=== PATIENT | female | born 1965 | race Caucasian/White ===

== ENCOUNTER 2017-02-04 13:21 | Inpatient (IN) ==
--- NOTE | 2017-02-03 21:27 | Discharge Summary ---
<Isidra Torres - Last Filed: 02/03/17 21:25> Date of Encounter: 02/03/17 - Discharge Diagnosis (1) Painful total knee replacement Priority: Primary Status: Acute Qualifiers: Encounter type: initial encounter Qualified Code(s): T84.84XA - Pain due to internal orthopedic prosthetic devices, implants and grafts, initial encounter; Z96.659 - Presence of unspecified artificial knee joint (2) Chronic pain Priority: Secondary Status: Chronic Comments: Takes [place] 7.5/325mg TID. HOLD. Qualifiers: Chronic pain type: other chronic pain Qualified Code(s): G89.29 - Other chronic pain (3) Arrhythmia Priority: Secondary Status: Chronic Qualifiers: Arrhythmia type: unspecified cardiac arrhythmia Qualified Code(s): I49.9 - Cardiac arrhythmia, unspecified (4) CAD (coronary artery disease) Priority: Secondary Status: Chronic Qualifiers: Coronary Disease-Associated Artery/Lesion type: unspecified vessel or lesion type [place] vs. transplanted heart: unspecified whether [place] or transplanted heart Associated angina: angina presence unspecified Qualified Code(s): I25.10 - Atherosclerotic heart disease of [place] coronary artery without angina pectoris (5) Pacemaker Priority: Secondary Status: Chronic (6) Factor 5 Leiden mutation, heterozygous Priority: Secondary Status: Chronic (7) COPD (chronic obstructive pulmonary disease) Priority: Secondary Status: Chronic Qualifiers: COPD type: unspecified COPD (8) Seizure Priority: Secondary Status: Chronic (9) Morbid obesity Priority: Secondary Status: Chronic Qualifiers: Obesity type: unspecified obesity type (10) History of MRSA infection Priority: Secondary Status: Chronic - Discharge Medications Home Medications: Albuterol Sulfate [Albuterol Inhaler] 2 puff IH Q4HR PRN 09/26/15 [History] Diazepam [Valium] 5 mg PO DAILY PRN 09/26/15 [History] Loratadine [Claritin] 10 mg PO DAILY 09/26/15 [History] Meloxicam [Mobic] 7.5 mg PO HS 09/26/15 [History] Nitroglycerin 0.4 mg SL Q5MIN PRN 09/26/15 [History] Potassium Gluconate 75 mg PO DAILY 09/26/15 [History] Topiramate [Topamax] 200 mg PO BID 09/26/15 [History] Gabapentin [Neurontin] 600 mg PO HS 04/13/16 [History] Multivitamin [Multi-Day Vitamins] 1 tab PO DAILY 04/13/16 [History] Propafenone HCl [Propafenone HCl ER] 225 mg PO Q12H 04/13/16 [History] Clobetasol Propionate 0.05% [Temovate] 1 appl TP BID 05/25/16 [History] Ferrous Sulfate 325 mg PO TID 10/24/16 [History] Lactobacillus [Culturelle] 1 each PO DAILY 10/24/16 [History] OxyCODONE Immed Rel [Roxicodone 5 MG] 5 - 10 mg PO Q6HR PRN #40 tablet 02/03/17 [Rx] Rivaroxaban [Xarelto] 20 mg PO HS #14 tablet 02/03/17 [Rx] Rivaroxaban [Xarelto] 20 mg PO HS 02/04/17 [History] Prozac 10 mg PO DAILY 02/05/17 [History] Allergies/Adverse Reactions: Allergies [place] Allergy (Severe, Verified 10/24/16 14:33) Anaphylaxis Per patient she "can't breath, highly allergic" cephalexin Allergy (Verified 10/24/16 14:33) Rash Cephalosporins Allergy (Verified 10/24/16 14:33) Hives codeine Allergy (Verified 10/24/16 14:33) Rash Opioids - Morphine Analogues Allergy (Verified 10/24/16 14:33) Hives patient reports opiods optiform Adverse Reaction (Uncoded 10/24/16 14:33) Blister Primary care physician: Chelo Juarez MD - Patient Status Disposition: Home, Self-Care Condition: Good - Discharge Instructions Follow Up With: Rogerio Toth MD [Partnered Physician] - 03/05/17 10:55 am Isidra Torres PAC [Physician Student Activities Director] - 02/14/17 9:45 am Chelo Juarez MD [Primary Care Provider] - - Hospital Course Hospital course: Ms. Haley is a 51 year old female - Time Spent with Patient Total time spent providing and/or coordinating discharge services: <Rogerio Toth - Last Filed: 02/06/17 06:44> Date of Encounter: 02/06/17 Time of Encounter: 06:43 - Discharge Diagnosis (1) Painful total knee replacement Priority: Primary Status: Acute Qualifiers: Encounter type: subsequent encounter Qualified Code(s): T84.84XD - Pain due to internal orthopedic prosthetic devices, implants and grafts, subsequent encounter; Z96.659 - Presence of unspecified artificial knee joint (2) Arrhythmia Priority: Secondary Status: Chronic Qualifiers: Arrhythmia type: unspecified cardiac arrhythmia Qualified Code(s): I49.9 - Cardiac arrhythmia, unspecified (3) CAD (coronary artery disease) Priority: Secondary Status: Chronic Qualifiers: Coronary Disease-Associated Artery/Lesion type: unspecified vessel or lesion type [place] vs. transplanted heart: unspecified whether [place] or transplanted heart Associated angina: angina presence unspecified Qualified Code(s): I25.10 - Atherosclerotic heart disease of [place] coronary artery without angina pectoris (4) Pacemaker Priority: Secondary Status: Chronic (5) Factor 5 Leiden mutation, heterozygous Priority: Secondary Status: Chronic (6) COPD (chronic obstructive pulmonary disease) Priority: Secondary Status: Chronic Qualifiers: COPD type: unspecified COPD Qualified Code(s): J44.9 - Chronic obstructive pulmonary disease, unspecified (7) Seizure Status: Chronic (8) Chronic pain Priority: Secondary Status: Chronic Qualifiers: Chronic pain type: other chronic pain Qualified Code(s): G89.29 - Other chronic pain Primary care physician: Chelo Juarez MD - Patient Status Functional capacity at discharge: uses cane/walker Overall status at discharge: patient is progressing back to baseline - Hospital Course Hospital course: Ms. Haley is a 51 year old female The patient had an uneventful postoperative course. They received antibiotics and physical therapy and were discharged in stable condition. There will follow -up in the office in 2 weeks. xeralt a DVT prophylaxis - Time Spent with Patient Total time spent providing and/or coordinating discharge services:
[2017-02-04] MEDS ORDERED: Vancomycin 1,250 MG in D5% in Water 250 ML IVPB ONE (13:55)
[2017-02-04] MEDS ORDERED: Ringers Solution, Lactated 1,000 ML IVC SCH ×2 (14:00→20:11)
--- NOTE | 2017-02-04 14:36 | History & Physical Report ---
Date of Encounter: 02/04/17 Time of Encounter: 14:35 24 Hour HP Update - Instructions Instructions: If the History and Physical is less than 30 days old and was completed prior to A.M. admission and or procedure and has NOT been updated on calendar day of procedure please complete this update prior to performing procedure. - Update Patient reports changes in Medical Condition: No Changes in examination, assessment, or condition: No Changes in Medication: No Preop tests/diagnostics Reviewed: Yes Surgery Remains Indicated: Yes Consent for Planned Operative Procedure(s) Verified: Yes - Pre-Operative Checklist Preoperative Checklist Indicated: No Prophylactic Antibiotic Ordered: Yes Is VTE Prophylaxis Indicated?: Yes
[2017-02-04] MEDS ORDERED: Gabapentin 300 MG CAPSULE PO ONE (15:11)
[2017-02-04] MEDS ORDERED: Famotidine 20 MG/2 ML VIAL IVP ONE (15:11)
--- NOTE | 2017-02-04 15:26 | Anesthesia Evaluation PreOp ---
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 NURSE History: Seizures (last one 2 years ago) Other Medical History: Denies Any Significant HX Anesthesia History: No Prior Anesthetic Complications Alcohol Use: none Drug use: none Medications and Allergies Albuterol Sulfate [Albuterol Inhaler] 2 puff IH Q4HR PRN 09/26/15 [History] Diazepam [Valium] 5 mg PO DAILY PRN 09/26/15 [History] Loratadine [Claritin] 10 mg PO DAILY 09/26/15 [History] Meloxicam [Mobic] 7.5 mg PO HS 09/26/15 [History] Nitroglycerin 0.4 mg SL Q5MIN PRN 09/26/15 [History] Potassium Gluconate 75 mg PO DAILY 09/26/15 [History] Topiramate [Topamax] 200 mg PO BID 09/26/15 [History] Gabapentin [Neurontin] 900 mg PO HS 04/13/16 [History] Multivitamin [Multi-Day Vitamins] 1 tab PO DAILY 04/13/16 [History] Propafenone HCl [Propafenone HCl ER] 225 mg PO Q12H 04/13/16 [History] Clobetasol Propionate 0.05% [Temovate] 1 appl TP BID 05/25/16 [History] Ferrous Sulfate 325 mg PO TID 10/24/16 [History] Lactobacillus [Culturelle] 1 each PO DAILY 10/24/16 [History] OxyCODONE Immed Rel [Roxicodone 5 MG] 5 - 10 mg PO Q6HR PRN #40 tablet 02/03/17 [Rx] Rivaroxaban [Xarelto] 20 mg PO HS #14 tablet 02/03/17 [Rx] Rivaroxaban [Xarelto] 20 mg PO HS 02/04/17 [History] Allergies walnut Allergy (Severe, Verified 10/24/16 14:33) Anaphylaxis Per patient she "can't breath, highly allergic" cephalexin Allergy (Verified 10/24/16 14:33) Rash Cephalosporins Allergy (Verified 10/24/16 14:33) Hives codeine Allergy (Verified 10/24/16 14:33) Rash Opioids - Morphine Analogues Allergy (Verified 10/24/16 14:33) Hives patient reports opiods optiform Adverse Reaction (Uncoded 10/24/16 14:33) Blister - Meds/Allergy Pre-op Review Medications Reviewed: Yes Allergies Reviewed: Yes Beta Blockers on Current Med List: No Anesthesia Results - Labs Laboratory Tests 01/25/17 01/25/17 13:36 13:36 Hgb 12.0 Hct 38.4 Plt Count 165 Sodium 139 Potassium 4.6 H BUN 29 H Creatinine 1.16 H - Imaging EKG: report reviewed (SR AV Block) Anesthesia Exam O2 Sat Height 1.6 m Height 1.6 m Weight 89.811 kg Weight 89.811 kg O2 Sat by Pulse Oximetry 93 Vital Signs Temp Pulse Resp BP Pulse Ox 98.2 F 83 18 87/68 93 02/04/17 14:07 02/04/17 14:07 02/04/17 14:07 02/04/17 14:07 02/04/17 14:07 Height: 5'3 Weight: 198 lbs NPO (# of Hours): MN Pain Scale: 1 - HEENT Pupil (Motor): Pupils equal, EOMI Mallampati: II Teeth: Normal Oral Opening: Greater than 3 - SUPERVISING NURSE LOC: Oriented SUPERVISING NURSE Motor: Normal RUE, Normal LUE, Normal RLE, Normal LLE, Normal Face SUPERVISING NURSE Sensory: Normal: RUE, LUE, RLE, LLE, Face - Cardiac Rhythm: Regular Murmur: None JVD: No Carotid Bruit: No - Pulmonary Breath Sounds: bilateral Clear Anesthesia Assess/Plan ASA Score: 3 (HTN CAD) Modified [place] Scale for Level of Consciousness: Cooperative, oriented, and tranquil Anesthetic Plan: General, Regional Monitoring Plan: Standard Monitors Recovery Plan: PACU (Discussed GA and RA, agrees to proceed)
[2017-02-04] MEDS ORDERED: Tetracaine/PF 20 MG/2 ML AMPUL SPINA ONE (16:26)
[2017-02-04] MEDS ORDERED: ROPIVACAINE HCL/PF 0.5% 30 ML VIAL ONE (16:26)
[2017-02-04] MEDS ORDERED: Bupivacaine/Clonidine Syringe 1 EACH SYRINGE ONE (16:27)
[2017-02-04] MEDS ORDERED: *HR* Midazolam HCl 2 MG/2 ML VIAL ONE (16:34)
[2017-02-04] MEDS ORDERED: *HR* FentaNYL (PF) 100 MCG/2 ML VIAL ONE ×2 (16:34→17:10)
[2017-02-04] MEDS ORDERED: *HR* Propofol 200 MG/20 ML VIAL IVP ONE (16:52)
[2017-02-04] MEDS ORDERED: Lidocaine -MPF 2% 2 ML VIAL ONE (16:54)
--- NOTE | 2017-02-04 17:00 | Anesthesia Procedures ---
Date of Encounter: 02/04/17 Time of Encounter: 16:45 Procedures: Anesthesia - Nerve Block Procedure Date: 02/04/17 Time: 16:45 Checklist: Correct Patient Identifier Correct side: Right Blood Thinner: No Monitor Applied: EKG, BP, Pulse Oximetry Supplemental Oxygen via Nasal Cannula (L/min): 2 Sedation: Versed (mg): 2 Sedation: Fentanyl (mcg): 100 Indication: Post Op Analgesia Pre-op Neuro Deficits: No Block Type: Femoral, Other (iPACK) Catheter placed: No Sterile Technique: Yes Ultrasound used: Yes Anatomy identified: Yes Visual spread of Local: Yes Neuro Stimulation: Yes Nerve Stimulator Range: 0.2 - 0.4 mA Blood on Needle Aspiration: No Smooth Injection of Local: No Pain with Injection of Local: No Prep: Chlorhexadine Needle: 22 x 50 mm Stimuplex, 21 x 100 mm Stimuplex Local: 0.25% Bupivicaine w/Clonidine 20 mcg/cc, Ropivacaine (30cc) Number of Attempts: 1 Complications: None/effective block Vitals: VSS
[2017-02-04] MEDS ORDERED: *HR* Succinylcholine 200 MG/10 ML VIAL IVP ONE (17:14)
[2017-02-04] MEDS ORDERED: EPHEDrine 50 MG/ML VIAL ONE (17:54)
[2017-02-04] MEDS ORDERED: *HR* Enoxaparin 30 MG/0.3 ML SYRINGE SQ SCH (18:00)
--- NOTE | 2017-02-04 18:32 | Orthopedic Operative Note ---
Date of procedure: 02/04/17 Pre-op diagnosis: Painful aseptic loosening right total knee Post-op diagnosis: same Procedure: Procedure: Right revision total knee patellectomy Estimated blood loss: 500 mL Hardware: [place] hinge knee system: 24 mm Rajani extra small femur with 210 mm distal augments 10 x 1 55 stem tibia small 10 x 80 stem Exam Under anesthesia: Loss full extension 20 degrees Procedural Notes: Loose femoral component. Operative procedure: The patient was brought to the operating room and placed on the operating room table. After general anesthesia was administered the operative knee was examined. Findings were noted in the exam under anesthesia. The operative extremity was prepped and draped in sterile surgical fashion. The patient received IV antibiotics prior to skin incision. A standard midline incision was made centered over the patella through the old incision. The incision was made through the skin and subcutaneous tissue. A medial parapatellar tendon approach was performed. Care was taken to preserve tissue along the medial aspect of the patella. And to protect the patella tendon. The deep MCL was released off the medial tibia. The patella was excised up periosteally. Fluid was encountered this was normal joint fluid, Cultures were obtained and gram . The knee was brought into flexion the poly-was removed. The femur was loose and removed by hand. This has been the patient's third revision at least significant bone loss from previous surgeries. Attention was then turned to the tibial component. The tibia was well fixed required removal with osteotome. Patient has significant bone loss from previous surgeries. No additional bone loss was encountered. Originally the plan was do a proximal tibial replacement but the patient intact extensor mechanism did not want to disrupt this site to back to the hinge component. The tibia was reamed under fluoroscopic assistance to a 10 x 80 stem. It was sized to an extra small. This sat slightly off center. The femur was reamed to a 10 x 1 55 and extra small. Trial reduction revealed full extension with a +24 Rajani. All trial components removed. The knee septic 2 minutes with a Betadine saline solution. The tibia cemented first followed by the femur. The poly-was seated and the hinge component was constructed. Knee was brought into full extension while cement hardened. After the cement hardened the knee was irrigated out again. The extensor mechanism was closed with a running #2 PDS suture. The deep tissue was irrigated and closed deep with #1 PDS suture superficially with 0 PDS suture. The skin was closed with skin mikaela. The patient was placed in a sterile dressing and postoperative brace. They were extubated and transferred to recovery room in stable condition. Anesthesia: GETA Surgeon: Rogerio Toth Condition: stable Disposition: PACU
[2017-02-04] MEDS ORDERED: Ondansetron 4 MG/2 ML VIAL ONE (18:47)
[2017-02-04] MEDS ORDERED: Dexamethasone 4 MG/ML VIAL ONE (18:47)
[2017-02-04] MEDS: *HR* HYDROmorphone (PF) 1 MG/ML SYRINGE IVP PRN ×2 (18:55→19:00)
[2017-02-04] MEDS ORDERED: *HR* HYDROmorphone (PF) 1 MG/ML SYRINGE ONE (18:56)
--- NOTE | 2017-02-04 19:16 | Anesthesia Evaluation Post Op ---
Date of Encounter: 02/04/17 Time of Encounter: 19:15 - Vital Signs Vital Signs: Vital Signs/O2 Sat/Glucose, Most Current Temp Pulse Resp BP Pulse Ox 02/04/17 19:12 87 14 91/48 96 02/04/17 19:02 88 14 84/46 98 02/04/17 18:52 97.9 F 85 14 90/41 98 02/04/17 16:59 72 15 93/57 98 02/04/17 16:35 76 16 100/57 98 - Lungs Lungs: Clear Ascult./Percussion - Airway Airway: Non-obstructed - Cardiovascular Regular Rate - Mental Status Mental Status: Alert & Oriented, Answers Appropriately - Pain Pain Scale: 0 - Nausea Vomiting Nausea Vomiting: Not Present - Hydration Hydration: Ice chips - Discharge PostOp Status: Transfer Patient to floor
[2017-02-04 19:17] LABS: Hematocrit 32.7 % (35.3-44.9); Hemoglobin 10.4 g/dL (11.5-15.4)
[2017-02-04] MEDS ORDERED: Ringers Solution, Lactated 1,000 ML ONE (19:29)
[2017-02-04] MEDS ORDERED: Sennosides 8.6 MG TABLET PO PRN (20:11)
[2017-02-04] MEDS ORDERED: Naloxone 0.4 MG/ML INJ IVP PRN (20:11)
[2017-02-04] MEDS ORDERED: Ondansetron 4 MG/2 ML VIAL IVP PRN (20:11)
[2017-02-04] MEDS ORDERED: *HR* OxyCODONE Immed Rel 5 MG TABLET PO PRN (20:11)
[2017-02-04] MEDS ORDERED: MOM Conc 10 ML UD.LIQ PO PRN (20:11)
[2017-02-04] MEDS ORDERED: Nitroglycerin 0.4 MG TAB.SUBL SL PRN (20:11)
[2017-02-04] MEDS ORDERED: *HR* HYDROmorphone (PF) 1 MG/ML SYRINGE IVP PRN (20:11)
[2017-02-04] MEDS ORDERED: Temazepam 15 MG CAPSULE PO PRN (20:11)
[2017-02-04] MEDS ORDERED: diazePAM 5 MG TABLET PO PRN (20:11)
[2017-02-04] MEDS ORDERED: Acetaminophen 325 MG TABLET PO PRN (20:11)
[2017-02-04] MEDS ORDERED: Gabapentin 300 MG CAPSULE PO SCH (21:00)
[2017-02-04] MEDS: *HR* OxyCODONE Immed Rel 5 MG TABLET PO PRN (21:23)
[2017-02-04] MEDS: Topiramate 100 MG TABLET PO SCH (21:24)
[2017-02-04] MEDS: *HR* Rivaroxaban 10 MG TABLET PO SCH (21:26)
[2017-02-04] MEDS: Clindamycin 900 MG/50 ML 900 MG/50 ML IV.SOLN IVPB SCH (21:26)
[2017-02-04] MEDS: Clobetasol Propionate 0.05% TP SCH (21:27)
[2017-02-05] MEDS: *HR* OxyCODONE Immed Rel 5 MG TABLET PO PRN ×5 (03:09→23:24)
[2017-02-05] MEDS: Clindamycin 900 MG/50 ML 900 MG/50 ML IV.SOLN IVPB SCH (04:49)
--- NOTE | 2017-02-05 06:18 | Orthopedics Progress Note ---
Date of Encounter: 02/05/17 Time of Encounter: 06:18 - Assessment and Plan (1) Painful total knee replacement Current Visit: No Status: Acute Qualifiers: Encounter type: subsequent encounter Qualified Code(s): T84.84XD - Pain due to internal orthopedic prosthetic devices, implants and grafts, subsequent encounter; Z96.659 - Presence of unspecified artificial knee joint (2) Arrhythmia Current Visit: No Status: Chronic Qualifiers: Arrhythmia type: unspecified cardiac arrhythmia Qualified Code(s): I49.9 - Cardiac arrhythmia, unspecified (3) CAD (coronary artery disease) Current Visit: No Status: Chronic Qualifiers: Coronary Disease-Associated Artery/Lesion type: unspecified vessel or lesion type [place] vs. transplanted heart: unspecified whether [place] or transplanted heart Associated angina: angina presence unspecified Qualified Code(s): I25.10 - Atherosclerotic heart disease of [place] coronary artery without angina pectoris (4) Pacemaker Current Visit: No Status: Chronic (5) Factor 5 Leiden mutation, heterozygous Current Visit: No Status: Chronic (6) COPD (chronic obstructive pulmonary disease) Current Visit: No Status: Chronic Qualifiers: COPD type: unspecified COPD Qualified Code(s): J44.9 - Chronic obstructive pulmonary disease, unspecified (7) Seizure Current Visit: No Status: Chronic (8) Chronic pain Current Visit: Yes Status: Chronic Qualifiers: Chronic pain type: other chronic pain Qualified Code(s): G89.29 - Other chronic pain Subjective Interval history: Patient was seen this morning doing well without complaints. Afebrile vital signs stable. Operative extremity: Neurovascularly intact Dressing clean dry and intact [place] nontender Assessment and plan: Continue with postoperative care Hematocrit 32 Objective Vital signs: Vital Signs Temp Pulse Resp BP Pulse Ox 02/05/17 04:31 98.1 F 77 14 83/47 95 02/04/17 23:40 98.0 F 85 16 91/59 96 02/04/17 23:31 98 F 86 14 92/55 95 02/04/17 22:10 98.8 F 93 16 97/58 96 02/04/17 21:00 98.1 F 93 17 106/66 96 02/04/17 20:30 98.5 F 82 16 94/59 97 02/04/17 20:00 97.6 F 82 15 92/55 97 02/04/17 19:32 89 14 92/51 96 02/04/17 19:22 97.8 F 89 14 93/52 96 02/04/17 19:12 87 14 91/48 96 02/04/17 19:02 88 14 84/46 98 02/04/17 18:52 97.9 F 85 14 90/41 98 02/04/17 16:59 72 15 93/57 98 02/04/17 16:35 76 16 100/57 98 02/04/17 14:07 98.2 F 83 18 87/68 93 Intake and Output 02/04/17 02/04/17 02/05/17 15:59 23:59 07:59 Intake Total 1050 / 1050 50 / 50 Output Total 800 / 800 450 / 450 Balance 250 / 250 -400 / -400 Intake: IV Fluids 1050 / 1050 50 / 50 Lactated Ringers 1,000 ML 1000 / 1000 @ 75 mls/hr IVC .[id number] [facility] Rx#:[id number] Cleocin 900 MG/50 ML 900 50 / 50 50 / 50 mg In 50 ml @ 50 mls/hr IVPB Q8H [facility] Rx#: [id number] Output: Urine 300 / 300 450 / 450 Estimated Blood Loss 500 / 500 Other: # Voids 1 1 Weight 89.811 kg - Labs CBC & BMP: 02/04/17 19:06 Labs: Abnormal lab results Hgb 10.4 g/dL (11.5-15.4) L 02/04/17 19:06 Hct 32.7 % (35.3-44.9) L 02/04/17 19:06 - VTE Documentation of Mechanical Device: Venous foot pump, device Consult Discharge Plan - Plan Referrals: Chelo Juarez MD [Primary Care Provider] -
[2017-02-05] MEDS ORDERED: Gabapentin 300 MG CAPSULE PO SCH (06:19)
[2017-02-05 06:21] LABS: Hematocrit 32.3 % (35.3-44.9); Hemoglobin 10.3 g/dL (11.5-15.4)
[2017-02-05 06:30] LABS: BUN/Creatinine Ratio 29 (6-26); Blood Urea Nitrogen 30 mg/dL (7-20); Calcium 8.7 mg/dL (8.6-10.8); Carbon Dioxide 19 mEq/L (19-29); Chloride 110 mEq/L (98-109); Glucose 97 mg/dL (70-99); Osmolality,Calculated 288 (280-300); Potassium 4.3 mEq/L (3.5-4.5); Sodium 136 mEq/L (136-145); eGFR For African Americans > 60 (> 60); eGFR For Non-African Americans 56 (> 60)
[2017-02-05] MEDS: Lactobacillus 1 EACH CAP.SPRINK PO SCH (09:18)
[2017-02-05] MEDS: Multivit/Ca/Min/Fe/FA 1 TAB TABLET PO SCH (09:19)
[2017-02-05] MEDS: Topiramate 100 MG TABLET PO SCH ×2 (09:19→20:53)
[2017-02-05] MEDS: POTASSIUM GLUCONATE PO SCH (09:19)
[2017-02-05] MEDS: Loratadine 10 MG TABLET PO SCH (09:19)
[2017-02-05] MEDS: Clobetasol Propionate 0.05% TP SCH ×2 (09:19→20:54)
[2017-02-05] MEDS: *HR* Rivaroxaban 10 MG TABLET PO SCH (20:52)
[2017-02-05] MEDS ORDERED: FLUoxetine HCl 10 MG CAPSULE PO SCH (21:00)
[2017-02-06] MEDS: *HR* OxyCODONE Immed Rel 5 MG TABLET PO PRN ×2 (03:33→08:33)
[2017-02-06 04:54] LABS: Hemoglobin 9.7 g/dL (11.5-15.4)
[2017-02-06 05:19] LABS: BUN/Creatinine Ratio 29 (6-26); Blood Urea Nitrogen 29 mg/dL (7-20); Calcium 8.5 mg/dL (8.6-10.8); Carbon Dioxide 19 mEq/L (19-29); Chloride 110 mEq/L (98-109); Glucose 87 mg/dL (70-99); Osmolality,Calculated 287 (280-300); Potassium 4.1 mEq/L (3.5-4.5); Sodium 136 mEq/L (136-145); eGFR For African Americans > 60 (> 60); eGFR For Non-African Americans 59 (> 60)
--- NOTE | 2017-02-06 06:45 | Orthopedics Progress Note ---
Date of Encounter: 02/06/17 Time of Encounter: 06:44 - Assessment and Plan (1) Painful total knee replacement Current Visit: No Status: Acute Qualifiers: Encounter type: subsequent encounter Qualified Code(s): T84.84XD - Pain due to internal orthopedic prosthetic devices, implants and grafts, subsequent encounter; Z96.659 - Presence of unspecified artificial knee joint (2) Arrhythmia Current Visit: No Status: Chronic Qualifiers: Arrhythmia type: unspecified cardiac arrhythmia Qualified Code(s): I49.9 - Cardiac arrhythmia, unspecified (3) CAD (coronary artery disease) Current Visit: No Status: Chronic Qualifiers: Coronary Disease-Associated Artery/Lesion type: unspecified vessel or lesion type [place] vs. transplanted heart: unspecified whether [place] or transplanted heart Associated angina: angina presence unspecified Qualified Code(s): I25.10 - Atherosclerotic heart disease of [place] coronary artery without angina pectoris (4) Pacemaker Current Visit: No Status: Chronic (5) Factor 5 Leiden mutation, heterozygous Current Visit: No Status: Chronic (6) COPD (chronic obstructive pulmonary disease) Current Visit: No Status: Chronic Qualifiers: COPD type: unspecified COPD Qualified Code(s): J44.9 - Chronic obstructive pulmonary disease, unspecified (7) Seizure Current Visit: No Status: Chronic (8) Chronic pain Current Visit: Yes Status: Chronic Qualifiers: Chronic pain type: other chronic pain Qualified Code(s): G89.29 - Other chronic pain Subjective Interval history: Patient was seen this morning doing well without complaints. Afebrile vital signs stable. Operative extremity: Neurovascularly intact Dressing clean dry and intact Calves nontender Assessment and plan: Continue with postoperative care Hematocrit 30 discharged Objective Vital signs: Vital Signs Temp Pulse Resp BP Pulse Ox 02/06/17 04:00 97.8 F 87 17 100/62 95 02/06/17 00:00 99.6 F 82 18 86/50 94 02/05/17 20:00 99.2 F 86 17 80/46 95 02/05/17 19:23 80/44 02/05/17 14:55 98.3 F 92 18 82/58 96 02/05/17 11:26 79 18 84/57 94 02/05/17 11:02 98.0 F 79 18 84/57 94 Intake and Output 02/05/17 02/05/17 02/06/17 15:59 23:59 07:59 Intake Total 120 / 120 400 / 400 650 / 650 Output Total 700 / 700 Balance 120 / 120 400 / 400 -50 / -50 Intake: Oral 120 / 120 400 / 400 650 / 650 Output: Urine 700 / 700 Other: Meal Breakfast Percent of Meal Consumed 100% # Voids 2 1 - Labs CBC & BMP: 02/06/17 04:12 02/06/17 04:12 Labs: Abnormal lab results Hgb 9.7 g/dL (11.5-15.4) L 02/06/17 04:12 Hct 30.0 % (35.3-44.9) L 02/06/17 04:12 Chloride 110 mEq/L (98-109) H 02/06/17 04:12 BUN 29 mg/dL (7-20) H 02/06/17 04:12 Est GFR (Non-Af Amer) 59 (> 60) L 02/06/17 04:12 BUN/Creatinine Ratio 29 (6-26) H 02/06/17 04:12 Calcium 8.5 mg/dL (8.6-10.8) L 02/06/17 04:12 - VTE Documentation of Mechanical Device: Venous foot pump, device Consult Discharge Plan - Plan Referrals: Rogerio Toth MD [Partnered Physician] - 03/05/17 10:55 am Isidra Torres, PAC [Physician Music Copyist] - 02/14/17 9:45 am Chelo Juarez MD [Primary Care Provider] -
[2017-02-06] MEDS: Loratadine 10 MG TABLET PO SCH (08:33)
[2017-02-06] MEDS: Topiramate 100 MG TABLET PO SCH (08:33)
[2017-02-06] MEDS: Lactobacillus 1 EACH CAP.SPRINK PO SCH (08:33)
[2017-02-06] MEDS: POTASSIUM GLUCONATE PO SCH (08:34)
[2017-02-06] MEDS: Multivit/Ca/Min/Fe/FA 1 TAB TABLET PO SCH (08:34)
[2017-02-06] MEDS: Clobetasol Propionate 0.05% TP SCH (08:34)
[2017-02-06 10:16] VITALS: BP 89/52
== END 2017-02-06 12:10 | disposition home or self-care (01) | DRG 467 ==
LOC: SAMDAY 13:21 → 3NENU 20:05
PROVIDERS: ADMIT Orthopaedic Surgery; ATTEND Orthopaedic Surgery

== ENCOUNTER 2018-06-12 11:16 | Inpatient (IN) ==
--- NOTE | 2018-06-12 09:51 | Anesthesia Evaluation PreOp ---
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 History: Seizures (last seizure 3 years ago, well controlled on medication) Other Medical History: Renal, GERD, Other (Facor 5 Leiden S/P IVC filter) Anesthesia History: No Prior Anesthetic Complications, Past Anesthesia Alcohol Use: none Drug use: none Medications and Allergies Albuterol Sulfate [Albuterol Inhaler] 1 - 2 puff IH Q4-6H PRN 04/07/18 [History] Potassium Chloride [Klor-Con 10] 75 mg PO DAILY 04/07/18 [History] Rivaroxaban [Xarelto] 20 mg PO HS 04/07/18 [History] Cyclobenzaprine HCl 5 - 10 mg PO TID PRN 05/01/18 [History] Nitroglycerin [Nitrostat] 0.4 mg SL Q5M PRN MDD X3 DOSES CALL 911 05/01/18 [ History] Ciprofloxacin Lactate [Ciprofloxacin] 400 mg IV BID 05/27/18 [History] Oxycodone HCl/Acetaminophen [Percocet 5-325 mg Tablet] 5 mg PO PRN PRN 06/12/18 [History] Topiramate [Topamax] 200 mg PO BID 06/12/18 [History] 3 Allergy/AdvReac Type Severity Reaction Status Date / Time walnut Allergy Severe Difficulty Verified 06/10/18 10:59 Breathing Opioids - Morphine Analogues Allergy Itching Verified 06/10/18 10:59 cephalexin AdvReac Nausea Verified 06/10/18 10:59 codeine AdvReac Itching Verified 06/10/18 10:59 optiform AdvReac Blister Uncoded 04/07/18 08:21 - Meds/Allergy Pre-op Review Medications Reviewed: Yes Allergies Reviewed: Yes Beta Blockers on Current Med List: Yes If Beta Blockers taken, Date/Time (Last Dose taken): 06/12/2018 at 0730 Anesthesia Results - Labs Laboratory Tests 06/10/18 06/10/1806/10/18 11:40 11:40 11:40 WBC 5.0 Hgb 11.8 Hct 36.5 Plt Count 157 PT 10.6 INR 0.9 APTT 29.2 Sodium 140 Potassium 4.1 BUN 32 H Creatinine 0.94 - Imaging EKG: report reviewed (07/08/2017 ELECTRONIC ATRIAL PACEMAKER MODERATE VOLTAGE CRITERIA FOR LVH, CONSIDER NORMAL VARIANT [MEETS CRITERIA IN ONE OF: R(aVL), S( V1), R(V5), R(V5/V6)+S(V1)] POSSIBLE ANTERIOR MYOCARDIAL INFARCTION [30 ms Q WAVE IN V3/V4, OR R < 0.2 mV IN V4], OF INDETERMINATE AGE POOR R WAVE PROGRESSION Left axis deviation) Additional studies: 08/19/2017 Echo Impressions: LVEF 60%. Normal LV systolic function with regional variation (see Diagram below). Mild left ventricular diastolic dysfunction. Normal right ventricular structure and function. Mild chordal MARISOL without LVOTO. Mild tricuspid regurgitation. No pulmonary hypertension. 08/09/2017 Stress Impression: Perfusion imaging was negative for ischemia or infarct. Pharmacologic ECG was non diagnostic for ischemia. Patient had no chest pain with stress. No arrhythmias noted with stress. Gated EF = 64%. The LV is not dilated. There is no evidence of TID. Findings: Stress Note * Resting ECG demonstrated normal sinus rhythm. * No baseline arrhythmias were noted. * Pharmacologic stress ECG is non diagnostic for ischemia due to failure to reach target heartrate. * No chest pain or arrhythmias during stress. Hemodynamic responses * The patient demonstrated a blunted response blood pressure response. Study Quality * Study quality is average. Gated EF % * Gated EF = 64%. Left Ventricle * The left ventricle is not dilated. NORMALS * Normal wall motion. * All other segmental perfusion normal in stress. * All other segmental perfusion normal in rest. Apical Perfusion Rest * The apex segment shows a mild reduction in perfusion. Apical Perfusion Stress * The apex segment shows a mild reduction in perfusion. TID * No evidence of transient ischemic dilatation. Anesthesia Exam O2 Sat Height 1.7 m Height 1.7 m Height 1.7 m Weight 97.522 kg Weight 97.522 kg Weight 97.522 kg O2 Sat by Pulse Oximetry 100 O2 Sat by Pulse Oximetry 100 Vital Signs Temp Pulse Resp BP Pulse Ox 97.9 F 86 18 108/68 100 08/16/18 11:38 06/12/18 11:38 06/12/18 11:38 06/12/18 11:38 06/12/18 11:38 Height: 5'7'' Weight: 215 lbs NPO (# of Hours): 8 Pain Scale: 8 (right knee) Pain Scale Used: Numeric (1 - 10) - HEENT Pupil (Motor): EOMI Mallampati: II Teeth: Normal, Missing, Prosthesis Denture Type: Upper: Partial Oral Opening: Greater than 3 - OYSTER UNLOADER LOC: Oriented OYSTER UNLOADER Motor: Normal RUE, Normal LUE, Normal LLE, Normal Face, Deficit RLE OYSTER UNLOADER Sensory: Normal: RUE, LUE, RLE, LLE, Face - Cardiac Rhythm: Regular Murmur: None - Pulmonary Breath Sounds: bilateral Clear Respiratory Effort: Symmetrical Anesthesia Assess/Plan ASA Score: 3 Modified [place] Scale for Level of Consciousness: Cooperative, oriented, and tranquil Anesthetic Plan: General, Regional Monitoring Plan: Standard Monitors Recovery Plan: PACU
--- NOTE | 2018-06-12 11:31 | History & Physical Report ---
Date of Encounter: 06/12/18 Time of Encounter: 11:31 24 Hour HP Update - Instructions Instructions: If the History and Physical is less than 30 days old and was completed prior to A.M. admission and or procedure and has NOT been updated on calendar day of procedure please complete this update prior to performing procedure. - Update Patient reports changes in Medical Condition: No Changes in examination, assessment, or condition: No Changes in Medication: No Preop tests/diagnostics Reviewed: Yes Surgery Remains Indicated: Yes Consent for Planned Operative Procedure(s) Verified: Yes - Pre-Operative Checklist Preoperative Checklist Indicated: No Prophylactic Antibiotic Ordered: Yes Is VTE Prophylaxis Indicated?: Yes
--- NOTE | 2018-06-12 11:34 | Discharge Summary ---
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 transplanted heart: [place] heart Associated angina: angina presence unspecified Qualified Code(s): I25.10 - Atherosclerotic heart disease of [place] coronary artery without angina pectoris (4) COPD (chronic obstructive pulmonary disease) Priority: Secondary Status: Chronic Qualifiers: COPD type: unspecified COPD Qualified Code(s): J44.9 - Chronic obstructive pulmonary disease, unspecified (5) Chronic pain Priority: Secondary Status: Chronic Qualifiers: Chronic pain type: other chronic pain Qualified Code(s): G89.29 - Other chronic pain (6) Factor 5 Leiden mutation, heterozygous Priority: Secondary Status: Chronic (7) History of MRSA infection Priority: Secondary Status: Chronic (8) Pacemaker Priority: Secondary Status: Chronic (9) Seizure Priority: Secondary Status: Chronic (10) 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 Haley is a 52 year old female Status post revision right total knee. Cultures negative. Patient with acute blood loss anemia requiring transfusion. Received antibiotics physical therapy discharge stable condition - Time Spent with Patient Total time spent providing and/or coordinating discharge services: - Discharge Medications Home Medications: Potassium Chloride [Klor-Con 10] 75 mg PO DAILY 04/07/18 [History] Rivaroxaban [Xarelto] 20 mg PO HS 04/07/18 [History] Nitroglycerin [Nitrostat] 0.4 mg SL Q5M PRN MDD X3 DOSES CALL 911 05/01/18 [ History] OxyCODONE Immed Rel [Roxicodone 5 MG] 5 mg PO Q4HR PRN 5 Days #20 tablet [Rx] Topiramate [Topamax] 200 mg PO BID 06/12/18 [History] Allergies/Adverse Reactions: 3 Allergy/AdvReac Type Severity Reaction Status Date / Time walnut Allergy Severe Difficulty Verified 06/10/18 10:59 Breathing Opioids - Morphine Analogues Allergy Itching Verified 06/10/18 10:59 cephalexin AdvReac Nausea Verified 06/10/18 10:59 codeine AdvReac Itching Verified 06/10/18 10:59 optiform AdvReac Blister Uncoded 04/07/18 08:21 Primary care physician: Chelo Juarez MD - Patient Status Disposition: Home Health Service Condition: Good Functional capacity at discharge: uses cane/walker Overall status at discharge: patient is progressing back to baseline - Discharge Instructions Follow Up With: Clifton Mahoney DO [Partnered Physician] - 06/23/18 9:00 am Rogerio Toth MD [Partnered Physician] - 07/09/18 5:40 pm Isidra Torres PAC [Physician Recovery Room Rn] - 06/19/18 1:00 pm (ALSO, 06/27/18 @ 8:30AM ) Matthias Villasenor MD [Partnered Physician] - 10/09/18 3:00 pm Chelo Juarez MD [Primary Care Provider] - Yovany Shaver MD [Partnered Physician] - 06/19/18 10:45 am Additional Instructions: Discharge Instructions: Total Knee Replacement Please call [facility] ([phone]), your Primary Care Physician, or report to the Emergency Room if you have any of the following symptoms: Nausea, vomiting, fever greater that 101.5, swelling, chest pain, shortness of breath, increased pain/redness/drainage/odor for your incision site, numbness/ tingling, or any other concerning symptoms. ACTIVITY:Weight-bearing as tolerated. You may progress off support (crutches or walker) as tolerated. Incentive Spirometer 10 times an hour. MEDICATIONS: Upon discharge resume your home medications. Take all the medications as prescribed. Take a stool softener if taking narcotic pain medications. Stool softeners are only effective if you drink enough fluids. Drink 6-8 glass of water or fluids a day, unless this is not allowed for another health problem. Despite using stool softeners, if you haven't had a bowel movement in 3 days, please switch to a gentle laxative. Gentle laxatives are sold over the counter. You should have a bowel movement within 24 hours, if not call the office. You will be discharged from the hospital with a prescription for pain medication. You are encouraged to decrease the use of narcotic pain medication as tolerated. Should you require a refill, please call the office. [facility] prescribes narcotic pain medication for only 4-6 weeks after surgery. If you require pain medication beyond this time period, you may be referred to your Primary Care Physician or to the Pain Clinic for further evaluation. Plan ahead for refills on pain medication as many narcotics either need to be picked up at the office or mailed. It is best to call 48-72 hours in advance of needing a prescription refill so you don't run out of medication. To help control the post-operative pain, you may take NSAIDs (Aleve,Advil, Motrin, Ibuprofen, Naprosyn) or Tylenol as prescribed on the bottle in addition to the pain medication. ANTICOAGULATION (blood thinners): Continue your Aspirin, Lovenox or Coumadin as prescribed to help prevent a blood clot in the leg or in the lungs. As long as your incision remains dry and you tolerate the NSAIDs (Aleve, Advil, Motrin, ibuprofen, naprosyn), it is OK to use the NSAIDS while you are taking your anticoagulation medication. Should your incision start to drain, stop the NSAID and contact our office. Common symptoms of blood clot in the legs include: localized pain, swelling, calf tenderness, redness or discoloration of the skin. Blood clot in the lung symptoms include: shortness of breath, rapid pulse, sweating, and chest pain that worsens with deep breathing, coughing up blood, lightheadedness, feelings of anxiety. If you experience any of these symptoms notify your physician immediately, go to the emergency room, or if having trouble breathing, call 911. WOUND CARE: Leave the dressing on for 7 to 10days. You may change the dressing if it becomes saturated greater than 50%. Do not get the dressing wet at anytime. Wash your hands with antibacterial soap, rinse and dry prior to any wound care. If you have mikaela the visiting nurse or rehab facility can remove the stapes 10-14 days after surgery and place steri-strips across the wound. Leave the steri-strips in place until they fall off on their won. You may let water from the shower run on top of the steri-strips. If you do not have a visiting nurse or rehab facility, you will need to return to the office at 10-14 days for the mikaela to be removed. If you have itching or redness around the dressing call the office. FOLLOW-UP: Please follow up with your surgeon in the orthopedic clinic in 4 weeks from the day of surgery. If you have mikaela that need to be removed, you will need to come back to the office in 10-14 days from the day of surgery.
[2018-06-12] MEDS ORDERED: Clindamycin 900 MG/50 ML 900 MG/50 ML IV.SOLN IVPB ONE (11:37)
[2018-06-12] MEDS ORDERED: Ringers Solution, Lactated 1,000 ML IVC SCH (11:45)
[2018-06-12] MEDS ORDERED: Bupivacaine/Clonidine Syringe 1 EACH SYRINGE ONE (12:59)
[2018-06-12] MEDS ORDERED: ROPIVACAINE HCL/PF 0.5% 30 ML VIAL ONE (12:59)
[2018-06-12] MEDS ORDERED: *HR* Promethazine 25 MG/ML VIAL IVP PRN (13:22)
[2018-06-12] MEDS ORDERED: Dexamethasone 4 MG/ML VIAL IVP ONE (13:22)
[2018-06-12] MEDS ORDERED: Ethanol\\Acetic Acid\\Na Ace\\Ben 1,000 ML IRRIG.SOLN IR ONE ×2 (13:22→14:06)
[2018-06-12] MEDS ORDERED: Ondansetron 4 MG/2 ML VIAL IVP ONE (13:22)
[2018-06-12] MEDS ORDERED: *HR* Labetalol 20 MG/4 ML SYRINGE IVP PRN (13:22)
--- NOTE | 2018-06-12 13:26 | Anesthesia Procedures ---
Date of Encounter: 06/12/18 Time of Encounter: 13:00 Procedures: Anesthesia - Nerve Block Procedure Date: 06/12/18 Time: 13:00 Allergies/Adv Reactions: mutiple see chart Pre-op Diagnosis: right knee revision Surgical Procedure: right knee arthrtitis Checklist: Correct Patient Identifier, Correct procedure, History checked Correct side: Right Blood Thinner: No Monitor Applied: EKG, BP, Pulse Oximetry Supplemental Oxygen via Nasal Cannula (L/min): 2 Sedation: Versed (mg): 2 Sedation: Fentanyl (mcg): 100 Indication: Post Op Analgesia Pre-op Neuro Deficits: No Block Type: Femoral (ipack ) Catheter placed: No Sterile Technique: Yes Ultrasound used: Yes Anatomy identified: Yes Visual spread of Local: Yes Neuro Stimulation: Yes Nerve Stimulator Range: 0.2 - 0.4 mA Blood on Needle Aspiration: No Smooth Injection of Local: Yes Pain with Injection of Local: No Prep: Chlorhexadine Needle: 21 x 100 mm Stimuplex Local: 0.25% Bupivicaine w/Clonidine 20 mcg/cc (ipack ), Ropivacaine (femoral 0.5% ropi with 8mg decadron ) Volume (cc): 50 Number of Attempts: 1 Complications: None/effective block Vitals: Vital Signs - Last 8 Hours Temp Pulse Resp BP Pulse Ox 06/12/18 13:16 10 16 109/69 97 06/12/18 13:01 68 16 122/73 99 06/12/18 12:04 97.9 F 86 18 108/68 100 06/12/18 11:38 97.9 F 86 18 108/68 100 Intake and Output 06/11/18 06/12/18 06/12/18 23:59 07:59 15:59 Other: Weight 97.522 kg Patient Weight 06/12/18 23:59 Weight 97.522 kg Comments: per dr. johnson request
[2018-06-12] MEDS ORDERED: Acetaminophen IV 1,000 MG/100 ML INFUS..BTL ONE (14:04)
--- NOTE | 2018-06-12 16:06 | Orthopedic Operative Note ---
Date of procedure: 06/12/18 Pre-op diagnosis: Infected hinge right total knee Post-op diagnosis: same Procedure: Procedure: Irrigation debridement revision femoral component to distal femoral replacement hinged total knee Estimated blood loss: 600 mL Hardware: Metal and Rajani, [place] GMRS distal femur standard right 65 mm length , 10 x 102 mm straight stem, 24 mm tibial insert with pushing components. 3 Arthrex cerclage fiber tape Findings: Patient with a 2 x 4 cm wound dehiscence no purulent drainage. Intra- Op cultures no bacteria and Gram stain. Patient's femoral component grossly loose. Tibial component well fixed. Dictation of surgery. Patient brought to the operating placed on the operating table after general anesthesia was administered the right lower extremity was prepped and draped in sterile surgical fashion patient received IV antibiotics prior skin incision. An elliptical incision was made around the open area is incision well below the bed. Resection was made through skin subcutaneous tissue, hemostasis was obtained Bovie cautery. Patient had previous patellectomy a medial parapatellar tendon approach was performed. Cultures were obtained fluid was consistent with normal joint appearing fluid. The hinge was disassembled. The knee was brought into flexion the femoral component was grossly loose rotating around the stem. Stem was well fixed. In order to remove the femoral component, the stem needs to be removed. The femur split distally approximately 6 cm a longitudinal fashion this was then split open with an osteotome and in time the femoral component and stem were removed. The bone was transected at the appropriate level and 3 Arthrex cerclage fiber tapes were passed subperiosteally around the femur to close the osteotomy. Attention was turned to the tibia and the tibia was examined and found to be well fixed. Attention was then turned back to the femur, under fluoroscopic assistance the distal femur was reamed to fit a 10 x 102 mm straight stem. The trial distal femoral component were assembled with the hinge the patient had full extension with the 24 mm Rajani. All trial components removed the knee sat for 2 minutes with an antibacterial solution. This is then irrigated out with 1 L pulse irrigation. The components were assembled on the back table the distal femur was cemented in place. It was fixated through the hinge components to the tibial component. Brought into full extension while cement hardened. The component was irrigated with an antibacterial solution. It was closed over a JESSICA drain the extensor mechanism with a running #2 PDS suture subcutaneous tissue closed deep #1 PDS suture superficially with 0 Monocryl suture skin was closed with skin mikaela. Patient placed sterile dressing postoperative brace extubated transferred to recovery in stable condition. Anesthesia: GETA Surgeon: Rogerio Toth Was there an event marketing assistant present: No Estimated blood loss (cc): 600 Condition: stable Disposition: PACU
[2018-06-12] MEDS: *HR* HYDROmorphone (PF) 1 MG/ML SYRINGE IVP PRN ×4 (16:07→16:54)
[2018-06-12 16:50] LABS: Hematocrit 40.5 % (35.3-44.9); Hemoglobin 13.1 g/dL (11.5-15.4)
--- NOTE | 2018-06-12 16:57 | Anesthesia Evaluation Post Op ---
Date of Encounter: 06/12/18 Time of Encounter: 16:56 - Vital Signs Vital Signs: Last Vital Signs Temp 98.8 F 06/12/18 16:30 Pulse 83 06/12/18 16:50 Resp 16 06/12/18 16:50 BP 104/51 06/12/18 16:50 Pulse Ox 100 06/12/18 16:50 - Lungs Lungs: Clear Ascult./Percussion - Airway Airway: Non-obstructed - Cardiovascular Regular Rate - Mental Status Mental Status: Alert & Oriented, Answers Appropriately - Pain Pain Scale: 5 Pain Scale used: Acevedo-Mary Kate (Faces) - Nausea Vomiting Nausea Vomiting: Not Present - Hydration Hydration: Tolerates oral liquids, Ice chips - Discharge PostOp Status: Transfer Patient to floor
[2018-06-12] MEDS ORDERED: Dexamethasone 4 MG/ML VIAL ONE (17:23)
[2018-06-12] MEDS ORDERED: *HR* Midazolam HCl 2 MG/2 ML VIAL ONE (17:23)
[2018-06-12] MEDS ORDERED: *HR* FentaNYL (PF) 100 MCG/2 ML VIAL ONE (17:23)
[2018-06-12] MEDS ORDERED: *HR* Propofol 200 MG/20 ML VIAL IVP ONE (17:23)
[2018-06-12] MEDS ORDERED: Ondansetron 4 MG/2 ML VIAL ONE (17:23)
[2018-06-12] MEDS ORDERED: Lidocaine -MPF 2% 2 ML VIAL ONE (17:23)
[2018-06-12] MEDS ORDERED: MOM Conc 10 ML UD.LIQ PO PRN (17:33)
[2018-06-12] MEDS ORDERED: Nitroglycerin 0.4 MG TAB.SUBL SL PRN (17:33)
[2018-06-12] MEDS ORDERED: Sennosides 8.6 MG TABLET PO PRN (17:33)
[2018-06-12] MEDS ORDERED: Ondansetron 4 MG/2 ML VIAL IVP PRN (17:33)
[2018-06-12] MEDS ORDERED: Temazepam 15 MG CAPSULE PO PRN (17:33)
[2018-06-12] MEDS ORDERED: Naloxone 0.4 MG/ML INJ IVP PRN (17:33)
[2018-06-12 19:43] LABS: BUN/Creatinine Ratio 34 (6-26); Blood Urea Nitrogen 27 mg/dL (6-20); eGFR For Non-African Americans > 60 (> 60)
[2018-06-12] MEDS: *HR* Rivaroxaban 10 MG TABLET PO SCH (21:08)
[2018-06-12] MEDS: *HR* OxyCODONE/APAP 5/325 TABLET PO PRN (21:08)
[2018-06-12] MEDS: Topiramate 100 MG TABLET PO SCH (21:11)
[2018-06-12] MEDS: Ringers Solution, Lactated 1,000 ML IVC SCH (21:17)
[2018-06-12] MEDS: *HR* OxyCODONE Immed Rel 5 MG TABLET PO PRN (21:17)
[2018-06-12] MEDS ORDERED: Vancomycin 1,000 MG VIAL IVPB SCH (23:00)
[2018-06-13 01:50] LABS: Hematocrit 28.7 % (35.3-44.9)
[2018-06-13 01:52] LABS: Hemoglobin 9.1 g/dL (11.5-15.4)
[2018-06-13 02:13] LABS: BUN/Creatinine Ratio 31 (6-26); Blood Urea Nitrogen 26 mg/dL (6-20); Calcium 8.2 mg/dL (8.6-10.3); Carbon Dioxide 21 mEq/L (23-29); Chloride 112 mEq/L (98-107); Glucose 220 mg/dL (70-105); Osmolality,Calculated 296 (280-300); Potassium 4.8 mEq/L (3.5-5.1); Sodium 137 mEq/L (136-145); eGFR For Non-African Americans > 60 (> 60)
[2018-06-13] MEDS: *HR* OxyCODONE Immed Rel 5 MG TABLET PO PRN ×5 (02:22→23:51)
--- NOTE | 2018-06-13 06:44 | Orthopedics Progress Note ---
Date of Encounter: 06/13/18 Time of Encounter: 06:43 - Assessment and Plan (1) Infection of total knee replacement Current Visit: Yes Status: Chronic Qualifiers: Encounter type: subsequent encounter Qualified Code(s): T84.59XD - Infection and inflammatory reaction due to other internal joint prosthesis, subsequent encounter; Z96.659 - Presence of unspecified artificial knee joint (2) Obesity (BMI 30.0-34.9) Current Visit: Yes Status: Chronic (3) CAD (coronary artery disease) Current Visit: No Status: Chronic Qualifiers: Coronary Disease-Associated Artery/Lesion type: [place] artery [place] vs. transplanted heart: [place] heart Associated angina: angina presence unspecified Qualified Code(s): I25.10 - Atherosclerotic heart disease of [place] coronary artery without angina pectoris (4) COPD (chronic obstructive pulmonary disease) Current Visit: No Status: Chronic Qualifiers: COPD type: unspecified COPD Qualified Code(s): J44.9 - Chronic obstructive pulmonary disease, unspecified (5) Chronic pain Current Visit: No Status: Chronic Qualifiers: Chronic pain type: other chronic pain Qualified Code(s): G89.29 - Other chronic pain (6) Factor 5 Leiden mutation, heterozygous Current Visit: No Status: Chronic (7) History of MRSA infection Current Visit: No Status: Chronic (8) Pacemaker Current Visit: No Status: Chronic (9) Seizure Current Visit: No Status: Chronic (10) 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 Afebrile vital signs stable. Operative extremity: Neurovascularly intact Dressing clean dry and intact Calves nontender Assessment and plan: Continue with postoperative care Hemoglobin 9.1 Gram stain negative JESSICA drain 120 mL no knee motion continue with drain weightbearing as tolerated Objective Vital signs: Vital Signs Temp Pulse Resp BP Pulse Ox 06/13/18 06:28 80 88/52 06/13/18 05:54 97.9 F 73 16 70/40 97 06/12/18 23:45 98.6 F 78 16 110/66 95 06/12/18 20:10 98.8 F 82 16 98/68 96 06/12/18 19:00 98.3 F 77 16 96/68 96 06/12/18 18:05 98.1 F 86 12 95/63 99 06/12/18 17:20 97.8 F 85 12 100/67 99 06/12/18 17:09 80 16 106/50 100 06/12/18 17:00 98.6 F 80 16 108/53 100 06/12/18 16:50 83 16 104/51 100 06/12/18 16:40 84 16 95/55 100 06/12/18 16:30 98.8 F 82 18 98/55 100 06/12/18 16:20 80 18 91/59 100 06/12/18 16:10 81 18 107/61 96 06/12/18 16:00 97.6 F 91 16 110/68 100 06/12/18 13:31 82 16 111/69 99 06/12/18 13:16 10 16 109/69 97 06/12/18 13:01 68 16 122/73 99 06/12/18 12:04 97.9 F 86 18 108/68 100 06/12/18 11:38 97.9 F 86 18 108/68 100 Intake and Output 06/12/18 06/12/18 06/13/18 15:59 23:59 07:59 Intake Total 50 / 50 900 / 900 Output Total 750 / 750 135 / 135 Balance 50 / 50 150 / 150 -135 / -135 Intake: IV Fluids 50 / 50 Cleocin Premix 900 MG/50 ML 900 50 / 50 mg In 50 ml @ 100 mls/hr IVPB PREOP ONE Rx#:[id number] Oral 900 / 900 Output: Estimated Blood Loss 600 / 600 Wound Drainage 150 / 150 135 / 135 Right Knee 50 / 50 135 / 135 Other: # Voids 1 Weight 97.522 kg - Labs CBC & BMP: 06/13/18 01:06 06/13/18 01:06 Labs: Abnormal lab results Hgb 9.1 g/dL (11.5-15.4) L D 06/13/18 01:06 Hct 28.7 % (35.3-44.9) L 06/13/18 01:06 Chloride 112 mEq/L (98-107) H 06/13/18 01:06 Carbon Dioxide 21 mEq/L (23-29) L 06/13/18 01:06 BUN 26 mg/dL (6-20) H 06/13/18 01:06 BUN/Creatinine Ratio 31 (6-26) H 06/13/18 01:06 Glucose 220 mg/dL (70-105) H 06/13/18 01:06 Calcium 8.2 mg/dL (8.6-10.3) L 06/13/18 01:06 - VTE Documentation of Mechanical Device: Venous foot pump, device Consult Discharge Plan - Plan Referrals: Chelo Juarez MD [Primary Care Provider] -
[2018-06-13] MEDS ORDERED: Furosemide 20 MG/2 ML VIAL IVP ONE (06:58)
[2018-06-13] MEDS: Ringers Solution, Lactated 1,000 ML IVC SCH ×2 (07:00→16:01)
[2018-06-13] MEDS: Topiramate 100 MG TABLET PO SCH ×2 (08:00→20:20)
[2018-06-13] MEDS ORDERED: 0.9 % Sodium Chloride 250 ML ONE (10:24)
[2018-06-13] MEDS: *HR* OxyCODONE/APAP 5/325 TABLET PO PRN (13:59)
--- NOTE | 2018-06-13 16:49 | Event Note ---
Date of Encounter: 06/13/18 Time of Encounter: 12:20 PCR - POD#1 s/p Irrigation debridement revision femoral component to distal femoral replacement hinged total knee 06/12/18 Patient seen at bedside, without complaints. A&O x 3 Afebrile, vital signs stable. Labs reviewed. 06/13 - H/H - 9.1/.7 Transfused 1 unit Preliminary cx results show no growth - pending decision for abx plan Drain currently has roughly 100ml bloody drainage. Per nursing note 50ml removed yesterday. Drain is to be removed on 06/15/18 by nurse.- please dress wound with 4x4 and tegaderm once removed Pain control: taking 2 tab oxycodone q 4 hrs currently with still some breakthrough pain. Discussed plan to taper down to 1 tab before discharge. Will trial lidoderm patch to help with breakthrough pain. Participating in PT. No knee ROM x 6wks, Stay in immobilzer, WBAT All questions and concerns addressed. Educated on use of incentive spirometer. Encouraged ambulation and proper hydration. Patient educated on post-operative restrictions and post-operative care. Assessment and plan: Continue with postoperative care Discharge plan: Home with HH likely 06/16/18
--- NOTE | 2018-06-13 17:00 | Physician Discharge Referral ---
<Kathie Meek - Last Filed: 06/13/18 16:58> Home Health/Hosp Referral Info Transfer to: Home Health Attending Provider: Dr. 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 (5) Acute blood loss anemia Priority: Secondary Status: Acute (6) Obesity (BMI 30.0-34.9) Priority: Secondary Status: Chronic (7) SALOME (acute kidney injury) Priority: Secondary Status: Acute (8) Anticoagulated Priority: Secondary Status: Acute (9) Arthritis of right hip Priority: Secondary Status: Acute (10) Blister of lower extremity with infection Priority: Secondary Status: Acute (11) DVT prophylaxis Priority: Secondary Status: Acute (12) Hyperkalemia Priority: Secondary Status: Acute (13) Hyponatremia Priority: Secondary Status: Acute (14) Hypotension, chronic Priority: Secondary Status: Acute (15) Painful total knee replacement Priority: Secondary Status: Acute (16) Status post total hip replacement, right Priority: Secondary Status: Acute (17) UTI (urinary tract infection) Priority: Secondary Status: Acute (18) Arrhythmia Priority: Secondary Status: Chronic (19) CAD (coronary artery disease) Priority: Secondary Status: Chronic (20) COPD (chronic obstructive pulmonary disease) Priority: Secondary Status: Chronic (21) Chronic pain Priority: Secondary Status: Chronic (22) Factor 5 Leiden mutation, heterozygous Priority: Secondary Status: Chronic (23) History of MRSA infection Priority: Secondary Status: Chronic (24) Hypokalemia Priority: Secondary Status: Chronic (25) Osteoarthritis Priority: Secondary Status: Chronic (26) Pacemaker Priority: Secondary Status: Chronic (27) Seizure Priority: Secondary Status: Chronic - Respiratory Orders Smoking Cessation: Smoking cessation has been advised. For more information, call the [place] Tobacco Quit Line at 8-668-LGQC-NOW. - Diet/Nutrition Diet/Nutrition Orders: Regular - Activity Activity Orders: Ambulate, Chair, Walker - Services Needed Following services are medically necessary services: Home Health Aide, Physical Therapy, Occupational Therapy Other Treatments: Opsite dressing, leave intact until first post-operative visit. If dressing becomes >50% saturated, contact office, remove dressing and place appropriate dressing in its place. Do not allow for dressing to get wet. Zipline/[place] in place, plan to remove at post-operative day #14-16. Total Joint Precautions x 6 weeks Apply cold therapy wrap 3-6x/day for 20 minutes at a time. Encourage ambulation throughout the day Use Incentive spirometer 10x/hour. Elevate affected extremity above heart as tolerated. Brace: Wear knee immobilizer at all times except for hygiene purposes. NO KNEE MOTION x 6 weeks. WBAT. - Transfer Medications Home Medications: Potassium Chloride [Klor-Con 10] 75 mg PO DAILY 04/07/18 [History] Rivaroxaban [Xarelto] 20 mg PO HS 04/07/18 [History] Nitroglycerin [Nitrostat] 0.4 mg SL Q5M PRN MDD X3 DOSES CALL 911 05/01/18 [ History] OxyCODONE Immed Rel [Roxicodone 5 MG] 5 mg PO Q4HR PRN 5 Days #20 tablet [Rx] Topiramate [Topamax] 200 mg PO BID 06/12/18 [History] Allergies/Adverse Reactions: 3 Allergy/AdvReac Type Severity Reaction Status Date / Time walnut Allergy Severe Difficulty Verified 06/10/18 10:59 Breathing Opioids - Morphine Analogues Allergy Itching Verified 06/10/18 10:59 cephalexin AdvReac Nausea Verified 06/10/18 10:59 codeine AdvReac Itching Verified 06/10/18 10:59 optiform AdvReac Blister Uncoded 04/07/18 08:21 Certification: Further, I certify that my clinical findings support that this patient is homebound (i.e. absences from home require considerable and taxing effort and are for medical reasons or faith services or infrequently or short duration when for other reasons) because: Homebound Reason: Post-surgery restriction and or conditions limit ability to leave home Attestation: My signature below is to certify that this patient is under my care and that I, or nurse practitioner, or a physician assistant research scientist working with me, has a face-to- face encounter with this patient. 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 For more information, call the [place] Tobacco Quit Line at 4-272-GFHDNOW. Certification: Further, I certify that my clinical findings support that this patient is homebound (i.e. absences from home require considerable and taxing effort and are for medical reasons or faith services or infrequently or short duration when for other reasons) because: Attestation: My signature below is to certify that this patient is under my care and that I, or nurse practitioner, or a physician's assistant research scientist working with me, has a face-to -face encounter with this patient.
[2018-06-13] MEDS: *HR* Rivaroxaban 10 MG TABLET PO SCH (20:21)
[2018-06-13] MEDS: traMADol 50 MG TABLET PO PRN (22:12)
[2018-06-13] MEDS: Acetaminophen IV 1,000 MG/100 ML INFUS..BTL IVPB PRN (22:56)
[2018-06-14 01:24] LABS: Hematocrit 29.3 % (35.3-44.9); Hemoglobin 9.3 g/dL (11.5-15.4)
[2018-06-14 01:43] LABS: BUN/Creatinine Ratio 27 (6-26); Blood Urea Nitrogen 24 mg/dL (6-20); Calcium 8.1 mg/dL (8.6-10.3); Carbon Dioxide 21 mEq/L (23-29); Chloride 112 mEq/L (98-107); Glucose 114 mg/dL (70-105); Osmolality,Calculated 289 (280-300); Potassium 3.7 mEq/L (3.5-5.1); Sodium 137 mEq/L (136-145); eGFR For Non-African Americans > 60 (> 60)
[2018-06-14] MEDS: *HR* OxyCODONE Immed Rel 5 MG TABLET PO PRN ×5 (03:41→21:40)
[2018-06-14] MEDS: traMADol 50 MG TABLET PO PRN ×3 (04:29→20:29)
[2018-06-14] MEDS: Acetaminophen IV 1,000 MG/100 ML INFUS..BTL IVPB PRN (05:55)
--- NOTE | 2018-06-14 07:52 | Orthopedics Progress Note ---
Date of Encounter: 06/14/18 Time of Encounter: 07:52 - Assessment and Plan (1) Infection of total knee replacement Current Visit: Yes Status: Chronic Qualifiers: Encounter type: subsequent encounter Qualified Code(s): T84.59XD - Infection and inflammatory reaction due to other internal joint prosthesis, subsequent encounter; Z96.659 - Presence of unspecified artificial knee joint (2) Obesity (BMI 30.0-34.9) Current Visit: Yes Status: Chronic (3) CAD (coronary artery disease) Current Visit: No Status: Chronic Qualifiers: Coronary Disease-Associated Artery/Lesion type: tribal artery [place] vs. transplanted heart: tribal heart Associated angina: angina presence unspecified Qualified Code(s): I25.10 - Atherosclerotic heart disease of tribal coronary artery without angina pectoris (4) COPD (chronic obstructive pulmonary disease) Current Visit: No Status: Chronic Qualifiers: COPD type: unspecified COPD Qualified Code(s): J44.9 - Chronic obstructive pulmonary disease, unspecified (5) Chronic pain Current Visit: No Status: Chronic Qualifiers: Chronic pain type: other chronic pain Qualified Code(s): G89.29 - Other chronic pain (6) Factor 5 Leiden mutation, heterozygous Current Visit: No Status: Chronic (7) History of MRSA infection Current Visit: No Status: Chronic (8) Pacemaker Current Visit: No Status: Chronic (9) Seizure Current Visit: No Status: Chronic (10) 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 Afebrile vital signs stable. Operative extremity: Neurovascularly intact Dressing clean dry and intact Calves nontender Assessment and plan: Continue with postoperative care Hemoglobin 9.3 cultures no growth to date Objective Vital signs: Vital Signs Temp Pulse Resp BP Pulse Ox 06/14/18 07:11 98.5 F 81 18 107/73 98 06/14/18 03:38 97.9 F 71 16 106/62 96 06/13/18 23:49 98.6 F 89 17 92/58 94 06/13/18 18:47 98.4 F 101 15 79/49 98 06/13/18 18:28 79/41 06/13/18 13:56 98.5 F 114 14 89/57 95 06/13/18 11:04 98.6 F 86 14 80/54 96 06/13/18 10:49 98.3 F 83 14 88/58 93 06/13/18 08:02 99 Intake and Output 06/13/18 06/13/18 06/14/18 15:59 23:59 07:59 Intake Total 1310 / 1310 100 / 100 1000 / 1000 Output Total 60 / 60 260 / 260 600 / 600 Balance 1250 / 1250 -160 / -160 400 / 400 Intake: IV Fluids 1000 / 1000 100 / 100 1000 / 1000 Lactated Ringers 1,000 ML @ 75 1000 / 1000 1000 / 1000 mls/hr IVC .[id number] BRYON Rx#: [id number] Ofirmev 1,000 mg/100 ml 1,000 100 / 100 mg In 100 ml @ 400 mls/hr IVPB Q6HR PRN Rx#:[id number] Blood Product 310 / 310 Rbcs Leuko Poor As-1 Unit 310 / 310 [id number] Output: Urine 125 / 125 600 / 600 Urine/Stool Mix 100 / 100 Wound Drainage 60 / 60 35 / 35 Right Knee 60 / 60 35 / 35 Other: Stool Size Small Stool Consistency loose Stool Color Karan Colored Romero Weight 128.3 kg - Labs CBC & BMP: 06/14/18 00:56 06/14/18 00:56 Labs: Abnormal lab results Hgb 9.3 g/dL (11.5-15.4) L 06/14/18 00:56 Hct 29.3 % (35.3-44.9) L 06/14/18 00:56 Chloride 112 mEq/L (98-107) H 06/14/18 00:56 Carbon Dioxide 21 mEq/L (23-29) L 06/14/18 00:56 BUN 24 mg/dL (6-20) H 06/14/18 00:56 BUN/Creatinine Ratio 27 (6-26) H 06/14/18 00:56 Glucose 114 mg/dL (70-105) H 06/14/18 00:56 Calcium 8.1 mg/dL (8.6-10.3) L 06/14/18 00:56 Vancomycin Trough 20 mcg/mL (5-10) H 06/14/18 00:56 - VTE Documentation of Mechanical Device: Venous foot pump, device Consult Discharge Plan - Plan Referrals: Chelo Juarez MD [Primary Care Provider] -
[2018-06-14] MEDS: Topiramate 100 MG TABLET PO SCH ×2 (09:04→20:28)
[2018-06-14] MEDS ORDERED: Aminoglycoside Consult 1 EACH MC ONE (11:33)
[2018-06-14] MEDS: *HR* Rivaroxaban 10 MG TABLET PO SCH (20:28)
[2018-06-15] MEDS: *HR* OxyCODONE Immed Rel 5 MG TABLET PO PRN ×2 (01:38→06:00)
[2018-06-15 07:28] VITALS: BP 109/72
[2018-06-15 08:17] LABS: Hematocrit 32.3 % (35.3-44.9); Hemoglobin 10.5 g/dL (11.5-15.4)
[2018-06-15] MEDS: Topiramate 100 MG TABLET PO SCH (08:22)
[2018-06-15] MEDS: traMADol 50 MG TABLET PO PRN (08:22)
[2018-06-15 08:36] LABS: BUN/Creatinine Ratio 19 (6-26); Blood Urea Nitrogen 13 mg/dL (6-20); Calcium 8.7 mg/dL (8.6-10.3); Carbon Dioxide 18 mEq/L (23-29); Chloride 113 mEq/L (98-107); Glucose 103 mg/dL (70-105); Osmolality,Calculated 286 (280-300); Potassium 3.6 mEq/L (3.5-5.1); Sodium 138 mEq/L (136-145); eGFR For Non-African Americans > 60 (> 60)
--- NOTE | 2018-06-15 09:42 | Orthopedics Progress Note ---
Date of Encounter: 06/15/18 Time of Encounter: 09:41 Subjective Interval history: Patient was seen this morning doing well without complaints. Afebrile vital signs stable. Operative extremity: Neurovascularly intact Dressing clean dry and intact Calves nontender Assessment and plan: Continue with postoperative care; Patient strongly desires discharge today. Will look into whether home care set up. Objective Vital signs: Vital Signs Temp Pulse Resp BP Pulse Ox 06/15/18 08:41 97 06/15/18 07:25 97.6 F 85 19 109/72 97 06/15/18 04:35 98.7 F 82 16 99/65 96 06/15/18 00:13 99.0 F 81 17 116/75 96 06/14/18 20:20 99.2 F 89 16 91/64 96 06/14/18 16:00 99.0 F 88 18 101/60 94 06/14/18 11:10 98.5 F 82 16 127/82 94 Intake and Output 06/14/18 06/15/18 06/15/18 23:59 07:59 15:59 Intake Total 730 / 730 250 / 250 Output Total 25 / 800 / 800 Balance 705 / 705 -550 / -550 Intake: IV Fluids 250 / 250 250 / 250 Vancocin 1,250 MG In 0.9 % 250 / 250 250 / 250 Sodium Chloride 250 ML @ 166.67 mls/hr IVPB Q12H BRYON Rx#: [id number] Oral 480 / 480 Output: Urine 800 / 800 Wound Drainage 25 / 25 Right Knee 25 / 25 Other: Meal Dinner Percent of Meal Consumed 100% # Voids 1 - Labs CBC & BMP: 06/15/18 07:58 06/15/18 07:58 Labs: Abnormal lab results Hgb 10.5 g/dL (11.5-15.4) L 06/15/18 07:58 Hct 32.3 % (35.3-44.9) L 06/15/18 07:58 Chloride 113 mEq/L (98-107) H 06/15/18 07:58 Carbon Dioxide 18 mEq/L (23-29) L 06/15/18 07:58 Vancomycin Trough 20 mcg/mL (5-10) H 06/14/18 00:56 - VTE Documentation of Mechanical Device: Venous foot pump, device Consult Discharge Plan - Plan Referrals: Chelo Juarez MD [Primary Care Provider] -
== END 2018-06-15 11:34 | disposition home health service (06) | DRG 467 ==
LOC: SAMDAY 11:16 → 3NENU 17:32
PROVIDERS: ADMIT Orthopaedic Surgery; ATTEND Orthopaedic Surgery

== ENCOUNTER 2018-07-10 06:06 | Inpatient (IN) ==
--- NOTE | 2018-07-10 06:21 | History & Physical Report ---
Date of Encounter: 07/10/18 Time of Encounter: 06:20 24 Hour HP Update - Instructions Instructions: If the History and Physical is less than 30 days old and was completed prior to A.M. admission and or procedure and has NOT been updated on calendar day of procedure please complete this update prior to performing procedure. - Update Patient reports changes in Medical Condition: No Changes in examination, assessment, or condition: No Changes in Medication: No Preop tests/diagnostics Reviewed: Yes Surgery Remains Indicated: Yes Consent for Planned Operative Procedure(s) Verified: Yes - Pre-Operative Checklist Preoperative Checklist Indicated: No Prophylactic Antibiotic Ordered: Yes Is VTE Prophylaxis Indicated?: Yes
[2018-07-10] MEDS ORDERED: *HR* Midazolam HCl 2 MG/2 ML VIAL ONE (06:35)
[2018-07-10] MEDS ORDERED: *HR* Propofol 200 MG/20 ML VIAL IVP ONE (06:35)
[2018-07-10] MEDS ORDERED: *HR* FentaNYL (PF) 100 MCG/2 ML VIAL ONE ×2 (06:35→09:29)
[2018-07-10] MEDS ORDERED: Clindamycin 900 MG/50 ML 900 MG/50 ML IV.SOLN IVPB ONE (06:39)
[2018-07-10] MEDS ORDERED: Lidocaine -MPF 4% 5 ML AMPUL ONE (06:41)
[2018-07-10] MEDS ORDERED: *HR* Rocuronium Bromide 50 MG/5 ML VIAL ONE (06:41)
[2018-07-10] MEDS ORDERED: Ondansetron 4 MG/2 ML VIAL ONE (06:41)
[2018-07-10] MEDS ORDERED: *HR* Succinylcholine 200 MG/10 ML VIAL IVP ONE (06:41)
[2018-07-10] MEDS ORDERED: Dexamethasone 4 MG/ML VIAL ONE (06:41)
[2018-07-10] MEDS ORDERED: Lidocaine -MPF 2% 2 ML VIAL ONE (06:41)
[2018-07-10] MEDS ORDERED: Albuterol 2.5 MG/3 ML NEBULIZER IH ONE (06:42)
[2018-07-10] MEDS ORDERED: Ringers Solution, Lactated 1,000 ML IVC SCH (06:45)
[2018-07-10] MEDS ORDERED: Neostigmine Methylsulfate 3 MG/3 ML SYRINGE ONE (06:57)
[2018-07-10] MEDS ORDERED: Acetaminophen IV 1,000 MG/100 ML INFUS..BTL IVPB ONE (07:34)
[2018-07-10] MEDS ORDERED: Scopolamine Patch 1.5 MG PATCH.TD72 TD ONE (07:35)
[2018-07-10] MEDS ORDERED: Famotidine 20 MG/2 ML VIAL IVP ONE (07:35)
[2018-07-10] MEDS ORDERED: Pregabalin 75 MG CAPSULE PO ONE (07:35)
[2018-07-10] MEDS ORDERED: ROPIVACAINE HCL/PF 0.5% 30 ML VIAL ONE ×2 (07:37→08:01)
--- NOTE | 2018-07-10 07:38 | Anesthesia Evaluation PreOp ---
Date of Encounter: 07/10/18 Time of Encounter: 07:36 - Past History Planned Operation: R-AKA, Removal R-knee prosthesis Cardiac History: AK (07/25/2015 "stress releated", NO PCI required), Arrhythmia ( s/p Cardiac ablations x 2), Cardiac Stent (stents x2 [2000]), Pacemaker/ICD ( implanted 04/2013) Pulmonary History: COPD (Hx Sarcoidosis), Other (partial R-lung lobectomy) LOOP CUTTER History: Seizures (last Sz 3 yrs ago), Other (Anxiety/depression) Other Medical History: Renal (kidney stones s/p stent placements), Bleeding ( Factor V Leiden w/Hx DVT s/p [place] filter & anticoagulated on Xarelto [off x 5 days]), Other (Hx MRSA re: Brown Recluse Spider Bite 2009) Anesthesia History: No Prior Anesthetic Complications, Past Anesthesia (R-TKR x 5, L-TKR, [Both with multiple revisions]. Gastric bypass, Michael Filter 2002 , Appy, Isabella, Hernia repair, SANDIE/BSO, T*A) Alcohol Use: none, occasionally Drug use: none Medications and Allergies Rivaroxaban [Xarelto] 20 mg PO HS 04/07/18 [History] Nitroglycerin [Nitrostat] 0.4 mg SL Q5M PRN MDD X3 DOSES CALL 911 05/01/18 [ History] Topiramate [Topamax] 200 mg PO BID 06/12/18 [History] Albuterol Sulfate [Proventil Hfa] 6.7 gm IH PRN PRN 07/10/18 [History] Cyclobenzaprine HCl 5 mg PO DAILY 07/10/18 [History] Duloxetine HCl [Cymbalta] 30 mg PO BID 07/10/18 [History] Gabapentin [Neurontin] 300 mg PO TID 07/10/18 [History] OxyCODONE/APAP 7.5/325 [Percocet 7.5/325 MG] 1 each PO Q8HR PRN 07/10/18 [ History] Topiramate [Topamax] 200 mg PO 07/10/18 [History] 3 Allergy/AdvReac Type Severity Reaction Status Date / Time walnut Allergy Severe Difficulty Verified 06/10/18 10:59 Breathing Opioids - Morphine Analogues Allergy Itching Verified 06/10/18 10:59 cephalexin AdvReac Nausea Verified 06/10/18 10:59 codeine AdvReac Itching Verified 06/10/18 10:59 optiform AdvReac Blister Uncoded 04/07/18 08:21 - Meds/Allergy Pre-op Review Medications Reviewed: Yes Allergies Reviewed: Yes Anesthesia Results - Imaging EKG: report reviewed Additional studies: ECHO 07/2017 EV/EV echocardiogram Impressions: LVEF 60%. Normal LV systolic function with regional variation (see Diagram below). Mild left ventricular diastolic dysfunction. Normal right ventricular structure and function. Mild chordal MARISOL without LVOTO. Mild tricuspid regurgitation. No pulmonary hypertension. 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 All other wall segments showed normal motion. Anesthesia Exam O2 Sat Height 1.7 m Height 1.7 m Weight 96.162 kg Weight 96.162 kg O2 Sat by Pulse Oximetry 99 O2 Sat by Pulse Oximetry 99 Vital Signs Temp Pulse Resp BP Pulse Ox 98.4 F 83 18 115/70 99 07/10/18 06:29 07/10/18 06:29 07/10/18 06:29 07/10/18 06:29 07/10/18 06:29 Height: 5'7" Weight: 212# BMI = 33 NPO (# of Hours): MNoc - HEENT Pupil (Motor): Pupils equal, EOMI Mallampati: II Teeth: Missing, Edentulous (upper) Denture Type: Upper: Complete Oral Opening: Greater than 3 - LOOP CUTTER LOC: Oriented LOOP CUTTER Motor: Normal RUE, Normal LUE, Normal RLE, Normal LLE, Normal Face LOOP CUTTER Sensory: Normal: RUE, LUE, RLE, LLE, Face - Cardiac Rhythm: Regular Murmur: None - Pulmonary Breath Sounds: bilateral Clear Respiratory Effort: Symmetrical Anesthesia Assess/Plan ASA Score: 3 (Factor V Leiden, Anxiety/depression, Sarcoidosis, CAD, Seizure disorder) Modified Shakira Scale for Level of Consciousness: Cooperative, oriented, and tranquil Anesthetic Plan: General, Regional Monitoring Plan: Standard Monitors Recovery Plan: PACU Anes Supervising Prov Stmt: PT seen/evaluated, R&B Discussed, questions answered and consent obtained. Angel Higginbotham MD
[2018-07-10] MEDS ORDERED: Tetracaine/PF 20 MG/2 ML AMPUL ONE (07:58)
--- NOTE | 2018-07-10 08:48 | Anesthesia Procedures ---
Date of Encounter: 07/10/18 Time of Encounter: 08:00 Procedures: Anesthesia - Nerve Block Procedure Date: 07/10/18 Time: 08:00 Allergies/Adv Reactions: [place] Morphine Analogues Cephalexin Codeine Optiform Pre-op Diagnosis: Right Total Knee IOnfection Surgical Procedure: Removal of Right Total Knee Arthroplasty and Right AKA Checklist: Correct Patient Identifier, Correct procedure, History checked Correct side: Right Blood Thinner: Yes (Off for 5 days) Monitor Applied: EKG, BP, Pulse Oximetry Supplemental Oxygen via Nasal Cannula (L/min): 2 Sedation: Versed (mg): 2 Sedation: Fentanyl (mcg): 100 Indication: Post Op Analgesia Pre-op Neuro Deficits: No Block Type: Femoral, Sciatic Catheter placed: No Sterile Technique: No Ultrasound used: Yes Anatomy identified: Yes Visual spread of Local: Yes Neuro Stimulation: Yes Nerve Stimulator Range: >0.4 - 0.6 mA Blood on Needle Aspiration: No Smooth Injection of Local: Yes Pain with Injection of Local: No Prep: Chlorhexadine Needle: 22 x 50 mm Stimuplex (Pajunk echogenic for Femoral Nerve), 21 x 100 mm Stimuplex (Pajunk for sciatic) Local: Tetracaine (1% 10 mg used in combo with ropivicaine for FNB), Ropivacaine (0.5% 20 ml with Decadron 8 mg for FNB; .5% 30 ml used for Sciatic NB) Volume (cc): 51ml LA Number of Attempts: 1 Complications: None/effective block Vitals: VSS throughout procedure Comments: Pt tolerated procedure well. comfortable throughout
[2018-07-10] MEDS ORDERED: *HR* HYDROmorphone (PF) 1 MG/ML SYRINGE IVP PRN (09:02)
[2018-07-10] MEDS ORDERED: *HR* Promethazine 25 MG/ML VIAL IVP PRN (09:02)
[2018-07-10] MEDS ORDERED: Albuterol 2.5 MG/3 ML NEBULIZER IH PRN (09:02)
[2018-07-10] MEDS ORDERED: *HR* OxyCODONE Immed Rel 5 MG TABLET PO PRN (09:02)
[2018-07-10] MEDS ORDERED: *HR* PHENYLEPHRINE 1,000 MCG/10 ML SYRINGE IVP ONE (09:43)
--- NOTE | 2018-07-10 09:54 | Orthopedic Operative Note ---
Date of procedure: 07/10/18 Pre-op diagnosis: Recurrent infection right total knee status post multiple revisions Post-op diagnosis: same Procedure: Procedure: Removal of femoral component right hinged total knee Estimated blood loss: Estimated blood loss for this portion of the procedure 10 mL Procedure: Patient already in the middle of her surgical procedure by Dr. Childress who was preparing the flaps for the above-knee amputation. Once he had finished with his initial portion of the case, I scrubbed in to remove the femoral prosthesis. A midline incision was made distal to his transverse incision through the old incision, the incision was made through the skin and subcutaneous tissue hemostasis was obtained with Bovie cautery. A medial parapatellar tendon approach was performed exposing the femoral component, there was no pus identified within the joint. Patient had a large open wound that was prepped out of the surgical field. This was distal to the component. The locking mechanism was removed and the hinge mechanism was removed. The femoral component was then removed without incident. Cerclage cables were cut and removed as well. At this point time I left the procedure, and Dr. Childress scrubbed back in. I went to the family gave them an update. Anesthesia: GETA Surgeon: Rogerio Toth Was there an orthotics prosthetics assistant present: No Estimated blood loss (cc): 15 Condition: stable Disposition: other (patient still in procedure with Dr. Childress)
--- NOTE | 2018-07-10 10:18 | Operative Note ---
Date of procedure: 07/10/18 Pre-op diagnosis: Infected right total knee, recurrent Post-op diagnosis: same Procedure: Right above-knee amputation Anesthesia: GETA Surgeon: Sandoval Childress Was there an financial planning assistant present: Yes Receiving Inspector: Paula Quiroga Estimated blood loss (cc): 150 Specimen: Right above-knee amputation Condition: stable Disposition: PACU Procedure in Detail: After informed consent the patients taking major operating suite placed supine position given adequate general endotracheal anesthesia. Timeout was taken with and Dr. Childress in the room. The right leg was prepped and draped in sterile fashion utilizing Betadine solution standard techniques. Class 4 infected right total knee prosthesis. The lateralizing manish was identified. I assumed responsibility for the patient and traced the anterior and posterior flaps. The skin was divided. The anterior musculature was divided with electrocautery. I dissected all the way down to the periosteum. I divided the medial and lateral muscular bundles. Hamstrings were divided. I isolated the sciatic nerve and this was high ligated with 2 ligations of 0 silk. The superficial femoral artery and vein were identified and clamped and high ligated. I was then able to perform a circumferential dissection of the femur just above the previously placed cable. Electrocautery was used for hemostasis total blood loss was about 150 mL. Responsibility for removing the prosthesis was then turned over to Dr. Toth. At the conclusion of Dr. Toth's Portion of the case which is documented in a separate operative note, I assumed full responsibility for the patient and made a circumferential dissection on the femur at the appropriate level. This is divided with a oscillating saw. Presence of cement made the division somewhat difficult but the femur was solid with no spurs were sharp edges. I irrigated the amputation site with copious amounts of antibiotic containing solution the wound was closed in multiple layers using 0 Vicryl on the muscular layers and 2- 0 Vicryl and subcutaneous layers. She tolerated the procedure well and was transferred to recovery in stable condition.
[2018-07-10] MEDS ORDERED: Ketorolac 30 MG/ML VIAL IVP ONE (11:05)
--- NOTE | 2018-07-10 15:04 | Anesthesia Evaluation Post Op ---
Date of Encounter: 07/10/18 Time of Encounter: 11:05 - Vital Signs Vital Signs: Vital Signs Temp Pulse Resp BP Pulse Ox 07/10/18 13:15 98.1 F 82 17 96/61 97 07/10/18 12:45 98.1 F 88 17 97/58 97 07/10/18 12:15 98.4 F 77 16 98/64 93 07/10/18 11:45 98.5 F 78 16 81/50 93 07/10/18 11:28 86 16 100/59 93 07/10/18 11:20 84 16 106/62 94 07/10/18 11:10 83 16 98/52 95 07/10/18 11:00 97.6 F 85 18 94/57 92 07/10/18 10:50 90 18 98/59 94 07/10/18 10:40 88 16 104/62 97 07/10/18 10:30 97.8 F 89 16 99/59 100 07/10/18 08:10 86 12 101/62 100 07/10/18 06:49 18 115/70 99 07/10/18 06:29 98.4 F 83 18 115/70 99 Patient Weight 07/10/18 23:59 Weight 96.162 kg - Lungs Lungs: Clear Ascult./Percussion - Airway Airway: Non-obstructed - Cardiovascular Regular Rate - Mental Status Mental Status: Asleep with brisk response to light stimulation - Pain Pain Scale: 0 Pain Scale used: Numeric (1 - 10) - Nausea Vomiting Nausea Vomiting: Not Present - Hydration Hydration: Tolerates oral liquids, Able to void - Discharge PostOp Status: Transfer Patient to floor Anes Supervising Prov Stmt: Pt seen/evaluated, VSS And pt has met criteria for discharge to floor. - MD Anahy
[2018-07-10] MEDS: Ringers Solution, Lactated 1,000 ML IVC SCH (15:06)
[2018-07-10] MEDS: Clindamycin 900 MG/50 ML 900 MG/50 ML IV.SOLN IVPB SCH (15:07)
[2018-07-10] MEDS: Gabapentin 300 MG CAPSULE PO SCH ×2 (15:07→21:57)
[2018-07-10] MEDS ORDERED: *HR* Heparin 5,000 UNIT/ML VIAL SQ SCH (18:00)
[2018-07-10] MEDS: *HR* OxyCODONE/APAP 5/325 TABLET PO PRN (21:57)
[2018-07-11] MEDS: Clindamycin 900 MG/50 ML 900 MG/50 ML IV.SOLN IVPB SCH (00:43)
[2018-07-11 04:25] LABS: Basophils % 0.3 %; Eosinophils % 0.6 %; Hematocrit 27.2 % (35.3-44.9); Hemoglobin 8.6 g/dL (11.5-15.4); Immature Granulocytes % 0.2 % (0-4); Lymphocytes # 1.7 K/mcL (0.6-4.6); Lymphocytes % 26.8 %; Mean Corpuscular HGB Conc 31.6 g/dL (31.6-35.5); Mean Corpuscular Hemoglobin 31.3 pg (28.0-33.3); Mean Corpuscular Volume 98.9 fL (83.0-100.0); Mean Platelet Volume 9.1 fL (9.4-12.4); Monocytes # 0.5 K/mcL (0.0-1.3); Monocytes % 8.4 %; Neutrophils # 3.9 K/mcL (1.6-8.9); Platelet Count 142 K/mcL (140-400); Red Blood Count 2.75 M/mcL (3.82-4.97); Red Cell Distribution Width 13.2 % (11.5-14.5); Segmented Neutrophils % 63.7 %
[2018-07-11 04:39] LABS: BUN/Creatinine Ratio 21 (6-26); Blood Urea Nitrogen 21 mg/dL (6-20); Calcium 8.1 mg/dL (8.6-10.3); Carbon Dioxide 21 mEq/L (23-29); Chloride 116 mEq/L (98-107); Glucose 100 mg/dL (70-105); Osmolality,Calculated 295 (280-300); Potassium 3.9 mEq/L (3.5-5.1); Sodium 141 mEq/L (136-145); eGFR For Non-African Americans 57 (> 60)
[2018-07-11] MEDS: OXYCODONE Oral CONC 10 MG/0.5 ML ORAL.SYG SL PRN ×4 (06:11→21:58)
[2018-07-11] MEDS: *HR* OxyCODONE/APAP 5/325 TABLET PO PRN ×3 (08:14→18:01)
[2018-07-11] MEDS: Gabapentin 300 MG CAPSULE PO SCH ×3 (08:14→21:58)
[2018-07-11] MEDS: Ringers Solution, Lactated 1,000 ML IVC SCH ×2 (08:15→21:58)
--- NOTE | 2018-07-11 08:54 | General Surgery Progress Note ---
<Mason Aldana R - Last Filed: 07/11/18 12:28> Date of Encounter: 07/11/18 Time of Encounter: 07:45 - Assessment and Plan (1) Above knee amputation of right lower extremity Current Visit: Yes Status: Acute POD #1 s/p AKA right RLE with Elio Childress and Navneet on 07/10/2018 Patient continues to refuse rehab plan: PT/OT and manager social media consults this am D/C villalta today Comfort care and pain management Daily wound care Incentive spirometry (2) DVT prophylaxis Current Visit: Yes Status: Acute History of DVT and PE Patient does have leti filter Will start BID 5000 units SQ heparin, may resume xarelto at discharge Subjective Patient reports: no new complaints, still having pain, pain is less, tolerating a regular diet, flatus, no bowel movement, afebrile Narrative: Patient reports post-operative pain is controlled. Tolerating regular diet without nausea or vomiting. Objective Vital Signs - Last 8 Hours Temp Pulse Resp BP Pulse Ox 07/11/18 08:01 98 F 80 16 111/70 95 07/11/18 03:10 97.3 F L 71 14 91/58 96 Intake and Output 07/10/18 07/11/18 07/11/18 23:59 07:59 15:59 Intake Total 750 / 750 1000 / 1000 240 / 240 Output Total 1350 / 1350 0 / 0 350 / 350 Balance -600 / -600 1000 / 1000 -110 / -110 Intake: IV Fluids 50 / 50 1000 / 1000 Lactated Ringers 1,000 ML @ 75 1000 / 1000 mls/hr IVC .[id number] BRYON Rx#: [id number] Cleocin Premix 900 MG/50 ML 900 50 / 50 mg In 50 ml @ 50 mls/hr IVPB Q8HR BRYON Rx#:[id number] Oral 700 / 700 0 / 0 240 / 240 Output: Catheter 1350 / 1350 0 / 0 350 / 350 Other: # Bowel Movements 0 0 Weight 97.9 kg - General physical appearance well developed, well nourished, no distress, obese - Eyes PERRL, normal ocular movement - ENT normal mucosa, atraumatic, normocephalic - Neck Neck exam: trachea midline, no venous distension - Respiratory normal expansion, normal respiratory effort, clear to auscultation - Cardiovascular Cardiovascular exam: Present: RRR - Abdomen Abdomen: Present: bowel sounds present, soft, non tender - Integumentary no rash - Neurologic CN 2-12 grossly intact - Musculoskeletal normal posture, other (clean and dry dressing to RLE stump. Incision intact and nonerythematous) - Psychiatric oriented to time, oriented to person, oriented to place, speech is normal - Labs 07/11/18 03:53 07/11/18 03:53 Diabetes panel 07/11/18 Range/Units 03:53 Sodium 141 (136-145) mEq/L Potassium 3.9 (3.5-5.1) mEq/L Chloride 116 H (98-107) mEq/L Carbon Dioxide 21 L (23-29) mEq/L BUN 21 H (6-20) mg/dL Creatinine 1.02 (0.60-1.20) mg/dL Glucose 100 (70-105) mg/dL Calcium 8.1 L (8.6-10.3) mg/dL Calcium panel 07/11/18 Range/Units 03:53 Calcium 8.1 L (8.6-10.3) mg/dL Pituitary panel 07/11/18 Range/Units 03:53 Sodium 141 (136-145) mEq/L Potassium 3.9 (3.5-5.1) mEq/L Chloride 116 H (98-107) mEq/L Carbon Dioxide 21 L (23-29) mEq/L BUN 21 H (6-20) mg/dL Creatinine 1.02 (0.60-1.20) mg/dL Glucose 100 (70-105) mg/dL Calcium 8.1 L (8.6-10.3) mg/dL Adrenal panel 07/11/18 Range/Units 03:53 Sodium 141 (136-145) mEq/L Potassium 3.9 (3.5-5.1) mEq/L Chloride 116 H (98-107) mEq/L Carbon Dioxide 21 L (23-29) mEq/L BUN 21 H (6-20) mg/dL Creatinine 1.02 (0.60-1.20) mg/dL Glucose 100 (70-105) mg/dL Calcium 8.1 L (8.6-10.3) mg/dL Consult Discharge Plan - Plan Instructions: Above the Knee Amputation (DC) Additional Instructions: General Surgical Discharge Instructions 1. No pushing, pulling, or lifting greater than 15 lbs for 2-4 weeks (depending upon procedure). 2. You may shower beginning today, but no tub baths, soaking, or swimming for 2 weeks. 3. You may resume driving when you are off narcotics and are safe to react in a car. 4. Take ibuprofen every 8 hours for discomfort. If this does not relieve discomfort, you may take the as needed Percocet. Take narcotics as directed. Do not take more narcotics then directed and do not share your narcotics with any other person. Do not drink alcohol while on narcotics. 5. Take stool softeners (Colace) or a water based laxative (Miralax) while taking narcotics. You may hold for loose stools. 6. Report any fevers greater than 100.5F, increase abdominal discomfort, drainage that looks like pus, increased redness or pain at the surgical site, or any vomiting. 7. Report any pain in the calves, shortness of breath, or rapid heartbeat. 8. Follow-up in the office as directed. 9. If you were prescribed antibiotics, do not stop them without talking to your provider. Referrals: Sandoval Childress MD [Partnered Physician] - 07/25/18 12:25 pm Chelo Juarez MD [Primary Care Provider] - Prescriptions: OxyCODONE/APAP 5/325 [Percocet 5/325 MG] 1 each PO Q6HR PRN 6 Days #21 tablet PRN Reason: Breakthrough Pain Docusate [Colace] 100 mg PO BID #30 capsule <Sandoval Childress - Last Filed: 07/14/18 08:39> Date of Encounter: 07/11/18 Objective Vital Signs - Last 8 Hours Temp Pulse Resp BP Pulse Ox 07/14/18 08:16 98.0 F 77 14 105/62 95 07/14/18 02:52 98.6 F 81 16 110/70 95 Intake and Output 07/13/18 07/14/18 07/14/18 23:59 07:59 15:59 Intake Total 240 / 240 0 / 0 Output Total 0 / 0 Balance 240 / 240 0 / 0 Intake: Oral 240 / 240 0 / 0 Output: Urine 0 / 0 Other: Meal Dinner Percent of Meal Consumed 100% Weight 97.5 kg Patient Weight 07/14/18 23:59 Weight 97.5 kg - Labs 07/12/18 04:04 07/12/18 04:04 - Attending Attestation I examined this patient and my medical decision-making was reviewed with the Resident Physician. I agree with the documented findings, disposition and treatment plan as described except to the extent set forth below. The patient is seen and evaluated on morning rounds with resident. She refuses inpatient rehabilitation. We will have her work with occupational therapy and physical therapy over the weekend. I will encourage her to reconsider inpatient rehabilitation after above-knee amputation. She has had a 75% reduction in her pain. I am very pleased with her overall clinical course Sandoval Childress MD FACS
[2018-07-11] MEDS ORDERED: Acetaminophen 325 MG TABLET PO PRN (11:21)
[2018-07-11] MEDS: *HR* Heparin 5,000 UNIT/ML VIAL SQ SCH ×2 (11:59→18:01)
[2018-07-11] MEDS: Pantoprazole 40 MG VIAL IVP SCH (11:59)
[2018-07-11] MEDS: Ketorolac 15 MG/ML VIAL IVP SCH ×2 (15:19→18:08)
[2018-07-12] MEDS: Ketorolac 15 MG/ML VIAL IVP SCH ×5 (00:19→23:36)
[2018-07-12] MEDS: OXYCODONE Oral CONC 10 MG/0.5 ML ORAL.SYG SL PRN ×2 (04:15→08:58)
[2018-07-12 04:45] LABS: Basophils % 0.4 %; Eosinophils # 0.2 K/mcL (0.0-0.6); Eosinophils % 3.6 %; Hematocrit 29.1 % (35.3-44.9); Hemoglobin 9.3 g/dL (11.5-15.4); Immature Granulocytes % 0.4 % (0-4); Lymphocytes # 1.3 K/mcL (0.6-4.6); Mean Corpuscular Hemoglobin 31.5 pg (28.0-33.3); Mean Corpuscular Volume 98.6 fL (83.0-100.0); Mean Platelet Volume 8.9 fL (9.4-12.4); Monocytes # 0.4 K/mcL (0.0-1.3); Monocytes % 6.6 %; Neutrophils # 3.7 K/mcL (1.6-8.9); Platelet Count 132 K/mcL (140-400); Red Blood Count 2.95 M/mcL (3.82-4.97)
[2018-07-12 05:03] LABS: BUN/Creatinine Ratio 22 (6-26); Blood Urea Nitrogen 19 mg/dL (6-20); Calcium 8.4 mg/dL (8.6-10.3); Carbon Dioxide 22 mEq/L (23-29); Chloride 111 mEq/L (98-107); Glucose 90 mg/dL (70-105); Osmolality,Calculated 288 (280-300); Potassium 4.3 mEq/L (3.5-5.1); Sodium 138 mEq/L (136-145); eGFR For Non-African Americans > 60 (> 60)
[2018-07-12] MEDS: *HR* Heparin 5,000 UNIT/ML VIAL SQ SCH ×2 (06:18→17:13)
[2018-07-12] MEDS: Gabapentin 300 MG CAPSULE PO SCH ×3 (08:57→20:46)
[2018-07-12] MEDS: Pantoprazole 40 MG VIAL IVP SCH (08:58)
[2018-07-12] MEDS: Ringers Solution, Lactated 1,000 ML IVC SCH (12:12)
[2018-07-12] MEDS: *HR* OxyCODONE/APAP 5/325 TABLET PO PRN ×2 (13:48→21:50)
[2018-07-13] MEDS: *HR* OxyCODONE/APAP 5/325 TABLET PO PRN ×2 (02:05→18:47)
[2018-07-13] MEDS: Ketorolac 15 MG/ML VIAL IVP SCH ×4 (05:41→23:41)
[2018-07-13] MEDS: *HR* Heparin 5,000 UNIT/ML VIAL SQ SCH ×2 (05:41→17:32)
[2018-07-13] MEDS: Pantoprazole 40 MG VIAL IVP SCH (08:44)
[2018-07-13] MEDS: Gabapentin 300 MG CAPSULE PO SCH ×3 (08:44→21:20)
--- NOTE | 2018-07-13 12:31 | General Surgery Progress Note ---
Date of Encounter: 07/12/18 Time of Encounter: 11:45 - Assessment and Plan (1) Status post amputation of lower extremity Current Visit: Yes Status: Acute Plan for PT/OT for ambulation/transfer training. (2) Painful total knee replacement Current Visit: No Status: Acute Qualifiers: Encounter type: subsequent encounter Qualified Code(s): T84.84XD - Pain due to internal orthopedic prosthetic devices, implants and grafts, subsequent encounter; Z96.651 - Presence of right artificial knee joint Subjective Patient reports: feels better, pain is less Objective Vital Signs - Last 8 Hours Temp Pulse Resp BP Pulse Ox 07/13/18 10:56 98.2 F 84 16 110/74 95 07/13/18 08:55 95 07/13/18 04:39 97.4 F L 81 17 105/65 95 Intake and Output 07/12/18 07/13/18 07/13/18 23:59 07:59 15:59 Intake Total 720 / 720 2049 Output Total 900 / 900 600 / 600 0 / 0 Balance -180 / -180 -600 / -600 2049 Intake: IV Fluids 2049 Oral 720 / 720 Output: Urine 900 / 900 0 / 0 Urine/Stool Mix 600 / 600 Other: Meal Dinner Breakfast Percent of Meal Consumed 100% 100% Weight 98 kg Patient Weight 07/13/18 23:59 Weight 98 kg - General physical appearance well developed, well nourished, no distress - ENT normal mucosa - Neck Neck exam: trachea midline - Respiratory normal expansion - Cardiovascular Cardiovascular exam: Present: RRR - Abdomen Abdomen: Present: bowel sounds present, soft - Incision Incision: Present: clean and dry - Neurologic CN 2-12 grossly intact - Labs 07/12/18 04:04 07/12/18 04:04 Consult Discharge Plan - Plan Referrals: Sandoval Childress MD [Partnered Physician] - 07/25/18 12:25 pm Chelo Juarez MD [Primary Care Provider] -
--- NOTE | 2018-07-13 12:52 | General Surgery Progress Note ---
Date of Encounter: 07/13/18 Time of Encounter: 12:51 - Assessment and Plan (1) Status post amputation of lower extremity Current Visit: Yes Status: Acute Plan for PT/OT for ambulation/transfer training. (2) Painful total knee replacement Current Visit: No Status: Acute Qualifiers: Encounter type: subsequent encounter Qualified Code(s): T84.84XD - Pain due to internal orthopedic prosthetic devices, implants and grafts, subsequent encounter; Z96.651 - Presence of right artificial knee joint Subjective Patient reports: no new complaints Objective Vital Signs - Last 8 Hours Temp Pulse Resp BP Pulse Ox 07/13/18 10:56 98.2 F 84 16 110/74 95 07/13/18 08:55 95 Intake and Output 07/12/18 07/13/18 07/13/18 23:59 07:59 15:59 Intake Total 720 / 720 2049 Output Total 900 / 900 600 / 600 350 / 350 Balance -180 / -180 -600 / -600 1700 / 1700 Intake: IV Fluids 2049 Oral 720 / 720 Output: Urine 900 / 900 350 / 350 Urine/Stool Mix 600 / 600 Other: Meal Dinner Breakfast Percent of Meal Consumed 100% 100% Weight 98 kg Patient Weight 07/13/18 23:59 Weight 98 kg - General physical appearance well developed, well nourished, no distress - ENT normal mucosa - Neck Neck exam: trachea midline - Respiratory normal expansion - Cardiovascular Cardiovascular exam: Present: RRR - Abdomen Abdomen: Present: soft - Incision Incision: Present: clean and dry - Neurologic CN 2-12 grossly intact - Labs 07/12/18 04:04 07/12/18 04:04 Consult Discharge Plan - Plan Referrals: Sandoval Childress MD [Partnered Physician] - 07/25/18 12:25 pm Chelo Juarez MD [Primary Care Provider] -
[2018-07-14] MEDS: *HR* OxyCODONE/APAP 5/325 TABLET PO PRN ×2 (02:52→09:02)
[2018-07-14] MEDS: *HR* Heparin 5,000 UNIT/ML VIAL SQ SCH (06:56)
[2018-07-14] MEDS: Ketorolac 15 MG/ML VIAL IVP SCH (06:56)
--- NOTE | 2018-07-14 07:57 | Discharge Summary ---
<Mason Aldana R - Last Filed: 07/14/18 11:15> Orders not resulted at time of discharge: Pending orders 07/10/18 08:11 US anesthesia pain block [US] Stat 07/10/18 10:37 Surgical Pathology [PTH] Routine Date of Encounter: 07/14/18 Time of Encounter: 07:20 - Discharge Diagnosis (1) Above knee amputation of right lower extremity Priority: Primary Status: Acute (2) DVT prophylaxis Priority: Secondary Status: Acute General Surgery Exam Initial Vital Signs Temp Pulse Resp BP Pulse Ox 98.4 F 83 18 115/70 99 07/10/18 06:29 07/10/18 06:29 07/10/18 06:29 07/10/18 06:29 07/10/18 06:29 - General physical appearance well developed, well nourished, no distress - Eyes PERRL, normal ocular movement - ENT normal mucosa, atraumatic, normocephalic - Neck trachea midline, no venous distension - Respiratory normal expansion, normal respiratory effort, clear to auscultation - Cardiovascular Cardiovascular exam: Present: RRR - Abdomen Abdomen general surgery: Present: bowel sounds present, soft, non tender - Integumentary Integumentary general surgery: Present: warm and dry, other (Right AKA stump incision is clean and dry, surgical mikaela in place and intact, no erythema or drainage) - Neurologic Present: CN 2-12 grossly intact - Musculoskeletal Present: normal posture, other (s/p right AKA) - Psychiatric Psychiatric general surgery: Present: A&Ox3, speech is normal, memory intact - Hospital Course Hospital course: Ms. Haley is a 52 year old female with a history of right total knee arthroplasty and revision surgery with infection. Patient has been struggling with wound and hardware infections. Informed consent was obtained for AKA with Patricia Toth and [place]. Patient was taken to OR on 07/10/2018 for AKA. Patient tolerated the procedure well. Hospital course has been uncomplicated. Has achieved adequate postoperative pain and hemodynamic control. Has been working with PT/OT, and continues to decline inpatient rehab, which has been recommended to the patient by the surgical and PT/OT teams. Tolerating regular diet without nausea or vomiting. Vital signs within normal limits and stable, afebrile. Patient is anticipated for discharge this afternoon. Social work consulted and patient will receive home health care and physical therapy. Will follow up with Dr. Childress in clinic on 07/25/2018 at 12:25 pm. Pathology of the surgical specimen is pending at this time. - Time Spent with Patient Total time spent providing and/or coordinating discharge services: - Discharge Medications Prescriptions: OxyCODONE/APAP 5/325 [Percocet 5/325 MG] 1 each PO Q6HR PRN 6 Days #21 tablet PRN Reason: Breakthrough Pain Docusate [Colace] 100 mg PO BID #30 capsule Home Medications: Rivaroxaban [Xarelto] 20 mg PO HS 04/07/18 [History] Nitroglycerin [Nitrostat] 0.4 mg SL Q5M PRN MDD X3 DOSES CALL 911 05/01/18 [ History] Topiramate [Topamax] 200 mg PO BID 06/12/18 [History] Cyclobenzaprine HCl 5 mg PO DAILY 07/10/18 [History] Duloxetine HCl [Cymbalta] 30 mg PO BID 07/10/18 [History] Gabapentin [Neurontin] 600 mg PO QAM 07/10/18 [History] Gabapentin [Neurontin] 600 mg PO QPM 07/10/18 [History] Gabapentin [Neurontin] 900 mg PO HS 07/10/18 [History] OxyCODONE/APAP 5/325 [Percocet 5/325 MG] 1 each PO BID PRN 07/10/18 [History] Potassium Chloride [Klor-Con 10] 10 meq PO DAILY 07/10/18 [History] Pramipexole [Mirapex] 0.25 mg PO QAM 07/10/18 [History] Pravastatin Sodium [Pravachol] 20 mg PO DAILY 07/10/18 [History] Docusate [Colace] 100 mg PO BID #30 capsule 07/14/18 [Rx] OxyCODONE/APAP 5/325 [Percocet 5/325 MG] 1 each PO Q6HR PRN 6 Days #21 tablet [Rx] Allergies/Adverse Reactions: 3 Allergy/AdvReac Type Severity Reaction Status Date / Time walnut Allergy Severe Difficulty Verified 07/10/18 17:51 Breathing cephalexin AdvReac Nausea Verified 07/10/18 17:51 codeine AdvReac Itching Verified 07/10/18 17:51 optiform AdvReac Blister Uncoded 07/10/18 17:51 Date of admission: 07/10/18 11:35 Primary care physician: Chelo Juarez MD Consults: 07/11/18 08:05 Consult to Occupational Therapy [CONS] Routine Comment: Evaluate, develop and implement POC Reason for Consult: OT, mobilization and discharge planning Does patient have active BEDREST order?: No Is patient medically & hemodynamically stable?: Yes Consult to Physical Therapy [CONS] Routine Comment: Evaluate, develop and implement POC Reason for Consult: PT Daily, mobilization and discharge planning, Please continue PT over the weekend Does patient have active BEDREST order?: No Is patient medically & hemodynamically stable?: Yes Consult to Motor Vehicles Inspector [CONS] Routine Reason for SW Consult: discharge planning Discharging clinician: Mason Aldana Anticipated date of discharge: 07/14/18 - Patient Status Disposition: Home Health Service Condition: Fair Functional capacity at discharge: wheelchair bound Overall status at discharge: patient is progressing back to baseline - Discharge Instructions Instructions: Above the Knee Amputation (DC) Follow Up With: Sandoval Childress MD [Partnered Physician] - 07/25/18 12:25 pm Chelo Juarez MD [Primary Care Provider] - Additional Instructions: General Surgical Discharge Instructions 1. No pushing, pulling, or lifting greater than 15 lbs for 2-4 weeks (depending upon procedure). 2. You may shower beginning today, but no tub baths, soaking, or swimming for 2 weeks. 3. You may resume driving when you are off narcotics and are safe to react in a car. 4. Take ibuprofen every 8 hours for discomfort. If this does not relieve discomfort, you may take the as needed Percocet. Take narcotics as directed. Do not take more narcotics then directed and do not share your narcotics with any other person. Do not drink alcohol while on narcotics. 5. Take stool softeners (Colace) or a water based laxative (Miralax) while taking narcotics. You may hold for loose stools. 6. Report any fevers greater than 100.5F, increase abdominal discomfort, drainage that looks like pus, increased redness or pain at the surgical site, or any vomiting. 7. Report any pain in the calves, shortness of breath, or rapid heartbeat. 8. Follow-up in the office as directed. - Diet and Activity Activity: other (Wheel chair for mobility until seen in follow up) Diet: advance to your usual diet <Sandoval Childress - Last Filed: 07/14/18 12:03> Orders not resulted at time of discharge: Pending orders 07/10/18 08:11 US anesthesia pain block [US] Stat 07/10/18 10:37 Surgical Pathology [PTH] Routine Date of Encounter: 07/14/18 General Surgery Exam Initial Vital Signs Temp Pulse Resp BP Pulse Ox 98.4 F 83 18 115/70 99 07/10/18 06:29 07/10/18 06:29 07/10/18 06:29 07/10/18 06:29 07/10/18 06:29 - Hospital Course Hospital course: Ms. Haley is a 52 year old female - Time Spent with Patient Total time spent providing and/or coordinating discharge services: Date of admission: 07/10/18 11:35 Primary care physician: Chelo Juarez MD Consults: 07/11/18 08:05 Consult to Occupational Therapy [CONS] Routine Comment: Evaluate, develop and implement POC Reason for Consult: OT, mobilization and discharge planning Does patient have active BEDREST order?: No Is patient medically & hemodynamically stable?: Yes Consult to Physical Therapy [CONS] Routine Comment: Evaluate, develop and implement POC Reason for Consult: PT Daily, mobilization and discharge planning, Please continue PT over the weekend Does patient have active BEDREST order?: No Is patient medically & hemodynamically stable?: Yes Consult to Motor Vehicles Inspector [CONS] Routine Reason for SW Consult: discharge planning - Attending Attestation I examined this patient and my medical decision-making was reviewed with the Resident Physician. I agree with the documented findings, disposition and treatment plan as described except to the extent set forth below. The patient is seen and evaluated on morning rounds with the resident and the clinical nurse practitioner. I have strongly recommended inpatient rehabilitation to assist with progressing toward ambulation, however, the patient refuses on multiple occasions. She will be discharged home with outpatient occupational therapy and physical therapy. Incision looks great. Sandoval Childress MD FACS
[2018-07-14] MEDS: Gabapentin 300 MG CAPSULE PO SCH (08:45)
[2018-07-14] MEDS: Pantoprazole 40 MG VIAL IVP SCH (08:47)
[2018-07-14] MEDS: OXYCODONE Oral CONC 10 MG/0.5 ML ORAL.SYG SL PRN (08:57)
[2018-07-14 10:27] VITALS: BP 107/76
--- NOTE | 2018-07-14 11:06 | Physician Discharge Referral ---
<Mason Aldana R - Last Filed: 07/14/18 11:12> Home Health/Hosp Referral Info Transfer to: Home Health Attending Provider: Dr. Childress Provider in Charge Post Discharge: Other (Dr. 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 For more information, call the [place] Tobacco Quit Line at 1-025-OYZS-NOW. - Diet/Nutrition Diet/Nutrition Orders: Regular - Activity Activity Orders: Chair, Walker (For transfers) Activity: List: Wheelchair - Services Needed Following services are medically necessary services: Home Health Aide, Physical Therapy, Occupational Therapy - Transfer Medications Prescriptions: OxyCODONE/APAP 5/325 [Percocet 5/325 MG] 1 each PO Q6HR PRN 6 Days #21 tablet PRN Reason: Breakthrough Pain Docusate [Colace] 100 mg PO BID #30 capsule Home Medications: Rivaroxaban [Xarelto] 20 mg PO HS 04/07/18 [History] Nitroglycerin [Nitrostat] 0.4 mg SL Q5M PRN MDD X3 DOSES CALL 911 05/01/18 [ History] Topiramate [Topamax] 200 mg PO BID 06/12/18 [History] Cyclobenzaprine HCl 5 mg PO DAILY 07/10/18 [History] Duloxetine HCl [Cymbalta] 30 mg PO BID 07/10/18 [History] Gabapentin [Neurontin] 600 mg PO QAM 07/10/18 [History] Gabapentin [Neurontin] 600 mg PO QPM 07/10/18 [History] Gabapentin [Neurontin] 900 mg PO HS 07/10/18 [History] OxyCODONE/APAP 5/325 [Percocet 5/325 MG] 1 each PO BID PRN 07/10/18 [History] Potassium Chloride [Klor-Con 10] 10 meq PO DAILY 07/10/18 [History] Pramipexole [Mirapex] 0.25 mg PO QAM 07/10/18 [History] Pravastatin Sodium [Pravachol] 20 mg PO DAILY 07/10/18 [History] Docusate [Colace] 100 mg PO BID #30 capsule 07/14/18 [Rx] OxyCODONE/APAP 5/325 [Percocet 5/325 MG] 1 each PO Q6HR PRN 6 Days #21 tablet [Rx] Allergies/Adverse Reactions: 3 Allergy/AdvReac Type Severity Reaction Status Date / Time walnut Allergy Severe Difficulty Verified 07/10/18 17:51 Breathing cephalexin AdvReac Nausea Verified 07/10/18 17:51 codeine AdvReac Itching Verified 07/10/18 17:51 optiform AdvReac Blister Uncoded 07/10/18 17:51 Certification: Further, I certify that my clinical findings support that this patient is homebound (i.e. absences from home require considerable and taxing effort and are for medical reasons or zoroastrian services or infrequently or short duration when for other reasons) because: Homebound Reason: Patient requires assistance of a person or device to safely leave home, Post-surgery restriction and or conditions limit ability to leave home, Leaving home requires considerable and taxing effort due to condition Attestation: My signature below is to certify that this patient is under my care and that I, or nurse practitioner, or a physician's assistant at surgery working with me, has a face-to -face encounter with this patient. <Sandoval Childress - Last Filed: 07/14/18 12:00> - Respiratory Orders Smoking Cessation: Smoking cessation has been advised. For more information, call the [place] Tobacco Quit Line at 7-151-ARMN-NOW. Certification: Further, I certify that my clinical findings support that this patient is homebound (i.e. absences from home require considerable and taxing effort and are for medical reasons or zoroastrian services or infrequently or short duration when for other reasons) because: Attestation: My signature below is to certify that this patient is under my care and that I, or nurse practitioner, or a physician's assistant at surgery working with me, has a face-to -face encounter with this patient.
== END 2018-07-14 12:25 | disposition home health service (06) | DRG 465 ==
LOC: SAMDAY 06:06 → 3ANU 11:35
PROVIDERS: ADMIT Surgery; ATTEND Surgery

== ENCOUNTER 2019-04-05 18:43 | Inpatient (IN) ==
[2019-04-05] MEDS ORDERED: Acetaminophen 325 MG TABLET PO PRN (21:03)
[2019-04-05] MEDS ORDERED: 0.9 % Sodium Chloride 1,000 ML IVC SCH (21:15)
--- NOTE | 2019-04-05 21:22 | Internal Med History&Physical ---
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 She is transferred here from [facility] where she presented to with complaints of chest pain. She says that for the past 1 week she has been having intermittent episodes of chest pain on exertion which she says she feels more in her back than her chest. She says the pain got worse today and felt the pain in her left arm radiating into her back which caused her concern accompanied by mild shortness of breath. At [facility] she was found to have a troponin of 0.27 with a repeat of 0.34. Her EKG reportedly showed a left bundle branch block that was unchanged from previous and she was transferred here. It is noted that upon her transfer here she was started on nitroglycerin patch after receiving multiple sublingual doses and her blood pressure dropped so she was put on norepinephrine via peripheral line. This was discontinued by EMS on route as her blood pressure had improved. On arrival here she reports feeling much better stating her chest pain has subsided and otherwise has no complaints. He tells me that her blood pressure is typically on the lower side they systolic that hardly exceeds 90 and diastolic of 50 as her norm. Vitals: Reviewed General: Well-appearing and well-developed woman lying comfortably in bed in no acute distress. Skin: Warm and supple. HEENT: Moist mucous membranes. No conjunctivae pallor. Neck: No lymphadenopathy. No JVD. No carotid bruits. No palpable thyroid. Chest: Normal thoracic expansion. Normal breath sounds. Clear to auscultation. ICD palpated on left upper chest wall. Heart: Normal S1 & S2; rhythmic. Abdomen: Non-distended, soft and non-tender to palpation. No peritoneal reaction. Extremities: Right BKA noted with clean stump. Left leg without C/C/E. Neurological: Awake, alert and oriented to person, place and time. No focal deficits. Psych: Affect appropriate. Assessment/Plan 1. NSTEMI: As evidenced by her episodes of chest pain and elevating troponins. She has what appears to be a paced rhythm on my assessment here and therefore unable to perform further EKG interpretation. Will monitor her on telemetry, trend cardiac enzymes, start heparin drip, schedule an echo in the morning to assess for wall motion abnormalities and keep her NPO past midnight pending cardiology evaluation. 2. Hypotension: Seemingly transient and likely caused by nitroglycerin patch placed in the ED after she had already taken 3 SL tablets at home. She improved with removal of the patch and had no vasopressor requirement any longer. She is now at baseline BP. 3. CAD: Should be on antiplatelet therapy; will await home medication reconciliation. 4. VTE: On rivaroxaban which will be on hold for now while on heparin drip. 5. V-tach: s/p ICD and ablation. On propafenone. 6. Obesity: s/p gastric bypass. Counseled and educated on therapeutic lifestyle changes for weight loss as it will be of benefit in controlling comorbidities. Vender evaluation advised. Past Med Surg Social Fam HX - Past Medical History Medical history: arthritis, atrial fibrillation, cardiomyopathy, COPD, coronary artery disease, DVT, kidney stones, myocardial infarction, pulmonary embolus, seizures, other Additional medical history: factor V, leti filter, MRSA, sarcoid, Pacemaker, blood thinners Psychiatric history: no psych history - Past Surgical History Surgical History: angioplasty/stent, appendectomy, cholecystectomy, herniorrhaphy, hip replacement, hysterectomy, knee replacement, orthopedic, other, other, bariatric surgery, IVC filter, pacemaker Additional surgical history: debridement,kidney stone/stent,heart ablation, gastric bypass, skin removal , right lower lobe removed, tonsillectomy and a denoidectomy, stent placed in kidney, kidney stone removal, left tibia extensive irrigation and debridement removal of hardware, R leg I&D wound closure - Social History Smoking Status: Never smoker Smokeless Tobacco Status: No Alcohol use: none Drug use: none - Family History Father Living Status: Hx Family Cardiac Disorders: Yes (CHF) Hx Family Respiratory Disorders: No Hx Family Cancer: No Hx Family Endocrine Disorder: No Hx Family Neuromuscular Disorders: No Hx Family Neurologic Disorders: No Hx Family HEENT Disorders: No Hx Family Autoimmune Disorders: No Sister Living Status: Still Living Hx Family Cardiac Disorders: Yes Hx Family Respiratory Disorders: No Hx Family Cancer: Yes Hx Family Endocrine Disorder: Yes Mother Living Status: Hx Family Cardiac Disorders: No Hx Family Respiratory Disorders: No Hx Family Cancer: Yes (kidney) Hx Family GI Disorders: No Hx Family Endocrine Disorder: Yes (DM) Hx Family Neuromuscular Disorders: No Hx Family Neurologic Disorders: No Hx Family HEENT Disorders: No Hx Family Autoimmune Disorders: No Internal Medicine - H&P: Meds Rivaroxaban [Xarelto] 20 mg PO HS 04/07/18 [History] Nitroglycerin [Nitrostat] 0.4 mg SL Q5M PRN MDD X3 DOSES CALL 911 05/01/18 [History] Topiramate [Topamax] 200 mg PO BID 06/12/18 [History] Cyclobenzaprine HCl 5 mg PO DAILY 07/10/18 [History] Duloxetine HCl [Cymbalta] 30 mg PO BID 07/10/18 [History] Gabapentin [Neurontin] 600 mg PO QAM 07/10/18 [History] Gabapentin [Neurontin] 600 mg PO QPM 07/10/18 [History] Gabapentin [Neurontin] 900 mg PO HS 07/10/18 [History] Potassium Chloride [Klor-Con 10] 10 meq PO DAILY 07/10/18 [History] Pramipexole [Mirapex] 0.25 mg PO QAM 07/10/18 [History] Pravastatin Sodium [Pravachol] 20 mg PO DAILY 07/10/18 [History] OxyCODONE/APAP 5/325 [Percocet 5/325 MG] 1 each PO Q6HR PRN 6 Days #21 tablet 07/14/18 [Rx] Allergy/AdvReac Type Severity Reaction Status Date / Time walnut Allergy Severe Difficulty Verified 07/10/18 17:51 Breathing cephalexin AdvReac Nausea Verified 07/10/18 17:51 codeine AdvReac Itching Verified 07/10/18 17:51 optiform AdvReac Blister Uncoded 07/10/18 17:51 All Systems PM: A 10-system review of systems was performed and is negative for pertinent findings except as documented above in the HPI. - Constitutional Vitals: Temp Pulse Resp BP Pulse Ox 98.2 F 118 16 128/101 98 04/05/19 20:38 04/05/19 20:38 04/05/19 20:38 04/05/19 20:38 04/05/19 20:38 Exam: . - Time Spent With Patient Total time spent is greater than 50% in coordination of care (as documented) at patient's floor/unit and/or counseling patient: Greater than 35 minutes
[2019-04-05 22:07] LABS: Basophils % 0.6 %; Eosinophils # 0.2 K/mcL (0.0-0.6); Eosinophils % 3.5 %; Hematocrit 38.7 % (35.3-44.9); Hemoglobin 12.2 g/dL (11.5-15.4); Immature Granulocytes % 0.6 % (0-4); Lymphocytes # 1.9 K/mcL (0.6-4.6); Lymphocytes % 34.2 %; Mean Corpuscular HGB Conc 31.5 g/dL (31.6-35.5); Mean Corpuscular Volume 101.6 fL (83.0-100.0); Monocytes # 0.4 K/mcL (0.0-1.3); Monocytes % 7.9 %; Neutrophils # 2.9 K/mcL (1.6-8.9); Platelet Count 165 K/mcL (140-400); Red Blood Count 3.81 M/mcL (3.82-4.97); Red Cell Distribution Width 13.7 % (11.5-14.5); Segmented Neutrophils % 53.2 %; White Blood Count 5.4 K/mcL (4.3-11.1)
[2019-04-05 22:15] LABS: Estimated Average Glucose 103 mg/dl; Hemoglobin A1C 5.2 %
[2019-04-05 22:24] LABS: Chol/HDL Ratio 2.4 (0-4.9)
[2019-04-05 22:26] LABS: Alanine Aminotransferase 17 Units/L (7-52); Albumin 3.2 g/dL (3.5-5.7); Albumin/Globulin Ratio 1.5 (1.1-2.2); Alkaline Phosphatase 93 Units/L (34-104); Aspartate Amino Transferase 18 Units/L (13-39); BUN/Creatinine Ratio 23 (6-26); Bilirubin,Direct 0.1 mg/dL (0.0-0.2); Bilirubin,Indirect 0.3 mg/dL (0.0-1.2); Bilirubin,Total 0.4 mg/dL (0.3-1.0); Blood Urea Nitrogen 26 mg/dL (6-20); Calcium 8.2 mg/dL (8.6-10.3); Carbon Dioxide 17 mEq/L (23-29); Chloride 116 mEq/L (98-107); Globulin 2.2 g/dL (2.4-3.5); Glucose 96 mg/dL (70-105); Osmolality,Calculated 293 (280-300); Potassium 4.4 mEq/L (3.5-5.1); Sodium 139 mEq/L (136-145); Total Protein 5.4 g/dL (6.4-8.9); eGFR For African Americans > 60 (> 60); eGFR For Non-African Americans 50 (> 60)
[2019-04-05 22:29] LABS: Troponin I 0.17 ng/mL (< 0.04)
[2019-04-05 22:38] LABS: Thyroid Stimulating Hormone 2.141 mcIU/mL (0.340-5.600)
[2019-04-05] MEDS ORDERED: *HR* Heparin 5,000 UNIT/ML VIAL IVP PRN ×2 (22:41)
[2019-04-05] MEDS ORDERED: *HR* Heparin 5,000 UNIT/ML VIAL IVP ONE (22:41)
[2019-04-05 23:17] LABS: Heparin anti-factor XA UFH 0.11 IU/mL (0.30-0.70); Prothrombin Time 11.6 Seconds (9.4-12.1)
[2019-04-05 23:20] LABS: Activated Partial Thrombo Time 34.5 Seconds (26.0-36.0)
[2019-04-05] MEDS: Heparin 25,000 UNIT/250 ML D5W 25,000 UNIT/250 ML IV.SOLN IVC SCH (23:48)
--- NOTE | 2019-04-06 08:47 | Internal Med Progress Note ---
<Anne Read - Last Filed: 04/06/19 14:44> Hospitalist Progress Note - Encounter Date of Encounter: 04/06/19 Time of Encounter: 09:00 - Subjective Interval History: 53-year-old female with past medical history of CAD s/p 2 stents, atrial fibrillation with ICD and ablation procedure, PE on Xarelto, CHF, sarcoidosis status post right lower lung lobectomy, and right BKA who presented as a transfer from [facility] due to chest pain. Patient admitted for NSTEMI and started on heparin drip. Today, patient is laying in bed comfortably alert and oriented times 3. Her is at the bedside. She denies any chest pain at this time reports last century chest pain was last night. She denies shortness of breath, cough, diaphoresis, nausea, abdominal pain. She is awaiting cardiology evaluation. She has no complaints at this time. - Exam Vitals: Temp Pulse Resp BP Pulse Ox 98.2 F 67 18 108/64 95 04/06/19 07:10 04/06/19 07:10 04/06/19 07:10 04/06/19 07:10 04/06/19 07:10 Exam: Gen.: Vitals noted. No acute distress. AAOx3 HEENT: oropharynx clear, Normocephalic, atraumatic Cardiac: RRR, no murmur, +S1/S2 Pulmonary: CTA bilaterally, no wheezes, rales or rhonchi, equal chest expansion Abdomen: soft, nontender, Bowel sounds noted, no guarding MSK: no joint swelling noted Extremities: no LLE edema, nontender calf, no cyanosis or clubbing, right BKA Neuro: A&Ox3, moves all extremities, no focal deficits Psych: Appropriate mood and behavior - Assessment and Plan (1) Atrial fibrillation Current Visit: Yes Status: Acute Assessment and Plan: History of atrial fibrillation on anticoagulation with Xarelto. s/p ablation. Not on a beta alan. -Heart rate controlled -Currently on heparin drip (2) CAD (coronary artery disease) Current Visit: No Status: Chronic Assessment and Plan: History of CAD s/p 2 stents at 31 years old. Taking a statin. Does not take a beta alan, ACEi. (3) Pacemaker Current Visit: No Status: Chronic Assessment and Plan: s/p ICD/pacemaker. History of ventricular tachycardia. (4) Morbid obesity Current Visit: No Status: Chronic Assessment and Plan: BMI 38. Will need lifestyle changes in weight loss. (5) Status post amputation of lower extremity Current Visit: No Status: Acute Assessment and Plan: s/p right BKA secondary to infected knee joint (6) DVT prophylaxis Current Visit: No Status: Acute Assessment and Plan: On heparin drip (7) NSTEMI (non-ST elevated myocardial infarction) Current Visit: Yes Status: Acute Assessment and Plan: NSTEMI -patient reported chest pain that was doing her shoulder blades on her back. No radiation. Sharp and quality lasting 4 to 5 minutes. Improved with nitroglycerin. Similar pain to when she needed stents last time. -at [facility] patient's troponin was .27 > .34 -troponin .17 > .12 -EKG demonstrated no acute ischemic changes. -lipid panel WNL -TSH WNL -CXR no acute cardiopulmonary process -currently chest pain free -TTE: LVEF= 55% Impressions: LVEF 55%. Normal LV chamber size and function. Asymmetric hypertrophy of the basal septum. Mild systolic anterior motion of the MV leaflets. No LVOT obstruction. Mild left ventricular diastolic dysfunction. Atypical septal motion consistent with paced rhythm. Normal right ventricular structure and function. No evidence of pulmonary hypertension. A device lead was visualized in the right atrium and right ventricle. No significant valvular dysfunction. Plan: -continue heparin drip -cardiology consulted and will determine whether to go forth with stress test vs C -continue aspirin -started atorvastatin 40 mg (patient takes pravastatin 20 mg at home) -continue cardiac telemetry - Time Spent with Patient Total time spent is greater than 50% in coordination of care (as documented) at patient's floor/unit and/or counseling patient: Internal Medicine: Result - Labs CBC & Chem 7: 04/05/19 21:03 04/05/19 21:03 Labs: Short CBC 04/05/19 Range/Units 21:03 WBC 5.4 (4.3-11.1) K/mcL Hgb 12.2 (11.5-15.4) g/dL Hct 38.7 (35.3-44.9) % Plt Count 165 (140-400) K/mcL Neutrophils # 2.9 (1.6-8.9) K/mcL BMP 04/05/19 21:03 Sodium 139 Potassium 4.4 Chloride 116 H Carbon Dioxide 17 L BUN 26 H Creatinine 1.14 Glucose 96 Calcium 8.2 L Cardiac Enzymes 04/05/19 04/06/19 Range/Units 21:03 05:34 Troponin I 0.17 H* 0.12 H* (< 0.04) ng/mL Liver Function 04/05/19 Range/Units 21:03 Total Bilirubin 0.4 (0.3-1.0) mg/dL Direct Bilirubin 0.1 (0.0-0.2) mg/dL AST 18 (13-39) Units/L ALT 17 (7-52) Units/L Alkaline Phosphatase 93 (34-104) Units/L Albumin 3.2 L (3.5-5.7) g/dL - ABG Interpretation ABG results: PT/INR, D-dimer PT 11.6 Seconds (9.4-12.1) 04/05/19 22:54 - Impressions Impressions Chest X-Ray 04/05/19 21:07 IMPRESSION: Stable chest. Bibasilar atelectasis or scarring with postoperative changes on the right. No infiltrate or overt failure. D/ / Aamir Ward MD / Aamir Ward MD Interpreting Provider: Aamir Ward MD Consult Discharge Plan - Plan Referrals: Chelo Juarez MD [Primary Care Provider] - <Chirstian Smith - Last Filed: 04/06/19 19:19> Hospitalist Progress Note - Encounter Date of Encounter: 04/06/19 - Exam Vitals: Temp Pulse Resp BP Pulse Ox 98.1 F 64 14 116/63 95 04/06/19 15:45 04/06/19 15:45 04/06/19 15:45 04/06/19 15:45 04/06/19 07:10 - Assessment and Plan (1) CAD (coronary artery disease) Current Visit: No Status: Chronic (2) Pacemaker Current Visit: No Status: Chronic (3) Morbid obesity Current Visit: No Status: Chronic (4) DVT prophylaxis Current Visit: No Status: Acute (5) Status post amputation of lower extremity Current Visit: No Status: Acute (6) Atrial fibrillation Current Visit: Yes Status: Acute (7) NSTEMI (non-ST elevated myocardial infarction) Current Visit: Yes Status: Acute - Time Spent with Patient Total time spent is greater than 50% in coordination of care (as documented) at patient's floor/unit and/or counseling patient: Internal Medicine: Result - Labs CBC & Chem 7: 04/05/19 21:03 04/05/19 21:03 Labs: Short CBC 04/05/19 Range/Units 21:03 WBC 5.4 (4.3-11.1) K/mcL Hgb 12.2 (11.5-15.4) g/dL Hct 38.7 (35.3-44.9) % Plt Count 165 (140-400) K/mcL Neutrophils # 2.9 (1.6-8.9) K/mcL BMP 04/05/19 21:03 Sodium 139 Potassium 4.4 Chloride 116 H Carbon Dioxide 17 L BUN 26 H Creatinine 1.14 Glucose 96 Calcium 8.2 L Cardiac Enzymes 04/05/19 04/06/19 Range/Units 21:03 05:34 Troponin I 0.17 H* 0.12 H* (< 0.04) ng/mL Liver Function 04/05/19 Range/Units 21:03 Total Bilirubin 0.4 (0.3-1.0) mg/dL Direct Bilirubin 0.1 (0.0-0.2) mg/dL AST 18 (13-39) Units/L ALT 17 (7-52) Units/L Alkaline Phosphatase 93 (34-104) Units/L Albumin 3.2 L (3.5-5.7) g/dL - ABG Interpretation ABG results: PT/INR, D-dimer PT 11.6 Seconds (9.4-12.1) 04/05/19 22:54 - Impressions Impressions Chest X-Ray 04/05/19 21:07 IMPRESSION: Stable chest. Bibasilar atelectasis or scarring with postoperative changes on the right. No infiltrate or overt failure. D/ / Aamir Ward MD / Aamir Ward MD Interpreting Provider: Aamir Ward MD Echocardiogram 04/05/19 21:08 Impressions: LVEF 55%. Normal LV chamber size and function. Asymmetric hypertrophy of the basal septum. Mild systolic anterior motion of the MV leaflets. No LVOT obstruction. Mild left ventricular diastolic dysfunction. Atypical septal motion consistent with paced rhythm. Normal right ventricular structure and function. No evidence of pulmonary hypertension. A device lead was visualized in the right atrium and right ventricle. No significant valvular dysfunction. Left Ventricular Wall Motion: Rest Echo Findings The basal inferior and basal inferior septal waters were hypokinetic. All other wall segments showed normal motion. Findings: Study Quality * Technically adequate exam. Left Ventricle * LVEF 55%. * Normal LV chamber size and function. * Asymmetric hypertrophy of the basal septum. Mild systolic anterior motion of the MV leaflets. No LVOT obstruction. * Mild left ventricular diastolic dysfunction. * Atypical septal motion consistent with paced rhythm. Right Ventricle * Normal right ventricular structure and function. Left Atrium * Severely dilated left atrium. Right Atrium * Mildly dilated right atrium. Interatrial Septum * Interatrial septum not well evaluated. Aortic Valve * Trileaflet aortic valve. * Mildly sclerotic aortic valve leaflets. * No aortic regurgitation. * No aortic stenosis. Mitral Valve * Normal mitral valve structure and function. * No mitral stenosis. * No mitral regurgitation. Tricuspid Valve * Normal tricuspid valve structure and function. * Trace tricuspid regurgitation. * No evidence of pulmonary hypertension. Pulmonic Valve * Normal pulmonic valve structure and function. * Trace pulmonic regurgitation. Aorta * Normally sized aortic root. Pericardium * The pericardium appears normal. IVC * The IVC is not well evaluated. Pulmonary Artery * Normal visualized portions of the main pulmonary artery. Device lead * A device lead was visualized in the right atrium and right ventricle. - Attending Attestation I examined this patient and my medical decision-making was reviewed with the Resident Physician. I agree with the documented findings, disposition and treatment plan as described except to the extent set forth below. ___ <ReadAnne - Last Filed: 04/06/19 14:44> (1) Atrial fibrillation Qualifiers: Atrial fibrillation type: paroxysmal Qualified Code(s): I48.0 - Paroxysmal atrial fibrillation (2) CAD (coronary artery disease) Qualifiers: Coronary Disease-Associated Artery/Lesion type: [place] artery [place] vs. transplanted heart: [place] heart Associated angina: angina presence unspecified Qualified Code(s): I25.10 - Atherosclerotic heart disease of [place] coronary artery without angina pectoris <Christian Smith - Last Filed: 04/06/19 19:19> (1) CAD (coronary artery disease) Qualifiers: Coronary Disease-Associated Artery/Lesion type: [place] artery [place] vs. transplanted heart: [place] heart Associated angina: angina presence unspecified Qualified Code(s): I25.10 - Atherosclerotic heart disease of [place] coronary artery without angina pectoris (6) Atrial fibrillation Qualifiers: Atrial fibrillation type: paroxysmal Qualified Code(s): I48.0 - Paroxysmal atrial fibrillation
[2019-04-06] MEDS: Aspirin 81 MG TAB.CHEW PO SCH (09:07)
--- NOTE | 2019-04-06 12:34 | Cardiology Consult Note ---
<Cheri Dolan - Last Filed: 04/06/19 12:20> Date of Encounter: 04/06/19 Time of Encounter: 10:00 Assessment and Plan (1) Elevated troponin Current Visit: Yes Status: Acute Per cardiology: -Troponins 0.27/0.34 [facility], 0.17, 0.12 in the setting of possible a.fib RVR, reports HRs 120-130s at home. -Does report stable anginal symptoms. -ECG with no acute ischemic changes noted. -Denies current chest pain. -TTE with LVEF preserved. -stress 07/2017 negative for ischemia or infarct. -ON asa, heparin drip. Not on BB due to hypotension. -Suspect demand ischemia related to possible a.fib RVR. Will check device to determine burden of a.fib. Device check ordered. -Stress vs. cath tomorrow. -Will start statin. (2) Atrial fibrillation Current Visit: Yes Status: Acute Per cardiology: -known PAF. -reports high heart rates at home. -has [employer] pacemaker. -Not on any AV raiza blockers due to hypotension. -Will check device, ordered. -Further recs pending device check. Qualifiers: Atrial fibrillation type: paroxysmal Qualified Code(s): I48.0 - Paroxysmal atrial fibrillation Discussion w patient/family: The assessment and plan as outlined above was discussed with the patient and/or family members who expressed understanding and agreement. All questions were answered. Thank you for involving us in the care of your patient. Please call with any questions. Discussed and reviewed with . History of Present Illness Consult date: 04/05/19 Requesting physician: Carmella Reed Consult reason: elevated troponin Chief complaint: angina, tachycardia History of present illness: Ms. Haley is a 53 year old female with a relevant past medical history of CAD s/p PCI, [place], seizures, COPD, DVT, leti filter, PAF, sarcoidosis, pacemaker, factor V, VT and VT ablation, gastric bypass, right AKA, who presented to [facility] with complaints of back pain that radiated into her shoulders. States this is similar to her previous angina. Patient states symptoms started while doing housework. STates she took 2 nitro that relieved pain. Patient denies increased shortness of breath. Does report increased fatigue. Denies palpitations or fluttering, however states HRs have been consistently in the 120-130s at home. Currently angina free. Past Med Surg Social Fam HX - Past Medical History Attestation: Yes The following information was validated with the patient. Source: old records reviewed Medical history: arthritis, atrial fibrillation, cardiomyopathy, COPD, coronary artery disease, DVT, kidney stones, myocardial infarction, pulmonary embolus, seizures, other Additional medical history: factor V, leti filter, MRSA, sarcoid, Pacemaker, blood thinners Psychiatric history: no psych history - Past Surgical History Surgical History: angioplasty/stent, appendectomy, cholecystectomy, herniorrhaphy, hip replacement, hysterectomy, knee replacement, orthopedic, other, other, bariatric surgery, IVC filter, pacemaker Additional surgical history: debridement,kidney stone/stent,heart ablation, gastric bypass, skin removal , right lower lobe removed, tonsillectomy and adenoidectomy, stent placed in kidney, kidney stone removal, left tibia extensive irrigation and debridement removal of hardware, R leg I&D wound closure - Social History Smoking Status: Never smoker Smokeless Tobacco Status: No Alcohol use: none Drug use: none - Family History Father Living Status: Hx Family Cardiac Disorders: Yes (CHF) Hx Family Respiratory Disorders: No Hx Family Cancer: No Hx Family Endocrine Disorder: No Hx Family Neuromuscular Disorders: No Hx Family Neurologic Disorders: No Hx Family HEENT Disorders: No Hx Family Autoimmune Disorders: No Sister Living Status: Still Living Hx Family Cardiac Disorders: Yes Hx Family Respiratory Disorders: No Hx Family Cancer: Yes Hx Family Endocrine Disorder: Yes Mother Living Status: Hx Family Cardiac Disorders: No Hx Family Respiratory Disorders: No Hx Family Cancer: Yes (kidney) Hx Family GI Disorders: No Hx Family Endocrine Disorder: Yes (DM) Hx Family Neuromuscular Disorders: No Hx Family Neurologic Disorders: No Hx Family HEENT Disorders: No Hx Family Autoimmune Disorders: No Medications and Allergies Rivaroxaban [Xarelto] 20 mg PO HS 04/07/18 [History] Nitroglycerin [Nitrostat] 0.4 mg SL Q5M PRN MDD X3 DOSES CALL 911 05/01/18 [History] Topiramate [Topamax] 200 mg PO BID 06/12/18 [History] Cyclobenzaprine HCl 5 mg PO DAILY 07/10/18 [History] Duloxetine HCl [Cymbalta] 30 mg PO BID 07/10/18 [History] Gabapentin [Neurontin] 600 mg PO QAM 07/10/18 [History] Gabapentin [Neurontin] 600 mg PO QPM 07/10/18 [History] Gabapentin [Neurontin] 900 mg PO HS 07/10/18 [History] Potassium Chloride [Klor-Con 10] 10 meq PO DAILY 07/10/18 [History] Pramipexole [Mirapex] 0.25 mg PO QAM 07/10/18 [History] Pravastatin Sodium [Pravachol] 20 mg PO DAILY 07/10/18 [History] OxyCODONE/APAP 5/325 [Percocet 5/325 MG] 1 each PO Q6HR PRN 6 Days #21 tablet 07/14/18 [Rx] Allergy/AdvReac Type Severity Reaction Status Date / Time walnut Allergy Severe Difficulty Verified 07/10/18 17:51 Breathing cephalexin AdvReac Nausea Verified 07/10/18 17:51 codeine AdvReac Itching Verified 07/10/18 17:51 optiform AdvReac Blister Uncoded 07/10/18 17:51 All Systems Review: The remainder of the systems were reviewed and are negative - Constitutional Constitutional: fatigue - Cardiovascular Cardiovascular: as per HPI, chest pain with exertion, rapid heart rate Physical Examination Vital Signs, Last 4 Hours Temp Pulse Resp BP 04/06/19 11:49 97.8 F 66 16 104/54 General: Conversant, No Apparent Distress HEENT: Atraumatic, Normocephaly, Mucus Membranes Moist Neck: No JVD, Normal carotid pulses Cardiac: Reg Rate and Rhythm, Normal S1 and S2, No Murmur Lungs: Normal Breath Sounds, No Wheeze, Rales, Rhonchi Neuro: Alert and responsive, No focal deficits noted Abdomen: Soft, Non-Tender Skin: No rashes noted on visualized skin Musculoskeletal: No Chest Wall Tenderness Extremities: No Clubbing, No Cyanosis, No Edema, Normal Pulses, Other (Right AKA. ) Results 04/05/19 21:03 04/05/19 21:03 Lab Results Impressions Chest X-Ray 04/05/19 21:07 IMPRESSION: Stable chest. Bibasilar atelectasis or scarring with postoperative changes on the right. No infiltrate or overt failure. D/ / Aamir Ward MD / Aamir Ward MD Interpreting Provider: Aamir Ward MD Echocardiogram 04/05/19 21:08 Impressions: LVEF 55%. Normal LV chamber size and function. Asymmetric hypertrophy of the basal septum. Mild systolic anterior motion of the MV leaflets. No LVOT obstruction. Mild left ventricular diastolic dysfunction. Atypical septal motion consistent with paced rhythm. Normal right ventricular structure and function. No evidence of pulmonary hypertension. A device lead was visualized in the right atrium and right ventricle. No significant valvular dysfunction. Left Ventricular Wall Motion: Rest Echo Findings The basal inferior and basal inferior septal waters were hypokinetic. All other wall segments showed normal motion. Findings: Study Quality * Technically adequate exam. Left Ventricle * LVEF 55%. * Normal LV chamber size and function. * Asymmetric hypertrophy of the basal septum. Mild systolic anterior motion of the MV leaflets. No LVOT obstruction. * Mild left ventricular diastolic dysfunction. * Atypical septal motion consistent with paced rhythm. Right Ventricle * Normal right ventricular structure and function. Left Atrium * Severely dilated left atrium. Right Atrium * Mildly dilated right atrium. Interatrial Septum * Interatrial septum not well evaluated. Aortic Valve * Trileaflet aortic valve. * Mildly sclerotic aortic valve leaflets. * No aortic regurgitation. * No aortic stenosis. Mitral Valve * Normal mitral valve structure and function. * No mitral stenosis. * No mitral regurgitation. Tricuspid Valve * Normal tricuspid valve structure and function. * Trace tricuspid regurgitation. * No evidence of pulmonary hypertension. Pulmonic Valve * Normal pulmonic valve structure and function. * Trace pulmonic regurgitation. Aorta * Normally sized aortic root. Pericardium * The pericardium appears normal. IVC * The IVC is not well evaluated. Pulmonary Artery * Normal visualized portions of the main pulmonary artery. Device lead * A device lead was visualized in the right atrium and right ventricle. Active Medications Acetaminophen (Tylenol) 650 mg PO Q6H PRN PRN Reason: mild pain/fever Stop: 10/05/19 21:04 Aspirin (Aspirin) 81 mg PO DAILY BR[facility] Stop: 10/06/19 09:01 Last Admin: 04/06/19 09:07 Dose: 81 mg Documented by: Atorvastatin Calcium (Lipitor) 40 mg PO HS [facility] Stop: 10/06/19 21:01 Heparin Sodium (Porcine) (Heparin) 4,000 unit IVP Q6HR PRN PRN Reason: SEE COMMENTS Stop: 10/05/19 22:42 Heparin Sodium (Porcine) (Heparin) 2,000 unit IVP Q6H PRN PRN Reason: SEE COMMENTS Stop: 10/05/19 22:42 Heparin Sodium/Dextrose (Heparin 25,000 Unit/250 Ml D5w) 25,000 unit in 250 mls @ 9.932 mls/hr IVC .Q24H BRYON; Protocol Stop: 10/05/19 22:46 Last Titration: 04/06/19 07:06 Dose: 8.87 unit/kg/hr, 9.9 mls/hr Documented by: Laboratory Tests 04/05/19 04/05/19 04/06/19 21:03 21:03 05:34 Hgb 12.2 Creatinine 1.14 Troponin I 0.17 H* 0.12 H* - Imaging and Cardiology Chest Xray: report reviewed Stress Test: report reviewed Echo: report reviewed - EKG Interpretation EKG results cardiology: personally reviewed (ECG with atrial tachycardia, HR 121.), other (Telemetry reviewed with average HR previous 12 hours noted to be 98, SR. Intermittent paced rhythm.) Consult Discharge Plan - Plan Referrals: Chelo Juarez MD [Primary Care Provider] - <Ludmila Seay - Last Filed: 04/06/19 17:44> Date of Encounter: 04/06/19 - Attending Attestation Patient was seen and evaluated independently by me. Findings, assessment and plan were discussed at length with patient, questions answered. Agree with nurse practitioner's/resident's documentation. Addition as follows, 53 yoCF ho remote PCI, PAF on xarelto, s/p PPM, VT ablation, HFpEF, sarcoidosis, DVT s/p IVCF, FVL. P/w recurrent typical and atypical angina/equivalent (left upper back/arm) several months, more frequent past wks. Recent [facility] ED visit for same 1 wk ago w/ elevated BNP and D dimer and neg trop, d/c with lasix. Episodes of tachycardia unclear correlation with chest pain. ECG no ischemia, trop max 0.3 down trending. 07/2017 SPECT no ischemia or infarct. No anemia or SALOME, no bleeding diathesis. On heparin drip, xarelto on hold. VSS, CTA B/L, RR, left pedal edema, R-AKA. A: NSTEMI, type II vs type I Accelerating angina (typical and atypical) PAF on xarelto S/p PPM HFpEF, currently euvolemia P: device check for AF burden and correlation between chest pain and Afib RVR episodes if correlation non-definitive, will LHC vs SPECT NPO after midnight hold xarelto for now Ludmila Seay MD, PhD Assessment and Plan Discussion w patient/family: The assessment and plan as outlined above was discussed with the patient and/or family members who expressed understanding and agreement. All questions were answered. Thank you for involving us in the care of your patient. Please call with any questions. History of Present Illness History of present illness: Ms. Haley is a 53 year old female All Systems Review: The remainder of the systems were reviewed and are negative Physical Examination Vital Signs, Last 4 Hours Temp Pulse Resp BP 04/06/19 15:45 98.1 F 64 14 116/63 Results 04/05/19 21:03 04/05/19 21:03 Lab Results 04/05/19 04/05/19 04/05/19 21:03 21:03 21:06 WBC 5.4 Hgb 12.2 Hct 38.7 Plt Count 165 INR APTT Sodium 139 Potassium 4.4 Chloride 116 H Carbon Dioxide 17 L BUN 26 H Creatinine 1.14 Glucose 96 Calcium 8.2 L Total Bilirubin 0.4 AST 18 ALT 17 Alkaline Phosphatase 93 Troponin I 0.17 H* TSH 2.141 04/05/19 04/06/19 22:54 05:34 WBC Hgb Hct Plt Count INR 1.0 APTT 34.5 Sodium Potassium Chloride Carbon Dioxide BUN Creatinine Glucose Calcium Total Bilirubin AST ALT Alkaline Phosphatase Troponin I 0.12 H* TSH
--- NOTE | 2019-04-06 16:32 | Pre-Sedation Evaluation ---
Pre-sedation evaluation - Pre-sedation checklist Date of procedure: 04/06/19 Procedure: LHC Recent Vitals: Last Vital Signs Temp 98.1 F 04/06/19 15:45 Pulse 64 04/06/19 15:45 Resp 14 04/06/19 15:45 BP 116/63 04/06/19 15:45 Pulse Ox 95 04/06/19 07:10 ASA Classification *see protocol: CLASS II-Mild systemic disease Cardiac Registry (Cardio Only) - Functional Capacity Functional Capacity: >=4 METS without symptoms - Clincal Frailty Scale Clinical Frailty Scale: Managing Well
[2019-04-06] MEDS: Heparin 25,000 UNIT/250 ML D5W 25,000 UNIT/250 ML IV.SOLN IVC SCH (20:32)
[2019-04-07 07:24] LABS: Hematocrit 34.1 % (35.3-44.9); Hemoglobin 10.9 g/dL (11.5-15.4); Mean Corpuscular Hemoglobin 32.1 pg (28.0-33.3); Mean Corpuscular Volume 100.3 fL (83.0-100.0); Mean Platelet Volume 8.9 fL (9.4-12.4); Platelet Count 131 K/mcL (140-400); Red Cell Distribution Width 13.5 % (11.5-14.5); White Blood Count 3.7 K/mcL (4.3-11.1)
[2019-04-07 07:46] LABS: BUN/Creatinine Ratio 24 (6-26); Blood Urea Nitrogen 20 mg/dL (6-20); Calcium 8.6 mg/dL (8.6-10.3); Carbon Dioxide 20 mEq/L (23-29); Chloride 116 mEq/L (98-107); Glucose 95 mg/dL (70-105); Osmolality,Calculated 294 (280-300); Potassium 3.3 mEq/L (3.5-5.1); Sodium 141 mEq/L (136-145); eGFR For African Americans > 60 (> 60); eGFR For Non-African Americans > 60 (> 60)
[2019-04-07] MEDS: Aspirin 81 MG TAB.CHEW PO SCH (08:32)
--- NOTE | 2019-04-07 08:41 | Internal Med Progress Note ---
Hospitalist Progress Note - Encounter Date of Encounter: 04/07/19 Time of Encounter: 08:30 - Subjective Interval History: 53-year-old female with past medical history of CAD s/p 2 stents, atrial fibrillation with ICD and ablation procedure, PE on Xarelto, CHF, sarcoidosis status post right lower lung lobectomy, and right BKA who presented as a transfer from [facility] due to chest pain. Patient admitted for NSTEMI and started on heparin drip. Today the patient is laying comfortably in bed. She has no complaints. She denies chest pain, shortness of breath, fever, chills, palpitations. She is a waiting for the cardiology team to update her on the plan for today. - Exam Vitals: Temp Pulse Resp BP Pulse Ox 97.9 F 66 14 101/59 94 04/07/19 07:14 04/07/19 07:14 04/07/19 07:14 04/07/19 07:14 04/07/19 07:14 Exam: Gen.: Vitals noted. No acute distress. AAOx3 HEENT: oropharynx clear, Normocephalic, atraumatic Cardiac: RRR, no murmur, +S1/S2 Pulmonary: CTA bilaterally, no wheezes, rales or rhonchi, equal chest expansion Abdomen: soft, nontender, Bowel sounds noted, no guarding MSK: no joint swelling noted Extremities: no LLE edema, nontender calf, no cyanosis or clubbing, right BKA Neuro: A&Ox3, moves all extremities, no focal deficits Psych: Appropriate mood and behavior - Assessment and Plan (1) NSTEMI (non-ST elevated myocardial infarction) Current Visit: Yes Status: Acute Assessment and Plan: NSTEMI -patient reported chest pain that was doing her shoulder blades on her back. No radiation. Sharp and quality lasting 4 to 5 minutes. Improved with nitroglycerin. Similar pain to when she needed stents last time. -at [facility] patient's troponin was .27 > .34 -troponin .17 > .12 -EKG demonstrated no acute ischemic changes. -lipid panel WNL -TSH WNL -CXR no acute cardiopulmonary process -currently chest pain free -TTE: LVEF= 55% Impressions: LVEF 55%. Normal LV chamber size and function. Asymmetric hypertrophy of the basal septum. Mild systolic anterior motion of the MV leaflets. No LVOT obstruction. Mild left ventricular diastolic dysfunction. Atypical septal motion consistent with paced rhythm. Normal right ventricular structure and function. No evidence of pulmonary hypertension. A device lead was visualized in the right atrium and right ventricle. No significant valvular dysfunction. Plan: -continue heparin drip -cardiology consulted and will take patient for [facility] today -continue aspirin -started atorvastatin 40 mg (patient takes pravastatin 20 mg at home) -continue cardiac telemetry (2) Atrial fibrillation Current Visit: Yes Status: Acute Assessment and Plan: History of atrial fibrillation on anticoagulation with Xarelto. s/p ablation. Not on a beta alan. -Heart rate controlled -Currently on heparin drip (3) CAD (coronary artery disease) Current Visit: No Status: Chronic Assessment and Plan: History of CAD s/p 2 stents at 31 years old. Taking a statin. Does not take a beta alan, ACEi. (4) Pacemaker Current Visit: No Status: Chronic Assessment and Plan: s/p ICD/pacemaker. History of ventricular tachycardia. (5) Morbid obesity Current Visit: No Status: Chronic Assessment and Plan: BMI 38. Will need lifestyle changes in weight loss. 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 (7) DVT prophylaxis Current Visit: No Status: Acute Assessment and Plan: On heparin drip - Time Spent with Patient Total time spent is greater than 50% in coordination of care (as documented) at patient's floor/unit and/or counseling patient: Internal Medicine: Result - Labs CBC & Chem 7: 04/07/19 07:02 04/07/19 07:02 Labs: Short CBC 04/07/19 Range/Units 07:02 WBC 3.7 L (4.3-11.1) K/mcL Hgb 10.9 L (11.5-15.4) g/dL Hct 34.1 L (35.3-44.9) % Plt Count 131 L (140-400) K/mcL BMP 04/07/19 07:02 Sodium 141 Potassium 3.3 L Chloride 116 H Carbon Dioxide 20 L BUN 20 Creatinine 0.85 Glucose 95 Calcium 8.6 - ABG Interpretation ABG results: PT/INR, D-dimer PT 11.6 Seconds (9.4-12.1) 04/05/19 22:54 - Impressions Impressions Echocardiogram 04/05/19 21:08 Impressions: LVEF 55%. Normal LV chamber size and function. Asymmetric hypertrophy of the basal septum. Mild systolic anterior motion of the MV leaflets. No LVOT obstruction. Mild left ventricular diastolic dysfunction. Atypical septal motion consistent with paced rhythm. Normal right ventricular structure and function. No evidence of pulmonary hypertension. A device lead was visualized in the right atrium and right ventricle. No significant valvular dysfunction. Left Ventricular Wall Motion: Rest Echo Findings The basal inferior and basal inferior septal waters were hypokinetic. All other wall segments showed normal motion. Findings: Study Quality * Technically adequate exam. Left Ventricle * LVEF 55%. * Normal LV chamber size and function. * Asymmetric hypertrophy of the basal septum. Mild systolic anterior motion of the MV leaflets. No LVOT obstruction. * Mild left ventricular diastolic dysfunction. * Atypical septal motion consistent with paced rhythm. Right Ventricle * Normal right ventricular structure and function. Left Atrium * Severely dilated left atrium. Right Atrium * Mildly dilated right atrium. Interatrial Septum * Interatrial septum not well evaluated. Aortic Valve * Trileaflet aortic valve. * Mildly sclerotic aortic valve leaflets. * No aortic regurgitation. * No aortic stenosis. Mitral Valve * Normal mitral valve structure and function. * No mitral stenosis. * No mitral regurgitation. Tricuspid Valve * Normal tricuspid valve structure and function. * Trace tricuspid regurgitation. * No evidence of pulmonary hypertension. Pulmonic Valve * Normal pulmonic valve structure and function. * Trace pulmonic regurgitation. Aorta * Normally sized aortic root. Pericardium * The pericardium appears normal. IVC * The IVC is not well evaluated. Pulmonary Artery * Normal visualized portions of the main pulmonary artery. Device lead * A device lead was visualized in the right atrium and right ventricle. Consult Discharge Plan - Plan Referrals: Chelo Juarez MD [Primary Care Provider] - (2) Atrial fibrillation Qualifiers: Atrial fibrillation type: paroxysmal Qualified Code(s): I48.0 - Paroxysmal atrial fibrillation (3) CAD (coronary artery disease) Qualifiers: Coronary Disease-Associated Artery/Lesion type: [place] artery [place] vs. transplanted heart: [place] heart Associated angina: angina presence unspecified Qualified Code(s): I25.10 - Atherosclerotic heart disease of [place] coronary artery without angina pectoris
--- NOTE | 2019-04-07 09:18 | Event Note ---
Date of Encounter: 04/07/19 Time of Encounter: 09:16 - Cardiology Event Note Device interrogated. One mode switch yesterday for 2 seconds. 5 beat run NSVT. No significant A-Fib burden. Given troponin 0.27/0.34 [facility], 0.17, 0.12 and no significant A-Fib burden on device check to explain troponin elevation, recommend LHC. R/B/A discussed. Pt agrees to proceed.
[2019-04-07] MEDS ORDERED: 0.9 % Sodium Chloride 1,000 ML ONE ×2 (11:31→11:40)
[2019-04-07] MEDS ORDERED: *HR* Heparin 10,000 UNIT/10 ML VIAL ONE (11:31)
[2019-04-07] MEDS ORDERED: Heparin 1,000 UNITS/500 mL 500 ML ONE (11:31)
[2019-04-07] MEDS ORDERED: ISOVUE-370 200 ML INFUS..BTL ONE (11:32)
[2019-04-07] MEDS ORDERED: Nitroglycerin 1,000 MCG/10 ML VIAL IV ONE (11:32)
--- NOTE | 2019-04-07 11:43 | Pre-Sedation Evaluation ---
Pre-sedation evaluation - Pre-sedation checklist Date of procedure: 04/07/19 Procedure: heart cath Recent Vitals: Last Vital Signs Temp 97.9 F 04/07/19 07:14 Pulse 66 04/07/19 07:14 Resp 14 04/07/19 07:14 BP 101/59 04/07/19 07:14 Pulse Ox 94 04/07/19 07:14 H&P (including ROS) documented in medical record: Yes Previous reaction to sedatives/anesthetics: No Dietary Status: NPO after Midnight Airway Assessment: Patient can open mouth completely, TMJ function normal, Micrognathia (under-bite, receding chin) absent, Neck with adequate range of motion Dentition: No loose teeth or bridges Possible difficult airway: No ASA Classification *see protocol: CLASS II-Mild systemic disease Plan of Care: Pt appropriate candidate for procedure/moderate/conscious sedation, Risks/benefits of procedure/sedation discussed w/ patient/family Cardiac Registry (Cardio Only) - Functional Capacity Functional Capacity: < 4 METS - Clincal Frailty Scale Clinical Frailty Scale: Vulnerable
[2019-04-07] MEDS ORDERED: *HR* Midazolam HCl 2 MG/2 ML VIAL ONE (11:45)
[2019-04-07] MEDS ORDERED: *HR* FentaNYL (PF) 100 MCG/2 ML VIAL ONE (11:45)
--- NOTE | 2019-04-07 12:21 | Event Note ---
Date of Encounter: 04/07/19 Time of Encounter: 12:19 - Cardiology Event Note [facility] normal coronaries. No intervention. Stop heparin gtt. Resume Xarelto for PAF. Cardiology signing off. Reconsult PRN. Will coordinate outpt follow-up in 3-4 weeks.
[2019-04-07] MEDS ORDERED: 0.9 % Sodium Chloride 1,000 ML IVC SCH (12:30)
--- NOTE | 2019-04-07 12:30 | Invasive Diagnostic Lab Proc ---
Name: Vannessa Haley Date of Study: 04/07/2019 Date: 1965 Ht: 66.9in Medical Record#: [id number] Age: 53 Wt: 246.92lb Gender: Female BSA: 2.21 Order #: [id number] BMI: 38.75 Physicians Procedure Physician: Simi Villasenor MD, [facility] Referring MD: Referring MD: Staff Name Position Time In Gabby, Mendoza RN Monitor 11:48 AM Danielito Bryan RN Molding Supervisor 11:48 AM Mandy Tam RT (R) Scrub 11:48 AM Simi Gonzalez RT (R) Scrub orientee 11:49 AM Indications Indication Non-Stemi Procedures Performed Procedure L HRT ARTERY/VENTRICLE ANGIO Pre-Procedure Checklist Informed consent is complete signed and on chart. H&P is on chart. ID band is on and ID verified with patient. Patient NPO for procedure The procedure was described for the patient and questions were answered. Blood Pressure: 101/59 ECG is on chart. Rhythm: NSR Plan of Care Patient will tolerate the procedure without complications. Adequate level of comfort will be maintained. Hemodynamics will remain stable Patient will recover from procedure without complications. Respiratory function will be maintained. Cardiac rhythm will remain stable. Patient temperature will be maintained. Patient and/or family have verbalized understanding of the procedure. Patient Education Chief Complaint/Reason for Test: Cardiac Cath Developmental Category: Adult (18-64 years) Developmentally Appropriate for Age: Yes Learning Barriers: None Education Needs: Procedure Education Method: Verbal Information Taught: Cardiac Cath Educational Evaluation: Able to repeat information Intravenous Access Time IV Size Location DC'd Fluid/Drip Rate Units RN 20g 1 1/4" Patent On Arrival Rt Arm 0.9NaCl Allergies ciprofloxacin optiform walnut Cephalosporin Opioid cephalexin codeine Opioids - Morphine Analogues Cephalosporins Vital Signs Time BP (mmHg) HR (bpm) O2 Sat. RR (bpm) LOC 11:49 AM / % 5 = Fully awake and oriented or at pre-proc level 11:49 AM / % 4 = Oriented but drowsy 12:05 PM / % 4 = Oriented but drowsy 11:55 AM 121 / 67 64 100 % 13 12:00 PM 116 / 69 68 95 % 12 12:05 PM 116 / 73 73 96 % 13 12:10 PM 117 / 72 74 99 % 16 12:15 PM 119 / 67 67 100 % 15 Procedural Medications Time Medication Dose Units Method Given By 11:49 AM Oxygen 2 L/min nasal cannula Danielito Bryan RN 11:58 AM Versed 2 mg Intravenous Danielito Bryan RN 11:58 AM Fentanyl 50 mcg Intravenous Danielito Bryan RN 12:03 PM Lidocaine 2% 18 ml Subcutaneous Simi Villasenor MD, [facility] ASA Classification: CLASS II- Mild systemic disease (i.e. well-controlled diabetes, hypertension, asthma, cigarette smoking) Shankar Score Preprocedure Postprocedure Activity 2- Moves 4 extremities sustained head lift Activity 2- Moves 4 extremities sustained head lift Circulation 2- SBP +/= 20 points of pre-anesthetic level Circulation 2- SBP +/= 20 points of pre-anesthetic level Consciousness 2- Awake and alert oriented x 3 Consciousness 2- Awake and alert oriented x 3 O2 Saturation 2- Able to maintain O2 satruation of 92% on room air O2 Saturation 2- Able to maintain O2 satruation of 92% on room air Respiratory 2- Able to deep breathe and cough well Respiratory 2- Able to deep breathe and cough well Total Score 10 Total Score 10 Contrast Agent: Isovue Diagnostic Contrast: 64 ml Total Contrast: 64 ml Fluoro Dose: 25 mGy Procedure Log Time Note Enter By 11:42 AM CathStat 11:48 AM Pt arrived to bolt labeler 2 at 11:48 tsites 11:48 AM Mendoza Pierre RN Position: Monitor Time in: 11:48 tsites 11:48 AM Danielito Bryan RN Position: Molding Supervisor Time in: 11:48 tsites 11:49 AM Mnady Tam RT (R) Position: Scrub Time in: 11:48 tsites 11:49 AM Simi Gonzalez RT (R) Position: Scrub orientee Time in: 11:49 tsites 11:49 AM Patient charges- Angio tray pack, Navilyst 3mm J, Pulse Oximetry and ACIST tubing and transducer tsites 11:49 AM Hair removed from procedure site in procedure lab using clippers. Bilateral groin prepped with Chloraprep by Mendoza Pierre RN, then patient was draped. Skin intact. tsites 11:49 AM Physician arrived 11:49 tsites 11:49 AM Meet and greet completed tsites 11:49 AM Sign in performed according to hospital policy. Informed consent was obtained. tsites 11:49 AM Procedure start 11:49 tsites 11:49 AM Time: 11:49 Oxygen on at 2 L/min per nasal cannula by Danielito Bryan RN tsites 11:49 AM Time: 11:49 Patient comfortable and pain free: Yes tsites 11:49 AM Time: 11:49LOC: 5 = Fully awake and oriented or at pre-proc level tsites 11:50 AM [ Start or Stop Vital ] 11:50 AM Clinical Presentation: Non-STEMI tsites 11:54 AM Vitals capture started with the following parameters, Patient=Adult, Interval=5 min, Initial Vplfuyfd=516 mmHg, Deflation Rate=5 mmHg, Cuff placed on Left Arm 11:55 AM HR=64 bpm, KBQF=544/67 mmhg, PwJ2=328.0 %, Resp=13 B/min, Comment=nsr 11:58 AM Time: 11:58 Versed 2 mg Intravenous [facility] 11:58 AM Time: 11:58 Fentanyl 50 mcg Intravenous Given by Danielito Bryan RN tsites 12:00 PM HR=68 bpm, BOPJ=495/69 mmhg, SpO2=95.0 %, Resp=12 B/min, Comment=nsr 12:03 PM Time out was performed according to hospital policy. Conscious sedation and anesthesia was achieved (see medication log with in this report above) tsites 12:03 PM Time: 12:03 18 ml Lidocaine 2% to right groin Subcutaneous Given by Simi Villasenor MD, [facility] tsites 12:03 PM Access obtained by percutaneous puncture. 5Fr 10cm [facility] [place] sheath placed in right Femoral artery. [id number] tsites 12:04 PM Recorded Pressure: Ao, HR=68, Condition=Condition 1 (Aorta) Ao 111/79/93 12:04 PM Time: 11:49 Patient comfortable and pain free: Yes tsites 12:05 PM Time: 11:49LOC: 4 = Oriented but drowsy tsites 12:05 PM 5Fr FL 4 catheter inserted over the wire [facility] tsites 12:05 PM LCA angiography performed in multiple views. tsites 12:05 PM HR=73 bpm, PDBI=334/73 mmhg, SpO2=96.0 %, Resp=13 B/min, Comment=nsr 12:05 PM Catheter removed tsites 12:06 PM 5Fr FR 4 catheter inserted over the wire DN tsites 12:06 PM Recorded Pressure: Ao, HR=71, Condition=Condition 1 (Aorta) Ao 120/76/96 12:07 PM RCA angiography performed in multiple views. tsites 12:07 PM Catheter removed tsites 12:07 PM 5Fr Pigtail catheter inserted over the wire [facility] tsites 12:08 PM Pressure channel 1 zero failed. 12:08 PM Pressure channel 1 zeroed. 12:08 PM Catheter crossed the aortic valve and was selectively placed in the left ventricle. Pressures recorded on pullback for left heart catheterization. tsites 12:08 PM Recorded Pressure: LV, HR=74, Condition=Condition 1 (Left Ventricle) LV 124/-6/20 12:09 PM Recorded Pressure: LV, Ao, HR=77, Condition=Condition 1 (Left Ventricle) LV 118/32/40, (Aorta) Ao 116/83/99 12:09 PM Bolus angiogram of left Ventricle complete: 8 ml/sec for a total of 24 mls tsites 12:09 PM Catheter removed tsites 12:09 PM Wire removed tsites 12:09 PM Bolus angiogram of right Femoral complete: 4 ml/sec for a total of 7 mls tsites 12:09 PM Recorded Pressure: Ao, HR=77, Condition=Condition 1 (Aorta) Ao 134/66/92 12:10 PM HR=74 bpm, KHUP=071/72 mmhg, SpO2=99.0 %, Resp=16 B/min, Comment=nsr 12:10 PM Coronary Dominance: Left tsites 12:11 PM Procedure completed at 12:11 04/07/2019 tsites 12:11 PM Did you address NIRMAL flow and Dominance? YesCoronary Dominance: Left tsites 12:12 PM Sign out completed: Radiation Dose 181.83 mGy, 25.1 Gy/cm2 Fluoro Time: 1.3 Isovue 370 - 200ml contrast 64 ml given by Simi Villasenor MD, [facility]. Complications: None. The patient was discharged out of the hemodialysis lab technician in stable condition. Sedation minutes 14. Cardiac Rehab Consult needed: No. Confirmed administered medications: Yes tsites 12:13 PM Isovue 370 - 200ml,1 Bottle(s) used. tsites 12:13 PM Arterial sheath pulled, Mynx closure device used and was Successful [id number] S/N. tsites 12:13 PM Estimated Blood Loss: minimal tsites 12:13 PM Post ECG NSR tsites 12:14 PM Post Blood Pressure 101/59 tsites 12:14 PM 12:14 Post Pulses Bilateral radial 2+ tsites 12:14 PM 12:14 Post Pulses Lt DP 1+ tsites 12:14 PM Information taught Cardiac Cath and Mynx tsites 12:14 PM Education needs Procedure, Plan of Care, and Responsibilities of Patient in Care tsites 12:14 PM Learning barriers :None tsites 12:14 PM Education Methods Verbal tsites 12:14 PM Education evaluation Able to repeat information tsites 12:15 PM Site status No bleeding/hematoma - Rt Groin as reported by Sites, Mandy RT (R) at 12:14 tsites 12:15 PM Opsite applied tsites 12:15 PM Plavix, Effient or Brilinta given No tsites 12:15 PM No family present at this time. tsites 12:15 PM Complications: None tsites 12:15 PM HR=67 bpm, WKMN=700/67 mmhg, VzS7=069.0 %, Resp=15 B/min, Comment=nsr 12:19 PM Report given to Lani RN Pt taken to 2NE Room #26. 12:19 tsites 12:19 PM Patient out of room: 12:19 tsites 12:19 PM Time: 12:04 Patient comfortable and pain free: Yes tsites 12:20 PM Time: 12:05LOC: 4 = Oriented but drowsy tsites 12:23 PM ASA Class CLASS II- Mild systemic disease (i.e. well-controlled diabetes, hypertension, asthma, cigarette smoking) tsites Complications Complication None None Hemodynamics Pressures Site Systolic/A Wave Diastolic/V Wave Mean AO 111 79 93 AO 120 76 96 LV 124 -6 20 LV 118 32 40 AO 116 83 99 AO 134 66 92 Post Procedure Information Blood Pressure: 101/59 mmHg Rhythm: NSR Post procedural instructions were given Closure Device Time Device Success/Fail 04/07/2019 12:15:00 PM MynxGrip Successful Site Checks Time Location Status Staff Sheath In? Note 12:14 PM Rt Groin No bleeding/hematoma Sites, Mandy RT (R) Pulses Time Site Pre-Procedure Post-Procedure Note 12:14:00 PM Bilateral radial 2+ 12:14:00 PM Lt DP 1+ Updated by Mandy Sites RT (R) on 04/07/2019 12:23:45 PM Mandy Yonatan RT electronically signed on 04/07/2019 12:25:13 PM with status of Final
--- NOTE | 2019-04-07 14:14 | Discharge Summary ---
<Jo Ann Rodarte - Last Filed: 04/07/19 18:12> - NOTES TO OUTPATIENT PROVIDER Notes to Outpatient Provider: Started atorvastatin 40 mg PO daily. Continue Xarelto for Afib. Per cardiology, they will coordinate outpatient follow up in 3-4 weeks. Orders not resulted at time of discharge: Pending orders 04/05/19 21:01 ECG 12 lead ECG [ECG] Routine 04/08/19 08:40 Heparin anti-factor XA UFH [COAG] Timed Date of Encounter: 04/07/19 Time of Encounter: 14:11 - Discharge Diagnosis (1) NSTEMI (non-ST elevated myocardial infarction) Priority: Primary Status: Acute (2) Atrial fibrillation Priority: Secondary Status: Chronic Qualifiers: Atrial fibrillation type: paroxysmal Qualified Code(s): I48.0 - Paroxysmal atrial fibrillation (3) CAD (coronary artery disease) Priority: Secondary Status: Chronic Qualifiers: Coronary Disease-Associated Artery/Lesion type: bel[place]ski artery [place] vs. transplanted heart: belkofski heart Associated angina: angina presence unspecified Qualified Code(s): I25.10 - Atherosclerotic heart disease of [place]ski coronary artery without angina pectoris (4) Pacemaker Priority: Secondary Status: Chronic (5) Morbid obesity Priority: Secondary Status: Chronic (6) Status post amputation of lower extremity Priority: Secondary Status: Chronic Hospital course: Ms. Haley is a 53 year old female with past history of CAD s/p PCI, TX, seizures, COPD, DVT, leti filter, PAF, sarcoidosis, pacemaker, factor V, VT and VT ablation who presented to [facility] from [place] for chest pain. Initial troponin 0.27 at [facility], troponin peaked at 0.34. [facility] EKG reportedly showed LBBB unchanged from previous. On arrival to [facility] troponins downtrended 0.17 to 0.12 and patient started on heparin drip and aspirin; no beta alan due to hypotension. Cardiology was consulted. EKG reviewed by cardiology showed no acute ischemic changes. Echocardiogram 04/06/19 showed LVEF 55%. Pacemaker interrogated due to suspicion for A.fib with RVR and reported HR 120s-130s at home. No significant A.fib bu rden found on device interrogation, a left heart cath was recommended by cardiology and catheterization performed 04/07/19 showed normal coronary arteries, no stents were placed, patient tolerated procedure well. Atorvastatin 40mg was prescribed. Xarelto continued for patient's paroxysmal A.fib as recommended by cardiology. Patient will follow up with cardiology as an outpatient in 3-4 weeks. On discharge, patient hemodynamically stable with HR 60's and BP 120/75. - Time Spent with Patient Total time spent providing and/or coordinating discharge services: - Discharge Medications Prescriptions: New Atorvastatin [Lipitor] 40 mg PO HS #30 tablet Continued Rivaroxaban [Xarelto] 20 mg PO HS Nitroglycerin [Nitrostat] 0.4 mg SL Q5M PRN MDD X3 DOSES CALL 911 PRN Reason: Chest Pain Topiramate [Topamax] 200 mg PO BID Gabapentin [Neurontin] 600 mg PO QAM Cyclobenzaprine HCl 5 mg PO HS PRN PRN Reason: Muscle Spasm Potassium Chloride [Klor-Con 10] 10 meq PO DAILY Pramipexole [Mirapex] 0.25 mg PO QAM Gabapentin [Neurontin] 900 mg PO HS Gabapentin [Neurontin] 600 mg PO QPM Amitriptyline HCl 75 mg PO HS Aspirin Enteric Coated [Aspirin EC] 81 mg PO DAILY DULoxetine [Cymbalta] 30 mg PO BID Omeprazole [PriLOSEC] 20 mg PO BID OxyCODONE/APAP 7.5/325 [Percocet 7.5/325 MG] 1 tab PO Q6H PRN PRN Reason: Pain Propafenone [Rhythmol] 150 mg PO Q8H Discontinued Rosuvastatin Calcium 10 mg PO HS Home Medications: Rivaroxaban [Xarelto] 20 mg PO HS 04/07/18 [History] Nitroglycerin [Nitrostat] 0.4 mg SL Q5M PRN MDD X3 DOSES CALL 911 05/01/18 [History] Topiramate [Topamax] 200 mg PO BID 06/12/18 [History] Cyclobenzaprine HCl 5 mg PO HS PRN 07/10/18 [History] Gabapentin [Neurontin] 600 mg PO QAM 07/10/18 [History] Gabapentin [Neurontin] 600 mg PO QPM 07/10/18 [History] Gabapentin [Neurontin] 900 mg PO HS 07/10/18 [History] Potassium Chloride [Klor-Con 10] 10 meq PO DAILY 07/10/18 [History] Pramipexole [Mirapex] 0.25 mg PO QAM 07/10/18 [History] Amitriptyline HCl 75 mg PO HS 04/07/19 [History] Aspirin Enteric Coated [Aspirin EC] 81 mg PO DAILY 04/07/19 [History] Atorvastatin [Lipitor] 40 mg PO HS #30 tablet 04/07/19 [Rx] DULoxetine [Cymbalta] 30 mg PO BID 04/07/19 [History] Omeprazole [PriLOSEC] 20 mg PO BID 04/07/19 [History] OxyCODONE/APAP 7.5/325 [Percocet 7.5/325 MG] 1 tab PO Q6H PRN 04/07/19 [History] Propafenone [Rhythmol] 150 mg PO Q8H 04/07/19 [History] Allergies/Adverse Reactions: Allergy/AdvReac Type Severity Reaction Status Date / Time walnut Allergy Severe Difficulty Verified 04/07/19 14:05 Breathing cephalexin AdvReac Nausea Verified 04/07/19 14:05 codeine AdvReac Itching Verified 04/07/19 14:05 optiform AdvReac Blister Uncoded 04/07/19 14:05 Date of admission: 04/05/19 21:08 Primary care physician: Chelo Juarez MD Consults: 04/05/19 21:02 Consult to Cardiology [CONS] Routine Comment: Consulting Provider: Cardiology [facility] Reason for Consult: patient with a history of CAD and v-tach s/p ICD and ablation presenting with chest pain and elevated troponins Call Completed: Yes Discharging clinician: Jo Ann Rodarte Anticipated date of discharge: 04/07/19 - Constitutional Vitals: Temp Pulse Resp BP Pulse Ox 97.9 F 66 14 101/59 94 04/07/19 07:14 04/07/19 07:14 04/07/19 07:14 04/07/19 07:14 04/07/19 07:14 Exam: Gen.: Vitals noted. No acute distress. HEENT: Normocephalic, atraumatic Cardiac: RRR, no murmur, +S1/S2 Pulmonary: CTA bilaterally, no wheezes, rales or rhonchi, equal chest expansion Abdomen: soft, nontender, Bowel sounds noted, no guarding MSK: no joint swelling noted Extremities: R groin cath site is soft, nontender, and no evidence of active bleeding; no LE edema, no cyanosis or clubbing, right BKA Neuro: AAOx3, moves all extremities, no focal deficits Psych: Appropriate mood and behavior - Patient Status Disposition: Home, Self-Care Condition: Good Overall status at discharge: patient is progressing back to baseline - Discharge Instructions Instructions: Left Heart Catheterization (DC) Follow Up With: Chelo Juarez MD [Primary Care Provider] - Marciano Hassan CNP [Advanced Practice Nurse] - - Diet and Activity Activity: resume usual activities as tolerated Diet: low fat, low cholesterol, low salt diet <Christian Smith - Last Filed: 04/07/19 22:46> Orders not resulted at time of discharge: Pending orders 04/05/19 21:01 ECG 12 lead ECG [ECG] Routine Date of Encounter: 04/07/19 - Discharge Diagnosis (1) CAD (coronary artery disease) Status: Chronic Qualifiers: Coronary Disease-Associated Artery/Lesion type: [place]ski artery [place] vs. transplanted heart: belk[place]ski heart Associated angina: angina presence unspecified Qualified Code(s): I25.10 - Atherosclerotic heart disease of [place] coronary artery without angina pectoris (2) Pacemaker Status: Chronic (3) Morbid obesity Status: Chronic (4) DVT prophylaxis Status: Acute (5) Status post amputation of lower extremity Status: Chronic (6) Atrial fibrillation Status: Chronic Qualifiers: Atrial fibrillation type: paroxysmal Qualified Code(s): I48.0 - Paroxysmal atrial fibrillation (7) NSTEMI (non-ST elevated myocardial infarction) Status: Acute Hospital course: Ms. Haley is a 53 year old female - Time Spent with Patient Total time spent providing and/or coordinating discharge services: Date of admission: 04/05/19 21:08 Primary care physician: Chelo Juarez MD Consults: 04/05/19 21:02 Consult to Cardiology [CONS] Routine Comment: Consulting Provider: Cardiology [facility] Reason for Consult: patient with a history of CAD and v-tach s/p ICD and ablation presenting with chest pain and elevated troponins Call Completed: Yes - Constitutional Vitals: Temp Pulse Resp BP Pulse Ox 97.9 F 63 14 121/75 100 04/07/19 07:14 04/07/19 14:15 04/07/19 07:14 04/07/19 14:15 04/07/19 12:45 - Attending Attestation I examined this patient and my medical decision-making was reviewed with the Resident Physician. I agree with the documented findings, disposition and treatment plan as described except to the extent set forth below.
[2019-04-07 14:23] VITALS: BP 121/75
[2019-04-07] MEDS ORDERED: *HR* Rivaroxaban 10 MG TABLET PO SCH (17:00)
== END 2019-04-07 16:07 | disposition home or self-care (01) | DRG 281 ==
LOC: ICNU → SUATTDRO 21:08 → 2NENU 21:37
PROVIDERS: ADMIT Internal Medicine Nephrology; ATTEND Student in an Organized Health Care Education/Training Program

== ENCOUNTER 2019-04-21 18:45 | Inpatient (IN) ==
[2019-04-21] MEDS ORDERED: Naloxone 0.4 MG/ML INJ IVP PRN (21:18)
--- NOTE | 2019-04-21 21:18 | Internal Med History&Physical ---
<Giovani Valiente A - Last Filed: 04/21/19 23:26> Date of Encounter: 04/21/19 Time of Encounter: 21:18 Internal Medicine - H&P: HPI Chief complaint: Chest pain History of present illness: Ms. Haley is a 53 year old female with extensive past medical history including COPD, congestive heart failure, coronary artery disease, factor V Leiden, Michael filter placed approximately 7 years ago, paroxysmal atrial fibrillation status post 2 ablations and pacemaker, and sarcoidosis status post right lower lobectomy. She originally presented to [facility] ED earlier this evening complaining of shortness of breath, and chest pain which started at approximately 9 PM the previous evening. She reported the chest pain was sharp and located in the center and radiated to left upper chest. She denies any fever, chills, increased sputum production, or cough. She does report that she had a cardiac catheter 2 weeks ago. While in [facility] ED she was found to be in ventricular tachycardia with hypotension reported BPs 50s/30s. She was subsequently cardioverted into normal sinus rhythm. Initial troponin was negative. BNP was elevated to nearly 23,000. She was started on amiodarone drip, given 40 mg IV Lasix, and Meek catheter was placed. On evaluation here at [facility], patient reports her chest pain has resolved at this time. She states she feels significantly better since cardioverted at [facility]. She is currently on supplemental oxygen, but denies requiring this at home. States she does not follow any fluid restricted, or salt restricted diet. Repor she took her last dose of Xarelto yesterday evening. Past Med Surg Social Fam HX - Past Medical History Medical history: arthritis, atrial fibrillation, cardiomyopathy, COPD, coronary artery disease, DVT, kidney stones, myocardial infarction, pulmonary embolus, seizures, other Additional medical history: factor V, michael filter, MRSA, sarcoid, Pacemaker, blood thinners Psychiatric history: no psych history - Past Surgical History Surgical History: angioplasty/stent, appendectomy, cholecystectomy, herniorrhaphy, hip replacement, hysterectomy, knee replacement, orthopedic, other, other, bariatric surgery, IVC filter, pacemaker Additional surgical history: debridement,kidney stone/stent,heart ablation, gas tric bypass, skin removal , right lower lobe removed, tonsillectomy and adenoidectomy, stent placed in kidney, kidney stone removal, left tibia extensive irrigation and debridement removal of hardware, R leg I&D wound closure - Social History Smoking Status: Never smoker Smokeless Tobacco Status: No Alcohol use: none Drug use: none - Family History Father Living Status: Hx Family Cardiac Disorders: Yes (CHF) Hx Family Respiratory Disorders: No Hx Family Cancer: No Hx Family Endocrine Disorder: No Hx Family Neuromuscular Disorders: No Hx Family Neurologic Disorders: No Hx Family HEENT Disorders: No Hx Family Autoimmune Disorders: No Sister Living Status: Still Living Hx Family Cardiac Disorders: Yes Hx Family Respiratory Disorders: No Hx Family Cancer: Yes Hx Family Endocrine Disorder: Yes Mother Living Status: Hx Family Cardiac Disorders: No Hx Family Respiratory Disorders: No Hx Family Cancer: Yes (kidney) Hx Family GI Disorders: No Hx Family Endocrine Disorder: Yes (DM) Hx Family Neuromuscular Disorders: No Hx Family Neurologic Disorders: No Hx Family HEENT Disorders: No Hx Family Autoimmune Disorders: No Internal Medicine - H&P: Meds Rivaroxaban [Xarelto] 20 mg PO HS 04/07/18 [History] Nitroglycerin [Nitrostat] 0.4 mg SL Q5M PRN MDD X3 DOSES CALL 911 05/01/18 [History] Topiramate [Topamax] 200 mg PO BID 06/12/18 [History] Cyclobenzaprine HCl 5 mg PO HS PRN 07/10/18 [History] Gabapentin [Neurontin] 600 mg PO QAM 07/10/18 [History] Gabapentin [Neurontin] 600 mg PO QPM 07/10/18 [History] Gabapentin [Neurontin] 900 mg PO HS 07/10/18 [History] Potassium Chloride [Klor-Con 10] 10 meq PO DAILY 07/10/18 [History] Pramipexole [Mirapex] 0.25 mg PO QAM 07/10/18 [History] Amitriptyline HCl 75 mg PO HS 04/07/19 [History] Aspirin Enteric Coated [Aspirin EC] 81 mg PO DAILY 04/07/19 [History] Atorvastatin [Lipitor] 40 mg PO HS #30 tablet 04/07/19 [Rx] DULoxetine [Cymbalta] 30 mg PO BID 04/07/19 [History] Omeprazole [PriLOSEC] 20 mg PO BID 04/07/19 [History] OxyCODONE/APAP 7.5/325 [Percocet 7.5/325 MG] 1 tab PO Q6H PRN 04/07/19 [History] Propafenone [Rhythmol] 150 mg PO Q8H 04/07/19 [History] Allergy/AdvReac Type Severity Reaction Status Date / Time walnut Allergy Severe Difficulty Verified 04/07/19 14:05 Breathing cephalexin AdvReac Nausea Verified 04/07/19 14:05 codeine AdvReac Itching Verified 04/07/19 14:05 optiform AdvReac Blister Uncoded 04/07/19 14:05 All Systems PM: A 10-system review of systems was performed and is negative for pertinent findings except as documented above in the HPI. - Constitutional Constitutional: no chills, no fever(s), no falls - EENT Eyes: no blurry vision, no change in vision - Cardiovascular Cardiovascular ROS IM: chest pain, dyspnea, no diaphoresis, no edema, no lightheadedness, no syncope - Respiratory Respiratory: dyspnea, no cough, no wheezing, no chest congestion, no excessive phlegm production, no change in phlegm color - Gastrointestinal Gastrointestinal: no abdominal pain, no diarrhea, no heartburn, no nausea, no vomiting - Musculoskeletal Musculoskeletal ROS IM: no numbness, no tingling - Integumentary Integumentary IM: no erythema, no new lesions, no unusual bruising, no jaundice - Neurological Neurological ROS: no confusion, no dizziness, no numbness, no vertigo, no weakness - Constitutional General appearance: Present: A&O X 3, morbidly obese, pleasant, no acute distress, answers questions appropriately Exam: Constitutional: Obese female in no acute distress Head: Normocephalic, atraumatic Eyes: PERRL, EOMI, conjunctiva pink, sclera anicteric Neck: trachea midline, no lymphadenopathy Lungs: Clear to auscultation bilaterally. Nonlabored breathing on 2lpm supplemental O2. No wheezes, rales, or rhonchi noted. Cardiac: RRR. +s1 +s2. No murmurs, clicks, or rubs noted. GI: Abdomen soft, nontender, nondistended. Extremities: Warm, radial pulses palpable and symmetrical. Right sided remote below the knee amputation. No cyanosis, pedal edema, or calf tenderness. Neuro: Alert and oriented 3. No focal deficits. Normal speech. Skin: Warm, dry, and intact. Internal Med - H&P Results - Labs CBC & Chem 7: 04/21/19 21:54 04/21/19 21:54 - Assessment and Plan (1) CHF exacerbation Current Visit: Yes Status: Acute Assessment and plan: Echocardiogram from 04/06/19: - LVEF 55% - Asymmetric hypertrophy of the basal septum - Mild systolic anterior motion of the mitral valve leaflets. No LVOT obstruction - Mild LV diastolic dysfunction - Atypical septal motion consistent with paced rhythm - Normal right ventricular structure and function - No evidence of pulmonary hypertension Patient reports following no fluid restricted or salt restricted diet at home. Is not on any home Lasix. Received 40 mg IV Lasix at [facility] ED Meek catheter is in place Plan: - Strict I&O's - Cardiac diet with fluid restriction 1.5 L - Anticipate patient will need further diuresis, however will defer until the morning after cardiology has evaluated patient for ventricular tachycardia. Qualifiers: Heart failure type: diastolic Qualified Code(s): I50.33 - Acute on chronic diastolic (congestive) heart failure (2) CAD (coronary artery disease) Current Visit: Yes Status: Chronic Assessment and plan: Patient reports history of previous PR, however cardiac catheter report from 04/07/19 shows coronary arteries that are angiographically normal Qualifiers: Coronary Disease-Associated Artery/Lesion type: [place] artery [place] vs. transplanted heart: [place] heart Associated angina: angina presence unspecified Qualified Code(s): I25.10 - Atherosclerotic heart disease of [place] coronary artery without angina pectoris (3) COPD (chronic obstructive pulmonary disease) Current Visit: Yes Status: Chronic Assessment and plan: Does not appear to be in acute exacerbation at this time. Shortness of breath likely related to CHF exacerbation. Supplemental O2 as above - pt is not on supplemental o2 at home Prn albuterol Qualifiers: COPD type: unspecified COPD Qualified Code(s): J44.9 - Chronic obstructive pulmonary disease, unspecified (4) Factor 5 Leiden mutation, heterozygous Current Visit: Yes Status: Chronic Assessment and plan: Reports compliance with her Xarelto and Aspirin regimen at home Will place on Heparin drip at this time as above (5) Status post amputation of lower extremity Current Visit: Yes Status: Chronic Assessment and plan: Hx of AKA on right LE (6) Pacemaker Current Visit: Yes Status: Chronic (7) DVT prophylaxis Current Visit: Yes Status: Acute Assessment and plan: On Heparin drip (8) Ventricular tachycardia Current Visit: Yes Status: Resolved Assessment and plan: Patient was found to have ventricular tachycardia in [facility] ED. Was cardiover johan for concomitant hypotension Successfully cardioverted to normal sinus rhythm Patient was placed on an amiodarone drip [facility] reportedly spoke with Dr. Calle Initial troponin from [facility] negative Plan: - Continue to monitor on telemetry - Trend troponins - Repeat EKG - Continue amiodarone drip - Consult cardiology - NPO after midnight - We will start heparin drip with concern for possible thromboembolic event related to factor V Leiden - Time Spent With Patient Total time spent is greater than 50% in coordination of care (as documented) at patient's floor/unit and/or counseling patient: <Winston Hagen - Last Filed: 04/22/19 00:16> Date of Encounter: 04/21/19 Time of Encounter: 22:10 Internal Medicine - H&P: HPI Admitted From: Hospital to Hospital Transfer Plans for Post Hospital Care: Home - Constitutional Constitutional: no chills, no fever(s) - EENT Eyes: no blurry vision Ears: no ear pain, no tinnitus Nose, mouth and throat: no nasal congestion, no sinus pressure, no sore throat - Cardiovascular Cardiovascular ROS IM: chest pain, dyspnea, dyspnea on exertion, irregular heart rhythm, palpitations - Respiratory Respiratory: dyspnea, no hemoptysis - Gastrointestinal Gastrointestinal: no diarrhea, no vomiting - Genitourinary Genitourinary: no dysuria, no flank pain - Musculoskeletal Musculoskeletal ROS IM: no arthralgias, no back pain - Integumentary Integumentary IM: no rash - Neurological Neurological ROS: no disequilibrium, no focal weakness, no frequent falls, no headache(s) - Psychiatric Psychiatric: no anxiety, no depression - Endocrine Endocrine IM: no polydipsia, no polyuria - Allergic/Immunologic Allergic/Immunologic: no GI upset with certain foods - Constitutional Vitals: Pulse Resp BP Pulse Ox 103 22 112/75 98 04/21/19 23:00 04/21/19 23:00 04/21/19 23:00 04/21/19 23:00 General appearance: Present: A&O X 3, pleasant, no acute distress, answers questions appropriately Exam: Currently with 1 out of 10 chest pain compared to 10 out of 10 chest pain upon presentation to [facility]. - Head Head exam: Present: atraumatic, normal inspection - Eye Eye exam: Present: EOMI, PERRL. Absent: scleral icterus Pupils: Present: normal accommodation - ENT ENT exam: Present: mucous membranes dry, normal exam, normal oropharynx - Neck Neck exam general surgery: Present: full ROM, supple. Absent: tenderness, nuchal rigidity, thyromegaly - Respiratory Respiratory exam: Present: chest wall tenderness (mild), CTAB. Absent: rales, respiratory distress, rhonchi, wheezes - Cardiovascular Cardiovascular exam: Present: distant heart sounds, RRR, +S1, +S2. Absent: diastolic murmur, systolic murmur Additional comments: palpable, non-tender, pacer in left upper chest - GI/Abdominal GI/Abdominal exam: Present: normal bowel sounds, soft. Absent: guarding, hepatomegaly, mass, rebound, splenomegaly, tenderness - Extremities Exam Extremities exam: Present: full ROM, normal capillary refill, warm, radial pul ses palpable and symmetrical. Absent: calf tenderness, pedal edema Additional comments: BKA - Back Exam Back exam: Absent: CVA tenderness (L), CVA tenderness (R) - Neurological Exam Neurological exam: Present: alert, CN II-XII intact, oriented X3, no focal deficits - Psychiatric Psychiatric exam: Present: normal affect, normal mood - Skin Skin exam: Present: dry, intact, warm Internal Med - H&P Results - Labs CBC & Chem 7: 04/21/19 21:54 04/21/19 21:54 Labs: Short CBC 04/21/19 Range/Units 21:54 WBC 10.2 (4.3-11.1) K/mcL Hgb 12.0 (11.5-15.4) g/dL Hct 37.0 (35.3-44.9) % Plt Count 127 L (140-400) K/mcL Neutrophils # 7.9 (1.6-8.9) K/mcL BMP 04/21/19 21:54 Sodium 137 Potassium 3.6 Chloride 105 Carbon Dioxide 23 BUN 32 H Creatinine 0.99 Glucose 115 H Calcium 8.9 Cardiac Enzymes 04/21/19 Range/Units 21:54 Troponin I 0.05 H* (< 0.04) ng/mL - EKG Data -: EKG Interpreted by Myself EKG shows normal: sinus rhythm - EKG Data Prior EKG available for review: no EKG comments: 04/22/19 00:[address] elevation noted in V2 and V3 -- I called and reviewed EKG findings with Dr. Giraldo (interventional Cardiology), and he does not feel findings are consistent w STEMI. - Assessment and Plan (1) CAD (coronary artery disease) Current Visit: Yes Status: Chronic Qualifiers: Coronary Disease-Associated Artery/Lesion type: [place] artery [place] vs. transplanted heart: [place] heart Associated angina: angina presence unspecified Qualified Code(s): I25.10 - Atherosclerotic heart disease of [place] coronary artery without angina pectoris (2) Pacemaker Current Visit: Yes Status: Chronic (3) Factor 5 Leiden mutation, heterozygous Current Visit: Yes Status: Chronic (4) COPD (chronic obstructive pulmonary disease) Current Visit: Yes Status: Chronic Qualifiers: COPD type: unspecified COPD Qualified Code(s): J44.9 - Chronic obstructive pulmonary disease, unspecified (5) DVT prophylaxis Current Visit: Yes Status: Acute (6) Status post amputation of lower extremity Current Visit: Yes Status: Chronic (7) CHF exacerbation Current Visit: Yes Status: Acute Qualifiers: Heart failure type: diastolic Qualified Code(s): I50.33 - Acute on chronic diastolic (congestive) heart failure (8) Ventricular tachycardia Current Visit: Yes Status: Resolved - Time Spent With Patient Total time spent is greater than 50% in coordination of care (as documented) at patient's floor/unit and/or counseling patient: - Attending Attestation I discussed the patient KIVALINA, past medical history, review of systems, lab data, imaging data, and exam findings with Dr. Valiente. I then saw and examined patient independently as well in the ICU and discussed with patient and her at length her history and clinical course. Patient had recent heart catheterization roughly 2 weeks ago which documented normal coronary arteries. However, she presented to [facility] today with chest pain, pressure, shortness of breath, diaphoresis, palpitations, and unstable ventricular tachycardia requiring cardioversion. After her cardioversion, her chest pain almost completely resolved. Unfortunately, there are no EKGs forwarded to us from [facility]. They only sent us copies of her rhythm strips prior to and after cardioversion. We therefore ordered STAT EKG upon arrival, and I reviewed EKG personally. I was concerned that she may have some subtle ST elevation in leads V2 and V3. I therefore contacted Dr. Giraldo and discussed the case with him by telephone, and he reviewed EKG as well. He does not feel she has a STEMI. Currently she is almost completely chest pain-free. She is hemodynamically stable. She remains on amiodarone drip as recommended earlier by cardiology. Additionally, we will keep her on anti-coagulation with heparin drip, make her nothing by mouth, and consult cardiology to see her in the morning for further workup and interventional process if necessary. I discussed the above with the patient and her at length. Furthermore, they have an 8 month old baby present in the room. I recommended that baby be taken home by either her and/or a family member so as to minimize risk to the baby. Other than my comments above and documented exam findings, I agree with Dr. Valiente's assessment and plan.
[2019-04-21] MEDS ORDERED: *HR* Heparin 5,000 UNIT/ML VIAL IVP PRN ×4 (22:03→22:19)
[2019-04-21] MEDS ORDERED: *HR* Heparin 5,000 UNIT/ML VIAL IVP ONE ×2 (22:03→22:19)
[2019-04-21] MEDS ORDERED: Amiodarone Premix 360 MG/200 ML BAG IVC ONE (22:13)
[2019-04-21] MEDS ORDERED: Heparin 25,000 UNIT/250 ML D5W 25,000 UNIT/250 ML IV.SOLN IVC SCH (22:15)
[2019-04-21 22:37] LABS: Basophils % 0.3 %; Eosinophils % 0.1 %; Immature Granulocytes % 0.7 % (0-4); Lymphocytes # 1.4 K/mcL (0.6-4.6); Mean Corpuscular HGB Conc 32.4 g/dL (31.6-35.5); Mean Corpuscular Hemoglobin 32.3 pg (28.0-33.3); Mean Corpuscular Volume 99.5 fL (83.0-100.0); Mean Platelet Volume 9.5 fL (9.4-12.4); Monocytes # 0.8 K/mcL (0.0-1.3); Monocytes % 8.2 %; Neutrophils # 7.9 K/mcL (1.6-8.9); Platelet Count 127 K/mcL (140-400); Red Blood Count 3.72 M/mcL (3.82-4.97); Red Cell Distribution Width 13.4 % (11.5-14.5); Segmented Neutrophils % 76.7 %; White Blood Count 10.2 K/mcL (4.3-11.1)
[2019-04-21 22:50] LABS: Heparin anti-factor XA UFH 0.31 IU/mL (0.30-0.70); INR 1.2; Prothrombin Time 13.3 Seconds (9.4-12.1)
[2019-04-21 22:58] LABS: BUN/Creatinine Ratio 32 (6-26); Blood Urea Nitrogen 32 mg/dL (6-20); Calcium 8.9 mg/dL (8.6-10.3); Carbon Dioxide 23 mEq/L (23-29); Chloride 105 mEq/L (98-107); Glucose 115 mg/dL (70-105); Osmolality,Calculated 292 (280-300); Potassium 3.6 mEq/L (3.5-5.1); Sodium 137 mEq/L (136-145); eGFR For African Americans > 60 (> 60); eGFR For Non-African Americans 59 (> 60)
[2019-04-21] MEDS: Amiodarone Premix 360 MG/200 ML BAG IVC SCH (23:23)
[2019-04-21] MEDS: Heparin 25,000 UNIT/250 ML D5W 25,000 UNIT/250 ML IV.SOLN IVC SCH (23:24)
[2019-04-22] MEDS: Topiramate 100 MG TABLET PO SCH ×2 (00:06→08:57)
[2019-04-22 04:52] LABS: Basophils % 0.4 %; Eosinophils % 0.4 %; Hemoglobin 10.5 g/dL (11.5-15.4); Immature Granulocytes % 0.5 % (0-4); Lymphocytes # 1.5 K/mcL (0.6-4.6); Lymphocytes % 18.8 %; Mean Corpuscular HGB Conc 31.8 g/dL (31.6-35.5); Mean Corpuscular Volume 100.6 fL (83.0-100.0); Monocytes # 0.7 K/mcL (0.0-1.3); Monocytes % 8.8 %; Neutrophils # 5.8 K/mcL (1.6-8.9); Platelet Count 113 K/mcL (140-400); Red Blood Count 3.28 M/mcL (3.82-4.97); Red Cell Distribution Width 13.2 % (11.5-14.5); Segmented Neutrophils % 71.1 %; White Blood Count 8.1 K/mcL (4.3-11.1)
[2019-04-22 04:57] LABS: INR 1.4; Prothrombin Time 15.8 Seconds (9.4-12.1)
[2019-04-22 05:08] LABS: Alanine Aminotransferase 18 Units/L (7-52); Albumin 3.3 g/dL (3.5-5.7); Albumin/Globulin Ratio 1.4 (1.1-2.2); Alkaline Phosphatase 78 Units/L (34-104); Aspartate Amino Transferase 17 Units/L (13-39); BUN/Creatinine Ratio 32 (6-26); Bilirubin,Total 0.5 mg/dL (0.3-1.0); Blood Urea Nitrogen 29 mg/dL (6-20); Calcium 8.4 mg/dL (8.6-10.3); Carbon Dioxide 21 mEq/L (23-29); Chloride 106 mEq/L (98-107); Globulin 2.4 g/dL (2.4-3.5); Glucose 106 mg/dL (70-105); Magnesium 1.7 mg/dL (1.6-2.6); Osmolality,Calculated 288 (280-300); Phosphorous 3.3 mg/dL (2.7-4.5); Potassium 3.6 mEq/L (3.5-5.1); Sodium 136 mEq/L (136-145); Total Protein 5.7 g/dL (6.4-8.9); eGFR For African Americans > 60 (> 60); eGFR For Non-African Americans > 60 (> 60)
--- NOTE | 2019-04-22 09:07 | Cardiology Consult Note ---
<Khadra Kumar N - Last Filed: 04/22/19 11:35> Date of Encounter: 04/22/19 Time of Encounter: 09:03 Assessment and Plan (1) Arrhythmia Status: Chronic Patient presented initially with palpitations and shortness of breath. She was reported to be in Vtach at [facility], with HR 188 and BP 75/55; she was subsequently cardioverted, after which amiodarone gtt was initiated. Per review of pacemaker interrogation, patient appears to have had some short, 5 -beat runs of ventricular tachycardia; however, she does not appear to have had any prolonged arrhythmias. Patient has extensive cardiac history, including history of arrhythmias, with ablation performed in the past. She underwent an electrophysiology study at [facility] on 11/22/2015, which demonstrated no evidence of residual duel AV raiza physiology and no inducible SVT in baseline. She was subsequently diagnosed with atrial tachycardia by exclusion. Patient's history and findings will be discussed with Dr. Dougherty; recommendations to follow pending his assessment. Qualifiers: Arrhythmia type: unspecified cardiac arrhythmia Qualified Code(s): I49.9 - Cardiac arrhythmia, unspecified (2) Elevated troponin Status: Acute Mild troponin elevation of 0.05, 0.08. Suspect secondary to tachyarrhythmia. (3) CAD (coronary artery disease) Status: Chronic History of mild CAD; LHC performed on demonstrated angiographically normal coronary vasculature. Continue aspirin and statin. Qualifiers: Coronary Disease-Associated Artery/Lesion type: [place] artery [place] vs. transplanted heart: [place] heart Associated angina: angina presence unspecified Qualified Code(s): I25.10 - Atherosclerotic heart disease of [place] coronary artery without angina pectoris (4) Sarcoidosis Status: Chronic Discussion w patient/family: The assessment and plan as outlined above was discussed with the patient and/or family members who expressed understanding and agreement. All questions were answered. Thank you for involving us in the care of your patient. Please call with any questions. History of Present Illness Consult date: 04/21/19 Requesting physician: Giovani Valiente Consult reason: Reported vtach at [facility], s/p cardioversion Chief complaint: Chest pain History of present illness: Ms. Haley is a 53 year old female with an extensive medical history, including atrial fibrillation, cardiomyopathy, COPD, CAD, DVT/PE, factor V Leiden mutation, and sarcoidosis. She presented to [facility] for evaluation of palpitations and shortness of breath that started at approximately 21:00 the night before last. While at [facility], patient was reportedly found to be in ventricular tachycardia with associated hypotension, and underwent cardioversion, after which she was started on an amiodarone gtt. Due to patient history of multiple DVT/PE and factor V Leiden mutation, patient was also started on a heparin gtt. She states that her symptoms resolved after cardioversion, and have not recurred. She denies any chest pain/pressure, ongoing shortness of breath, orthopnea, increased fatigue, or recurrent palpitations. She endorses a history of palpitations, but stated that she has not been experiencing these since her ablation several years ago. She does report worsening left upper and lower extremity swelling over the last several months, as well as left upper extremity numbness. She was transferred to [facility] and admitted to the hospitalist service for ongoing management. Cardiology consult ordered for recommendations regarding arrhythmia/vtach. Prior cardiac testing: * C 04/07/2019: Left ventricle normal with normal contractility EF 55%. Coronary arteries angiographically normal. * Echocardiogram 04/05/2019: LVEF 55%. Normal LV chamber size and function. Asymmetric hypertrophy of the basal septum. Mild systolic anterior motion of the MV leaflets. No LVOT obstruction. Mild left ventricular diastolic dysfunction. Atypical septal motion consistent with paced rhythm. Normal right ventricular structure and function. No evidence of pulmonary hypertension. A device lead was visualized in the right atrium and right ventricle. No significant valvular dysfunction. * Echocardiogram 08/19/2017: LVEF 60%. Normal LV systolic function with regional variation. Mild left ventricular diastolic dysfunction. Normal right ventricular structure and function. Mild chordial MARISOL without LVOTO. Mild tricuspid reurgitation. No pulmonary hypertension. * Stress echocardiogram 08/09/2017: Perfusion imaging negative for ischemia or infarct. Pharmacologic ECG nondiagnostic for ischemia. No chest pain or arrhythmias with stress. Gated EF = 64%. Past Med Surg Social Fam HX - Past Medical History Medical history: arthritis, atrial fibrillation, cardiomyopathy, COPD, coronary artery disease, DVT, kidney stones, myocardial infarction, pulmonary embolus, seizures, other (sarcoidosis) Additional medical history: factor V, leti filter, MRSA, sarcoid, Pacemaker, blood thinners Psychiatric history: no psych history - Past Surgical History Surgical History: angioplasty/stent, appendectomy, cholecystectomy, herniorrhaphy, hip replacement, hysterectomy, knee replacement, orthopedic, other, other, bariatric surgery, IVC filter, pacemaker Additional surgical history: debridement,kidney stone/stent,heart ablation, gastric bypass, skin removal , right lower lobe removed, tonsillectomy and adenoidectomy, stent placed in kidney, kidney stone removal, left tibia extensive irrigation and debridement removal of hardware, R leg I&D wound closure - Social History Smoking Status: Never smoker Smokeless Tobacco Status: No Alcohol use: none Drug use: none - Family History Father Living Status: Hx Family Cardiac Disorders: Yes (CHF) Hx Family Respiratory Disorders: No Hx Family Cancer: No Hx Family Endocrine Disorder: No Hx Family Neuromuscular Disorders: No Hx Family Neurologic Disorders: No Hx Family HEENT Disorders: No Hx Family Autoimmune Disorders: No Sister Living Status: Still Living Hx Family Cardiac Disorders: Yes Hx Family Respiratory Disorders: No Hx Family Cancer: Yes Hx Family Endocrine Disorder: Yes Mother Living Status: Hx Family Cardiac Disorders: No Hx Family Respiratory Disorders: No Hx Family Cancer: Yes (kidney) Hx Family GI Disorders: No Hx Family Endocrine Disorder: Yes (DM) Hx Family Neuromuscular Disorders: No Hx Family Neurologic Disorders: No Hx Family HEENT Disorders: No Hx Family Autoimmune Disorders: No Medications and Allergies Rivaroxaban [Xarelto] 20 mg PO HS 04/07/18 [History] Nitroglycerin [Nitrostat] 0.4 mg SL Q5M PRN MDD X3 DOSES CALL 911 05/01/18 [History] Topiramate [Topamax] 200 mg PO BID 06/12/18 [History] Cyclobenzaprine HCl 5 mg PO HS PRN 07/10/18 [History] Gabapentin [Neurontin] 600 mg PO QAM 07/10/18 [History] Gabapentin [Neurontin] 600 mg PO QPM 07/10/18 [History] Gabapentin [Neurontin] 900 mg PO HS 07/10/18 [History] Potassium Chloride [Klor-Con 10] 10 meq PO DAILY 07/10/18 [History] Pramipexole [Mirapex] 0.25 mg PO QAM 07/10/18 [History] Amitriptyline HCl 75 mg PO HS 04/07/19 [History] Aspirin Enteric Coated [Aspirin EC] 81 mg PO DAILY 04/07/19 [History] Atorvastatin [Lipitor] 40 mg PO HS #30 tablet 04/07/19 [Rx] DULoxetine [Cymbalta] 30 mg PO BID 04/07/19 [History] Omeprazole [PriLOSEC] 20 mg PO BID 04/07/19 [History] OxyCODONE/APAP 7.5/325 [Percocet 7.5/325 MG] 1 tab PO Q6H PRN 04/07/19 [History] Propafenone [Rhythmol] 150 mg PO Q8H 04/07/19 [History] Allergy/AdvReac Type Severity Reaction Status Date / Time walnut Allergy Severe Difficulty Verified 04/07/19 14:05 Breathing cephalexin AdvReac Nausea Verified 04/07/19 14:05 codeine AdvReac Itching Verified 04/07/19 14:05 optiform AdvReac Blister Uncoded 04/07/19 14:05 All Systems Review: The remainder of the systems were reviewed and are negative - Constitutional Constitutional: no fatigue, no lethargy, no weakness - Cardiovascular Cardiovascular: dyspnea at rest, dyspnea on exertion, irregular heart rhythm, le g edema, palpitations, rapid heart rate, no chest pain at rest, no chest pain with exertion, no diaphoresis, no radiating jaw, neck or arm pain, no orthopnea - Gastrointestinal Gastrointestinal: no nausea - Neurological Neurological: numbness (left upper extremity numbness x several weeks) Physical Examination Vital Signs, Last 4 Hours Temp Pulse Resp BP Pulse Ox 04/22/19 08:50 99.7 F H 04/22/19 08:00 93 14 100/72 96 04/22/19 07:00 95 15 98/68 97 04/22/19 06:00 94 20 102/68 96 General: Conversant, No Apparent Distress HEENT: Atraumatic, Normocephaly, Mucus Membranes Moist Neck: No JVD, Normal carotid pulses Cardiac: Reg Rate and Rhythm, Normal S1 and S2, No Murmur Lungs: Normal Breath Sounds, No Wheeze, Rales, Rhonchi Neuro: Alert and responsive, No focal deficits noted Abdomen: Soft, Non-Tender Skin: No rashes noted on visualized skin Musculoskeletal: No Chest Wall Tenderness Extremities: No Clubbing, No Cyanosis, Normal Pulses, Other (<1+ edema in left lower extremity, RLE s/p AKA) Results 04/22/19 03:29 04/22/19 03:29 Lab Results 04/21/19 04/21/19 04/21/19 21:54 21:54 21:54 WBC 10.2 Hgb 12.0 Hct 37.0 Plt Count 127 L INR Sodium 137 Potassium 3.6 Chloride 105 Carbon Dioxide 23 BUN 32 H Creatinine 0.99 Glucose 115 H Calcium 8.9 Magnesium Total Bilirubin AST ALT Alkaline Phosphatase Troponin I 0.05 H* B-Natriuretic Peptide 04/21/19 04/21/19 04/22/19 21:54 21:54 03:29 WBC Hgb Hct Plt Count INR 1.2 Sodium Potassium Chloride Carbon Dioxide BUN Creatinine Glucose Calcium Magnesium Total Bilirubin AST ALT Alkaline Phosphatase Troponin I 0.08 H* B-Natriuretic Peptide 710 H 04/22/19 04/22/19 04/22/19 03:29 03:29 03:29 WBC 8.1 Hgb 10.5 L D Hct 33.0 L Plt Count 113 L INR 1.4 Sodium 136 Potassium 3.6 Chloride 106 Carbon Dioxide 21 L BUN 29 H Creatinine 0.91 Glucose 106 H Calcium 8.4 L Magnesium 1.7 Total Bilirubin 0.5 AST 17 ALT 18 Alkaline Phosphatase 78 Troponin I B-Natriuretic Peptide Consult Discharge Plan - Plan Additional Instructions: Please follow-up with cardiology and primary care provider. Please return to the ED for any chest pain, syncope, dizziness, numbness, tingling, weakness, shortness of breath, or other new and worsening symptoms Referrals: NONE,PCP [Primary Care Provider] - < A - Last Filed: 04/23/19 10:04> Date of Encounter: 04/23/19 Time of Encounter: 10:03 - Attending Attestation I have personally performed a face to face evaluation on this patient. I have reviewed and agree with the documented findings and care plan as documented by the resident. History and Exam by me shows: 53-year-old pleasant female with history of sarcoidosis, Factor V leiden, paroxysmal A. fib and SVT status post ablation and pacemaker presented with symptomatic tachyarrhythmia which was reported as ventricular tachycardia necessitating cardioversion at OSH. Unfortunately we do not have the telemetry strips from OSH. Interrogation of pacemaker revealed atrial tachycardia and nonsustained ventricular tachycardia. Of note patient had normal coronaries on cardiac catheterization done in March 2019. AAOX3 in NAD at the bedside Hemodynamically stable Cardiopulmonary exam revealed S1, S2, no murmur; clear lungs Status post right BKA Rhythm reviewed - sinus rhythm, no acute ST T changes Echo preserved EF, no significant valvular heart disease Impression/plan: Nonsustained ventricular tachycardia- discontinue Rythmol. Start amiodarone 400 mg twice a day for 2 weeks then 200 mg daily. Continue Xarelto 20mg daily. Follow-up with supervisor unloading at [facility] in 2 weeks. Patient would need cardiac MRI to evaluate for cardiac sarcoidosis. Thanks, Dannie Dougherty MD [facility] Assessment and Plan Discussion w patient/family: The assessment and plan as outlined above was discussed with the patient and/or family members who expressed understanding and agreement. All questions were answered. Thank you for involving us in the care of your patient. Please call with any questions. History of Present Illness History of present illness: Ms. Haley is a 53 year old female All Systems Review: The remainder of the systems were reviewed and are negative Results 04/22/19 03:29 04/22/19 03:29
[2019-04-22] MEDS ORDERED: Acetaminophen 325 MG TABLET PO PRN (10:42)
[2019-04-22] MEDS: Amiodarone Premix 360 MG/200 ML BAG IVC SCH (10:43)
--- NOTE | 2019-04-22 10:57 | Internal Med Progress Note ---
Hospitalist Progress Note - Encounter Date of Encounter: 04/22/19 Time of Encounter: 11:00 - Subjective Interval History: Patient is lying down in bed. Denies any shortness of breath or chest pain at this time. No fever or chills reported. No nausea or vomiting. No dizziness or lightheadedness. - Exam Vitals: Temp Pulse Resp BP Pulse Ox 99.7 F H 93 19 100/66 94 04/22/19 08:50 04/22/19 10:00 04/22/19 10:00 04/22/19 10:00 04/22/19 10:00 Exam: General: Patient is alert, no acute distress, oriented x 3 Respiratory: Good respiratory effort. Normal breath sounds. No wheezing or crackles. Cardiovascular: Regular rate and rhythm. s1 and s2 normal No clicks, rubs, gallops, or murmurs. Trace pedal edema Abdomen: Abdomen is soft, nontender. Bowel sounds are present Musculoskeletal: Spontaneously moving all extremities Skin: warm, dry, intact. Neuro: Alert oriented x 3 normal cranial nerves, no focal deficits - Assessment and Plan (1) Ventricular tachycardia Current Visit: Yes Status: Resolved (2) CHF exacerbation Current Visit: Yes Status: Acute (3) CAD (coronary artery disease) Current Visit: Yes Status: Chronic (4) Pacemaker Current Visit: Yes Status: Chronic (5) Factor 5 Leiden mutation, heterozygous Current Visit: Yes Status: Chronic (6) COPD (chronic obstructive pulmonary disease) Current Visit: Yes Status: Chronic (7) DVT prophylaxis Current Visit: Yes Status: Acute (8) Status post amputation of lower extremity Current Visit: Yes Status: Chronic DVT Prophylaxis: On IV heparin - Summary of Assessment and Plan Summary of Assessment and Plan: Ventricular tachycardia: Patient had an episode of V. tach and was cardioverted at all.. Currently on IV amiodarone drip. Cardiology consulted. We will fol low recommendations. Also on IV heparin. Acute on chronic diastolic congestive heart failure: Responded well to Lasix given in the ER. Currently shortness of breath has improved. We will continue to monitor closely. Blood pressure is soft. We will hold off on further doses of IV Lasix. Factor V Leiden: Continue anticoagulation. Currently on IV Lasix. Atrial fibrillation: Currently in sinus rhythm. Continue amiodarone. Rythmol stopped. COPD: Chronic. Not in acute exacerbation. Continue bronchodilators as needed. Coronary artery disease: Resume aspirin, Lipitor. High risk for complications. - Time Spent with Patient Total time spent is greater than 50% in coordination of care (as documented) at patient's floor/unit and/or counseling patient: Internal Medicine: Result - Labs CBC & Chem 7: 04/22/19 03:29 04/22/19 03:29 Labs: Short CBC 04/21/19 04/22/19 Range/Units 21:54 03:29 WBC 10.2 8.1 (4.3-11.1) K/mcL Hgb 12.0 10.5 L D (11.5-15.4) g/dL Hct 37.0 33.0 L (35.3-44.9) % Plt Count 127 L 113 L (140-400) K/mcL Neutrophils # 7.9 5.8 (1.6-8.9) K/mcL BMP 04/21/19 04/22/19 21:54 03:29 Sodium 137 136 Potassium 3.6 3.6 Chloride 105 106 Carbon Dioxide 23 21 L BUN 32 H 29 H Creatinine 0.99 0.91 Glucose 115 H 106 H Calcium 8.9 8.4 L Cardiac Enzymes 04/21/19 04/22/19 Range/Units 21:54 03:29 Troponin I 0.05 H* 0.08 H* (< 0.04) ng/mL Liver Function 04/22/19 Range/Units 03:29 Total Bilirubin 0.5 (0.3-1.0) mg/dL AST 17 (13-39) Units/L ALT 18 (7-52) Units/L Alkaline Phosphatase 78 (34-104) Units/L Albumin 3.3 L (3.5-5.7) g/dL - ABG Interpretation ABG results: PT/INR, D-dimer PT 15.8 Seconds (9.4-12.1) H 04/22/19 03:29 Consult Discharge Plan - Plan Referrals: NONE,PCP [Primary Care Provider] - (2) CHF exacerbation Qualifiers: Heart failure type: diastolic Qualified Code(s): I50.33 - Acute on chronic diastolic (congestive) heart failure (3) CAD (coronary artery disease) Qualifiers: Coronary Disease-Associated Artery/Lesion type: [place] artery [place] vs. transplanted heart: [place] heart Associated angina: angina presence unspecified Qualified Code(s): I25.10 - Atherosclerotic heart disease of [place] coronary artery without angina pectoris (6) COPD (chronic obstructive pulmonary disease) Qualifiers: COPD type: unspecified COPD Qualified Code(s): J44.9 - Chronic obstructive pulmonary disease, unspecified
--- NOTE | 2019-04-22 12:43 | Electrocardiograph Report ---
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
[2019-04-22] MEDS ORDERED: Nitroglycerin 0.4 MG TAB.SUBL SL PRN (13:33)
[2019-04-22] MEDS ORDERED: *HR* OxyCODONE/APAP 7.5/325 TABLET PO PRN (13:33)
[2019-04-22] MEDS ORDERED: Gabapentin 300 MG CAPSULE PO SCH ×2 (18:00→21:00)
[2019-04-22] MEDS: Heparin 25,000 UNIT/250 ML D5W 25,000 UNIT/250 ML IV.SOLN IVC SCH (18:37)
[2019-04-22 19:20] VITALS: BP 110/73
--- NOTE | 2019-04-22 20:36 | Discharge Summary ---
<Giovani Valiente - Last Filed: 04/22/19 20:34> - NOTES TO OUTPATIENT PROVIDER Notes to Outpatient Provider: Was admitted to [facility] for CHF exacerbation and V. tach. Patient was cardioverted successfully at [facility] ED, and placed on an amiodarone drip. However patient signed out AMA on the evening of 04/22/19 Orders not resulted at time of discharge: Pending orders 04/22/19 06:00 ECG 12 lead ECG [ECG] AM 0600 Date of Encounter: 04/22/19 Time of Encounter: 19:23 - Discharge Diagnosis (1) CAD (coronary artery disease) Priority: Secondary Status: Chronic Qualifiers: Coronary Disease-Associated Artery/Lesion type: [place] fork artery [place] vs. transplanted heart: [place] fork heart Associated angina: angina presence unspecified Qualified Code(s): I25.10 - Atherosclerotic heart disease of [place] fork coronary artery without angina pectoris (2) Pacemaker Priority: Secondary Status: Chronic (3) Factor 5 Leiden mutation, heterozygous Priority: Secondary Status: Chronic (4) COPD (chronic obstructive pulmonary disease) Priority: Secondary Status: Chronic Qualifiers: COPD type: unspecified COPD Qualified Code(s): J44.9 - Chronic obstructive pulmonary disease, unspecified (5) Status post amputation of lower extremity Priority: Secondary Status: Chronic (6) CHF exacerbation Priority: Primary Status: Acute Qualifiers: Heart failure type: diastolic Qualified Code(s): I50.33 - Acute on chronic diastolic (congestive) heart failure (7) Ventricular tachycardia Priority: Primary Status: Resolved Hospital course: Ms. Haley is a 53 year old female who was admitted on 04/21/19 for CHF exacerbation and V. tach. Patient was successfully cardioverted and [facility] prior to arrival at this facility. Per reports [facility] ED spoke on the phone with on-call water resource agent Dr. Calle, who recommended the patient be placed on an amiodarone drip. Patient was also given 40 mg IV Lasix for diuresis. A Meek catheter was initiated to insure strict I&O's. When the patient arrived [facility] the amiodarone drip was discontinued, and a heparin drip was initiated as the patient is noted to have factor V Leiden disease. Cardiology evaluated the patient on 03/2619 and recommended continuation of the amiodarone drip until the following morning. However the patient signed out AMA on the evening of 04/22/19. This provider spoke with the patient and her at bedside with 2 nurses as witnessed. We discussed the significant risk of going back into a fatal arrhythmia if she were to sign out AMA. Other risks including permanent disability were also discussed. AMA form was signed, and witnessed by patient's . Recommended patient to follow-up with primary care provider and cardiology. Recommended return to ER for any new or worsening symptoms, including denial limiting to chest pain, shortness of breath, syncope, dizziness, numbness, or tingling. Discharge discussed with: patient, family, nurse - Time Spent with Patient Total time spent providing and/or coordinating discharge services: - Discharge Medications Prescriptions: No Action Rivaroxaban [Xarelto] 20 mg PO HS Nitroglycerin [Nitrostat] 0.4 mg SL Q5M PRN MDD X3 DOSES CALL 911 PRN Reason: Chest Pain Topiramate [Topamax] 200 mg PO BID Gabapentin [Neurontin] 600 mg PO QAM Cyclobenzaprine HCl 5 mg PO HS PRN PRN Reason: Muscle Spasm Potassium Chloride [Klor-Con 10] 10 meq PO DAILY Pramipexole [Mirapex] 0.25 mg PO QAM Gabapentin [Neurontin] 900 mg PO HS Gabapentin [Neurontin] 600 mg PO QPM Amitriptyline HCl 75 mg PO HS Aspirin Enteric Coated [Aspirin EC] 81 mg PO DAILY DULoxetine [Cymbalta] 30 mg PO BID Omeprazole [PriLOSEC] 20 mg PO BID OxyCODONE/APAP 7.5/325 [Percocet 7.5/325 MG] 1 tab PO Q6H PRN PRN Reason: Pain Propafenone [Rhythmol] 150 mg PO Q8H Atorvastatin [Lipitor] 40 mg PO HS #30 tablet Home Medications: Rivaroxaban [Xarelto] 20 mg PO HS 04/07/18 [History] Nitroglycerin [Nitrostat] 0.4 mg SL Q5M PRN MDD X3 DOSES CALL 911 05/01/18 [History] Topiramate [Topamax] 200 mg PO BID 06/12/18 [History] Cyclobenzaprine HCl 5 mg PO HS PRN 07/10/18 [History] Gabapentin [Neurontin] 600 mg PO QAM 07/10/18 [History] Gabapentin [Neurontin] 600 mg PO QPM 07/10/18 [History] Gabapentin [Neurontin] 900 mg PO HS 07/10/18 [History] Potassium Chloride [Klor-Con 10] 10 meq PO DAILY 07/10/18 [History] Pramipexole [Mirapex] 0.25 mg PO QAM 07/10/18 [History] Amitriptyline HCl 75 mg PO HS 04/07/19 [History] Aspirin Enteric Coated [Aspirin EC] 81 mg PO DAILY 04/07/19 [History] Atorvastatin [Lipitor] 40 mg PO HS #30 tablet 04/07/19 [Rx] DULoxetine [Cymbalta] 30 mg PO BID 04/07/19 [History] Omeprazole [PriLOSEC] 20 mg PO BID 04/07/19 [History] OxyCODONE/APAP 7.5/325 [Percocet 7.5/325 MG] 1 tab PO Q6H PRN 04/07/19 [History] Propafenone [Rhythmol] 150 mg PO Q8H 04/07/19 [History] Allergies/Adverse Reactions: Allergy/AdvReac Type Severity Reaction Status Date / Time [place] Allergy Severe Difficulty Verified 04/07/19 14:05 Breathing cephalexin AdvReac Nausea Verified 04/07/19 14:05 codeine AdvReac Itching Verified 04/07/19 14:05 optiform AdvReac Blister Uncoded 04/07/19 14:05 Date of admission: 04/21/19 20:56 Primary care physician: PCP NONE Consults: 04/21/19 22:15 Consult to Cardiology [CONS] Routine Comment: Consulting Provider: Cardiology [place] Reason for Consult: Vtach at [facility], was successfully cardioverted in their ED. [facility] reportedly spoke to Dr Calle. On Amio drip. Initial troponin negative and trending. On Heparin drip. Has extensive history of rhythm issues. On Rhythmol at home. S/p [address] Hagen spoke with Dr Giraldo at 22:18 tonight. Call Completed: Yes 04/22/19 10:07 Consult to Nurse Navigator [CONS] Routine Comment: chf - Constitutional Vitals: Temp Pulse Resp BP Pulse Ox 98.2 F 90 18 110/73 96 04/22/19 19:19 04/22/19 19:19 04/22/19 19:19 04/22/19 19:19 04/22/19 19:19 General appearance: Present: A&O X 3, pleasant, no acute distress, answers questions appropriately Exam: Constitutional: Obese female in no acute distress Head: Normocephalic, atraumatic Eyes: PERRL, EOMI, conjunctiva pink, sclera anicteric Neck: trachea midline Lungs: Clear to auscultation bilaterally. Nonlabored breathing on room air. No wheezes, rales, or rhonchi noted. Cardiac: RRR. +s1 +2 No murmurs, clicks, or rubs noted. GI: Abdomen soft, nontender, nondistended. Normoactive bowel sounds Extremities: Warm, radial pulses palpable and symmetrical. No cyanosis, pedal edema, or calf tenderness. Neuro: Alert and oriented 3. No focal deficits. Normal speech. Skin: Warm, dry, and intact. - Patient Status Disposition: Left Against Medical Advice Condition: Fair Functional capacity at discharge: independent ambulation Overall status at discharge: patient is progressing back to baseline - Discharge Instructions Follow Up With: NONE,PCP [Primary Care Provider] - Additional Instructions: Please follow-up with cardiology and primary care provider. Please return to the ED for any chest pain, syncope, dizziness, numbness, tingling, weakness, shortness of breath, or other new and worsening symptoms - Diet and Activity Activity: increase activity as tolerated Diet: low salt diet, other (Fluid restricted diet to 1.5 L) <Winston Hagen - Last Filed: 04/23/19 06:22> Orders not resulted at time of discharge: Pending orders 04/22/19 06:00 ECG 12 lead ECG [ECG] AM 0600 Date of Encounter: 04/23/19 - Discharge Diagnosis (1) CAD (coronary artery disease) Status: Chronic Qualifiers: Coronary Disease-Associated Artery/Lesion type: [place] artery [place] vs. transplanted heart: [place] heart Associated angina: angina presence unspecified Qualified Code(s): I25.10 - Atherosclerotic heart disease of [place] coronary artery without angina pectoris (2) Pacemaker Status: Chronic (3) Factor 5 Leiden mutation, heterozygous Status: Chronic (4) COPD (chronic obstructive pulmonary disease) Status: Chronic Qualifiers: COPD type: unspecified COPD Qualified Code(s): J44.9 - Chronic obstructive pulmonary disease, unspecified (5) Status post amputation of lower extremity Status: Chronic (6) CHF exacerbation Status: Acute Qualifiers: Heart failure type: diastolic Qualified Code(s): I50.33 - Acute on chronic diastolic (congestive) heart failure (7) Ventricular tachycardia Status: Resolved Hospital course: Ms. Haley is a 53 year old female - Time Spent with Patient Total time spent providing and/or coordinating discharge services: Date of admission: 04/21/19 20:56 Primary care physician: PCP NONE Consults: 04/21/19 22:15 Consult to Cardiology [CONS] Routine Comment: Consulting Provider: Cardiology [place] Reason for Consult: Vtach at [facility], was successfully cardioverted in their ED. [facility] reportedly spoke to Dr Calle. On Amio drip. Initial troponin negative and trending. On Heparin drip. Has extensive history of rhythm issues. On Rhythmol at home. S/p [address] Hagen spoke with Dr Giraldo at 22:18 [facility]. Call Completed: Yes 04/22/19 10:07 Consult to Nurse Navigator [CONS] Routine Comment: chf - Constitutional Vitals: Temp Pulse Resp BP Pulse Ox 98.2 F 90 18 110/73 96 04/22/19 19:19 04/22/19 19:19 04/22/19 19:19 04/22/19 19:19 04/22/19 19:19 - Attending Attestation Discussed with Dr. Valiente. Patient left AMA before I could see her.
[2019-04-23] MEDS ORDERED: Aspirin Enteric Coated 81 MG Tablet PO SCH (09:00)
[2019-04-23] MEDS ORDERED: Gabapentin 300 MG CAPSULE PO SCH (09:00)
== END 2019-04-22 20:24 | disposition left against medical advice (07) | DRG 308 ==
LOC: ICNU 20:56 → SUATTDRO 20:56 → 2NNU 04-22 16:16
PROVIDERS: ADMIT Internal Medicine Nephrology; ATTEND Internal Medicine

== ENCOUNTER 2019-11-07 14:06 | Observation (INO) ==
[2019-11-07] MEDS ORDERED: Amiodarone 150 MG in D5% in Water 100 ML IVPB ONE (14:29)
[2019-11-07] MEDS ORDERED: Amiodarone Premix 360 MG/200 ML BAG IVC ONE (14:30)
[2019-11-07 14:43] LABS: Basophils % 0.4 %; Eosinophils % 0.6 %; Hematocrit 38.8 % (35.3-44.9); Hemoglobin 13.1 g/dL (11.5-15.4); Immature Granulocytes % 0.6 % (0-4); Lymphocytes # 1.1 K/mcL (0.6-4.6); Lymphocytes % 15.7 %; Mean Corpuscular HGB Conc 33.8 g/dL (31.6-35.5); Mean Corpuscular Hemoglobin 33.7 pg (28.0-33.3); Mean Corpuscular Volume 99.7 fL (83.0-100.0); Mean Platelet Volume 9.1 fL (9.4-12.4); Monocytes # 0.3 K/mcL (0.0-1.3); Monocytes % 4.3 %; Neutrophils # 5.7 K/mcL (1.6-8.9); Platelet Count 150 K/mcL (140-400); Red Blood Count 3.89 M/mcL (3.82-4.97); Red Cell Distribution Width 13.2 % (11.5-14.5); Segmented Neutrophils % 78.4 %; White Blood Count 7.2 K/mcL (4.3-11.1)
[2019-11-07 14:54] LABS: Prothrombin Time 11.2 Seconds (9.4-12.1)
[2019-11-07 14:56] LABS: Activated Partial Thrombo Time 31.1 Seconds (26.0-36.0)
[2019-11-07 15:13] LABS: BUN/Creatinine Ratio 26 (6-26); Blood Urea Nitrogen 29 mg/dL (6-20); Calcium 8.7 mg/dL (8.6-10.3); Carbon Dioxide 18 mEq/L (23-29); Chloride 109 mEq/L (98-107); Glucose 219 mg/dL (70-105); Osmolality,Calculated 295 (280-300); Potassium 4.2 mEq/L (3.5-5.1); Sodium 136 mEq/L (136-145); eGFR For African Americans > 60 (> 60); eGFR For Non-African Americans 50 (> 60)
[2019-11-07 15:14] LABS: Troponin I < 0.03 ng/mL (< 0.04)
[2019-11-07] MEDS ORDERED: Naloxone 0.4 MG/ML INJ IVP PRN (16:45)
[2019-11-07] MEDS ORDERED: *HR* Amiodarone Premix 360 MG/200 ML BAG IVC ONE (16:49)
[2019-11-07] MEDS ORDERED: *HR* Amiodarone 150 MG/3 ML VIAL IVPB ONE (16:49)
[2019-11-07] MEDS ORDERED: *HR* OxyCODONE/APAP 10/325 TABLET PO STA (17:03)
[2019-11-07] MEDS ORDERED: *HR* OxyCODONE/APAP 7.5/325 TABLET PO PRN (17:36)
[2019-11-07] MEDS ORDERED: Furosemide 40 MG TABLET PO PRN (17:36)
[2019-11-07] MEDS ORDERED: Nitroglycerin 0.4 MG TAB.SUBL SL PRN (17:36)
[2019-11-07] MEDS: Gabapentin 300 MG CAPSULE PO SCH ×2 (18:53→21:16)
[2019-11-07] MEDS: *HR* Rivaroxaban 10 MG TABLET PO SCH (18:54)
[2019-11-07] MEDS ORDERED: Amiodarone Premix 360 MG/200 ML BAG IVC SCH (20:20)
[2019-11-07] MEDS: rOPINIRole 1 MG TABLET PO SCH (21:17)
[2019-11-07] MEDS: Topiramate 100 MG TABLET PO SCH (21:50)
[2019-11-08] MEDS ORDERED: Diltiazem CD (24hr) 120 MG CAPSULE PO SCH (09:00)
[2019-11-08] MEDS: Aspirin Enteric Coated 81 MG Tablet PO SCH (10:16)
[2019-11-08] MEDS: Topiramate 100 MG TABLET PO SCH ×2 (10:17→21:23)
[2019-11-08] MEDS: Gabapentin 300 MG CAPSULE PO SCH ×3 (10:17→21:22)
[2019-11-08] MEDS: *HR* Amiodarone 200 MG TABLET PO SCH (10:46)
[2019-11-08 11:36] LABS: Basophils % 0.8 %; Eosinophils # 0.2 K/mcL (0.0-0.6); Eosinophils % 5.5 %; Hematocrit 38.5 % (35.3-44.9); Hemoglobin 12.5 g/dL (11.5-15.4); Immature Granulocytes % 0.8 % (0-4); Lymphocytes # 0.9 K/mcL (0.6-4.6); Lymphocytes % 24.8 %; Mean Corpuscular HGB Conc 32.5 g/dL (31.6-35.5); Mean Corpuscular Hemoglobin 32.4 pg (28.0-33.3); Mean Corpuscular Volume 99.7 fL (83.0-100.0); Mean Platelet Volume 9.1 fL (9.4-12.4); Monocytes # 0.3 K/mcL (0.0-1.3); Monocytes % 7.2 %; Neutrophils # 2.2 K/mcL (1.6-8.9); Platelet Count 147 K/mcL (140-400); Red Blood Count 3.86 M/mcL (3.82-4.97); Red Cell Distribution Width 13.2 % (11.5-14.5); Segmented Neutrophils % 60.9 %; White Blood Count 3.6 K/mcL (4.3-11.1)
[2019-11-08 11:52] LABS: BUN/Creatinine Ratio 27 (6-26); Blood Urea Nitrogen 24 mg/dL (6-20); Calcium 8.5 mg/dL (8.6-10.3); Carbon Dioxide 22 mEq/L (23-29); Chloride 113 mEq/L (98-107); Glucose 88 mg/dL (70-105); Osmolality,Calculated 291 (280-300); Potassium 3.8 mEq/L (3.5-5.1); Sodium 139 mEq/L (136-145); eGFR For African Americans > 60 (> 60); eGFR For Non-African Americans > 60 (> 60)
[2019-11-08] MEDS: Metoprolol XL (24 HR) Succ 25 MG TAB.ER.24H PO SCH (12:11)
[2019-11-08] MEDS ORDERED: Acetaminophen 325 MG TABLET PO PRN (16:36)
[2019-11-08] MEDS: *HR* Rivaroxaban 10 MG TABLET PO SCH (17:42)
[2019-11-08] MEDS: Diltiazem CD (24hr) 120 MG CAPSULE PO SCH (21:20)
[2019-11-08] MEDS: rOPINIRole 1 MG TABLET PO SCH (21:23)
[2019-11-09 06:35] LABS: Basophils % 0.6 %; Eosinophils # 0.2 K/mcL (0.0-0.6); Eosinophils % 3.3 %; Hematocrit 35.7 % (35.3-44.9); Hemoglobin 11.5 g/dL (11.5-15.4); Immature Granulocytes % 0.4 % (0-4); Lymphocytes # 1.2 K/mcL (0.6-4.6); Lymphocytes % 24.2 %; Mean Corpuscular HGB Conc 32.2 g/dL (31.6-35.5); Mean Corpuscular Hemoglobin 32.9 pg (28.0-33.3); Monocytes # 0.4 K/mcL (0.0-1.3); Monocytes % 8.6 %; Platelet Count 140 K/mcL (140-400); Red Cell Distribution Width 13.4 % (11.5-14.5); Segmented Neutrophils % 62.9 %; White Blood Count 4.8 K/mcL (4.3-11.1)
[2019-11-09 06:53] LABS: BUN/Creatinine Ratio 29 (6-26); Blood Urea Nitrogen 29 mg/dL (6-20); Calcium 8.5 mg/dL (8.6-10.3); Carbon Dioxide 20 mEq/L (23-29); Chloride 113 mEq/L (98-107); Glucose 122 mg/dL (70-105); Osmolality,Calculated 301 (280-300); Potassium 3.7 mEq/L (3.5-5.1); Sodium 142 mEq/L (136-145); eGFR For African Americans > 60 (> 60); eGFR For Non-African Americans 57 (> 60)
[2019-11-09] MEDS: Metoprolol XL (24 HR) Succ 25 MG TAB.ER.24H PO SCH (08:05)
[2019-11-09] MEDS: Gabapentin 300 MG CAPSULE PO SCH (08:06)
[2019-11-09] MEDS: Aspirin Enteric Coated 81 MG Tablet PO SCH (08:06)
[2019-11-09] MEDS: Topiramate 100 MG TABLET PO SCH (08:06)
[2019-11-09] MEDS: *HR* Amiodarone 200 MG TABLET PO SCH (08:06)
[2019-11-09] MEDS: Diltiazem CD (24hr) 120 MG CAPSULE PO SCH (08:06)
[2019-11-09 11:46] VITALS: BP 91/61
== END 2019-11-09 14:16 | disposition home or self-care (01) ==
LOC: EMEROOARM 14:06 → 2NNU 14:06
PROVIDERS: ADMIT Internal Medicine; ATTEND Internal Medicine